=== PATIENT | female | born 1960 | race Caucasian/White ===

== ENCOUNTER 2017-03-28 13:04 | Emergency (ER) | payer MEDICARE, MEDICAID ==
[~2017-03-28] VITALS: Ht 172.7 cm; Wt 120.5 kg
[~2017-03-28 13:04] MED LIST: ATEN25TA PO; CITA20TA9 PO; METH10TA76 PO; OXYC5CAP12 PO
[2017-03-28 13:05] VITALS: Ht 172.7 cm; Wt 120.5 kg
--- OUTSIDE RECORDS SUMMARY | 2017-03-28 13:08 | XMS REPORT | Summary of Care ---
Author Author Alban Basurto M.D. Unknown Address Unknown Phone Unavailable Care Team Providers Care Paint Laboratory Technician Name Role Phone Felisha Basurto M.D. Unavailable Unavailable Cheyenne Singleton Unavailable Unavailable Unavailable Unavailable Functional Status Name Dates Details Functional status health issues are not documented Status: Name Dates Details Cognitive status health issues are not documented Status: Problems Name Dates Details Pre-op exam (V72.84, Z01.818) Status: Active Intractable abdominal pain (789.00, R10.9) Status: Active Chronic pancreatitis (577.1, K86.1) Status: Active Morbid obesity (278.01, E66.01) Status: Active Medications Name Dates Details Methadone HCl TABS Active OxyCODONE HCl TABS * Refills: 0 Active Allergies and Adverse Reactions Name Dates Details No Known Allergies (Allergy) Status: Active Past Medical History Name Dates Details History of abdominal pain (V13.89, Z87.898) Status: Resolved History of Broken bones (829.0, T14.8) Status: Resolved History of Chronic back pain (724.5, M54.9) Status: Resolved History of Decreased vision (369.9, H54.7) Status: Resolved History of depression (V11.8, Z86.59) Status: Resolved History of hearing loss (V12.49, Z86.69) Status: Resolved History of hypertension (V12.59, Z86.79) Status: Resolved History of insomnia (V13.89, Z87.898) Status: Resolved History of malignant neoplasm (V10.90, Z85.9) Status: Resolved History of Weight gain (783.1, R63.5) Status: Resolved Procedures Procedure Dates Details History of Breast Surgery Lumpectomy History of Section Procedures not documented Immunization Name Dates Details Immunizations not documented Family History Name Dates Details Family history of hypertension (V17.49, Z82.49) Comments: Family History Status: Active Family history of malignant neoplasm (V16.9, Z80.9) Comments: Family History Status: Active Family history of osteoporosis (V17.81, Z82.62) Comments: Family History Status: Active Family history of Back pain (724.5, M54.9) Comments: Family History Status: Active Family history of alcoholism (V17.0, Z81.1) Comments: Family History Status: Active Family history of Bleeding disorder (287.9, D68.9) Comments: Family History Status: Active Social History Name Dates Details - Status: Name Dates Details Former smoker Vital Signs Date Test Result Details No Known Vitals to report Results Date Description Value Details Results not documented Plan of Care Name Dates Details Planned Observations Planned Goals not documented Instructions Name Dates Details Instructions not documented Encounters Appointment; Alban Basurto M.D. Encounter Diagnosis: Problem not documented On 19-Oct-2016 11:45 Appointment; Alban Basurto M.D. Encounter Diagnosis: Problem not documented On 30-Sep-2016 08:30
--- OUTSIDE RECORDS SUMMARY | 2017-03-28 13:08 | XMS REPORT | Summary of Care ---
Author Author Alban Basurto M.D. Organization Unknown Address Unknown Phone Unavailable Care Team Providers Care Field Agronomist Name Role Phone Felisha Basurto M.D. Unavailable Unavailable Cheyenne Singleton Unavailable Unavailable Unavailable Unavailable Functional Status Name Dates Details Functional status health issues are not documented Status: Name Dates Details Cognitive status health issues are not documented Status: Problems Name Dates Details Pre-op exam (V72.84, Z01.818) Status: Active Intractable abdominal pain (789.00, R10.9) Status: Active Medications Name Dates Details Medication not documented Allergies and Adverse Reactions Name Dates Details Allergy history not documented Status: Past Medical History Name Dates Details History of abdominal pain (V13.89, Z87.898) Status: Resolved History of Chronic back pain (724.5, M54.9) Status: Resolved History of Decreased vision (369.9, H54.7) Status: Resolved History of depression (V11.8, Z86.59) Status: Resolved History of hearing loss (V12.49, Z86.69) Status: Resolved History of insomnia (V13.89, Z87.898) Status: Resolved History of Weight gain (783.1, R63.5) Status: Resolved Procedures Procedure Dates Details Procedures not documented Immunization Name Dates Details Immunizations not documented Social History Name Dates Details Unknown if ever smoked Vital Signs Date Test Result Details No Known Vitals to report Results Date Description Value Details 30-Sep-2016 11:11 PROTIME PANEL 7000 PROTIME 14.4 secs Range: 12.0-14.9 INR 1.13 Plan of Care Name Dates Details Planned Observations Planned Goals not documented Planned Encounters Appointment; Provider: Alban Basurto M.D. On 05-Oct-2016 12:00 Interventions Provided Labs/Procedures/Imaging* PROTIME PANEL 7000; Done: Sep 30 2016 9:24AM Instructions Name Dates Details Instructions not documented Encounters Appointment; Alban Basurto M.D. Encounter Diagnosis: Problem not documented On 30-Sep-2016 08:30
--- OUTSIDE RECORDS SUMMARY | 2017-03-28 13:08 | XMS REPORT | Referral Summary ---
Author Author [facility] Organization [facility] Address Unknown Phone Unavailable Care Team Providers Care Book Binder Name Role Phone Susan Singleton Primary Care Physician [phone] Encounter Date(s): 09/28/16 - 09/28/16 [facility] [place] [id number] Discharge Diagnosis: Chronic back pain Discharge Diagnosis: Alcoholism Discharge Diagnosis: Abnormal blood sugar Discharge Diagnosis: Acute pancreatitis Discharge Diagnosis: Cellulitis Discharge Diagnosis: Noncompliance Discharge Diagnosis: Morbid obesity Discharge Diagnosis: Benign essential hypertension Discharge Diagnosis: Breast cancer Discharge Disposition: 01-Home or Self Care Attending Physician: Gilson Singleton MD Admitting Physician: Gilson Singleton MD Vital Signs Most recent to 1 oldest [Reference Range]: Blood Pressure 130/90 mmHg [90-140/60-90 mmHg] (09/28/16 4:25 PM) Problem List Condition Effective Dates Status Health Status Informant Alcoholism(Confirmed Active ) Benign essential Active hypertension(Confirm ed) Abnormal blood Active sugar(Confirmed) Chronic back Active pain(Confirmed) Chronic pain Active disorder(Confirmed) Noncompliance(Confir Active med) Abdominal Active hernia(Confirmed) Left hip Active pain(Confirmed) History of bilateral Active breast implants(Confirmed) H/O bilateral Active mastectomy(Confirmed ) Chronic knee Active pain(Confirmed) Breast Active cancer(Confirmed) Menometrorrhagia(Con Active firmed) Morbid Active patient obesity(Confirmed) Tobacco Active patient user(Confirmed) Allergies, Adverse Reactions, Alerts No Known Allergies Medications amitriptyline 75 mg oral tablet 75 mg 1 tabs, Oral, Bedtime (once a day), # 30 tabs, 0 Refill(s), Pharmacy: [facility] [id number], 1 tabs Oral Bedtime (once a day) Start Date: 09/21/16 Status: Ordered atenolol 25 mg oral tablet See Instructions, TAKE 1 TABLET BY MOUTH DAILY, # 30 tabs, eRx: [facility] [id number], TAKE 1 TABLET BY MOUTH DAILY Start Date: 09/07/16 Status: Ordered citalopram 20 mg oral tablet See Instructions, TAKE 1 TABLET BY MOUTH DAILY, # 30 tabs, eRx: [facility] [id number], TAKE 1 TABLET BY MOUTH DAILY Start Date: 09/07/16 Status: Ordered cloNIDine 0.1 mg oral tablet mg tabs, Oral, TID, 0 Refill(s) Start Date: 09/21/16 Status: Ordered fentaNYL Topical, 0 Refill(s) Start Date: 09/21/16 Status: Ordered Keflex 250 mg oral capsule 250 mg 1 caps, Oral, QID, X 10 days, # 40 caps, 0 Refill(s), Pharmacy: [facility] [id number], 1 caps Oral QID,x10 days Start Date: 09/21/16 Stop Date: 10/01/16 Status: Ordered Lasix 20 mg oral tablet 20 mg 1 tabs, Oral, Daily, # 14 tabs, 0 Refill(s), Pharmacy: [id number], 1 tabs Oral Daily Start Date: 09/21/16 Status: Ordered methadone 10 mg oral tablet See Instructions, 2 tabs with bkfst, 2 tabs with lunch, and 3 tabs with supper. Must last 7 days, # 49 tabs, 0 Refill(s) Start Date: 09/21/16 Status: Ordered Norvasc 5 mg oral tablet 5 mg 1 tabs, Oral, BID, # 60 tabs, 0 Refill(s), Pharmacy: [facility], 1 tabs Oral BID Start Date: 06/14/15 Status: Ordered oxyCODONE 5 mg oral tablet 1-2 tabs, Oral, q6hr, as needed for pain, Fifteen tabs must last 7 days., # 15 tabs, 0 Refill(s) Start Date: 09/28/16 Status: Ordered Results No data available for this section Immunizations No data available for this section Procedures No data available for this section Social History Social History Type Response Smoking Status Current every day smoker; Tobacco use per day: Less than 1/4 pack1 1Pt. states she smokes 3 cigarettes a day and is trying to quit. Assessment and Plan Extracted from: Title: Ambulatory Patient Education Author: Gilson Singleton MD Date: Musculoskeletal Back Pain, Adult Back pain is very common in adults.The cause of back pain is rarely dangerous and the pain often gets better over time.The cause of your back pain may not be known. Some common causes of back pain include: Strain of the muscles or ligaments supporting the spine. Wear and tear (degeneration) of the spinal disks. Arthritis. Direct injury to the back. For many people, back pain may return. Since back pain is rarely dangerous, most people can learn to manage this condition on their own. HOME CARE INSTRUCTIONS Watch your back pain for any changes. The following actions may help to lessen any discomfort you are feeling: Remain active. It is stressful on your back to sit or geographic information systems engineer one place for long periods of time. Do not sit, drive, or geographic information systems engineer one place for more than 30 minutes at a time. Take short walks on even surfaces as soon as you are able.Try to increase the length of time you walk each day. Exercise regularly as directed by your health care provider. Exercise helps your back heal faster. It also helps avoid future injury by keeping your muscles strong and flexible. Do not stay in bed.Resting more than 12 days can delay your recovery. Pay attention to your body when you bend and lift. The most comfortable positions are those that put less stress on your recovering back. Always use proper lifting techniques, including: Bending your knees. Keeping the load close to your body. Avoiding twisting. Find a comfortable position to sleep. Use a firm mattress and lie on your side with your knees slightly bent. If you lie on your back, put a pillow under your knees. Avoid feeling anxious or stressed.Stress increases muscle tension and can worsen back pain.It is important to recognize when you are anxious or stressed and learn ways to manage it, such as with exercise. Take medicines only as directed by your health care provider. Over-the- counter medicines to reduce pain and inflammation are often the most helpful. Your health care provider may prescribe muscle relaxant drugs.These medicines help dull your pain so you can more quickly return to your normal activities and healthy exercise. Apply ice to the injured area: Put ice in a plastic bag. Place a towel between your skin and the bag. Leave the ice on for 20 minutes, 23 times a day for the first 23 days. After that, ice and heat may be alternated to reduce pain and spasms. Maintain a healthy weight. Excess weight puts extra stress on your back and makes it difficult to maintain good posture. SEEK MEDICAL CARE IF: You have pain that is not relieved with rest or medicine. You have increasing pain going down into the legs or buttocks. You have pain that does not improve in one week. You have night pain. You lose weight. You have a fever or chills. SEEK IMMEDIATE MEDICAL CARE IF: You develop new bowel or bladder control problems. You have unusual weakness or numbness in your arms or legs. You develop nausea or vomiting. You develop abdominal pain. You feel faint. This information is not intended to replace advice given to you by your health care provider. Make sure you discuss any questions you have with your health care provider. Document Released: 10/18/2006 Document Revised: 11/08/2015 Document Reviewed: [employer] Patient Education 2016 [employer] Preventive Medicine Back Exercises Back exercises help treat and prevent back injuries. The goal of back exercises is to increase the strength of your abdominal and back muscles and the flexibility of your back. These exercises should be started when you no longer have back pain. Back exercises include: Pelvic Tilt. Lie on your back with your knees bent. Tilt your pelvis until the lower part of your back is against the floor. Hold this position 5 to 10 sec and repeat 5 to 10 times. Knee to Chest. Pull first 1 knee up against your chest and hold for 20 to 30 seconds, repeat this with the other knee, and then both knees. This may be done with the other leg straight or bent, whichever feels better. Sit-Ups or Curl-Ups. Bend your knees 90 degrees. Start with tilting your pelvis, and do a partial, slow sit-up, lifting your trunk only 30 to 45 degrees off the floor. Take at least 2 to 3 seconds for each sit-up. Do not do sit-ups with your knees out straight. If partial sit-ups are difficult, simply do the above but with only tightening your abdominal muscles and holding it as directed. Hip-Lift. Lie on your back with your knees flexed 90 degrees. Push down with your feet and shoulders as you raise your hips a couple inches off the floor; hold for 10 seconds, repeat 5 to 10 times. Back arches. Lie on your stomach, propping yourself up on bent elbows. Slowly press on your hands, causing an arch in your low back. Repeat 3 to 5 times. Any initial stiffness and discomfort should lessen with repetition over time. Shoulder-Lifts. Lie face down with arms beside your body. Keep hips and torso pressed to floor as you slowly lift your head and shoulders off the floor. Do not overdo your exercises, especially in the beginning. Exercises may cause you some mild back discomfort which lasts for a few minutes; however, if the pain is more severe, or lasts for more than 15 minutes, do not continue exercises until you see your caregiver. Improvement with exercise therapy for back problems is slow. See your caregivers for assistance with developing a proper back exercise program. This information is not intended to replace advice given to you by your health care provider. Make sure you discuss any questions you have with your health care provider. Document Released: 11/25/2005 Document Revised: 01/09/2013 Document Reviewed: [employer] Interactive Patient Education 2016 [employer] No follow up information was provided. Extracted from: Title: Office Visit Note Author: Gilson Singleton MD Date: 09/28/16 Assessment/Plan Abnormal blood sugar This issue was reviewed, appears stable, and current therapy continued except as mentioned. Appropriate lab was reviewed from the most recent appropriate entry and lab was ordered if needed in the cpoe/nursing orders, and follow up recommended generally in 90 days and no later then six months. NO victoza at this time due to pancreatitis. Was from alcohol but would not restart meds at this time. Acute pancreatitis The patient's issue is nearly or completely resolved. There is no further issues or testing desired by them at this time. See above. Alcoholic pancreatitis Still having some pain from this. Advised NOT to drink ETOH. Continue with bland diet for now. Ordered: Office Visit Level 5 Est 05255 [1] Alcoholism The patient's issue is nearly or completely resolved. There is no further issues or testing desired by them at this time. She reports that was a brief binge and is not and will not repeat her drinking. UDS may be required in the future fora condition of her pain medication. The patient has family members present who are agreeable with today's plan and have no additional concerns or requests. Daughter here. Benign essential hypertension This issue was reviewed, appears stable, and current therapy continued except as mentioned. Appropriate lab was reviewed from the most recent appropriate entry and lab was ordered if needed in the cpoe /nursing orders, and follow up recommended generally in 90 days and no later then six months. The patient had an elevated blood pressure reading and is to monitor their bp and call with a report if consistently > 140/90. [facility]. Breast cancer The patient's issue is nearly or completely resolved. There is no further issues or testing desired by them at this time. Chronic back pain This issue was reviewed, appears stable, and current therapy continued except as mentioned. Appropriate lab was reviewed from the most recent appropriate entry and lab was ordered if needed in the cpoe/nursing orders, and follow up recommended generally in 90 days and no later then six months. After much discussion she wants to continue pain management here. From now on she will only get one week of methadone and oxycodone at a time. Drug screeningmay be required at any time for continuation. Patient is agreeable. [facility] report reviewed. Fentanyl is stopped and methadone was given by Tiffany from 09/14 for 20 days. Chronic back pain I had d/w Dr. Singleton about refilling the pt's meds today. He agreed to fill only for 1 week, then had to have appt with him. I went ahead andprinted off the scripts for methadone and oxycodone and handed to pt in clinic. Unfortunately, we received a call from the pharmacist shortly after she left, and was told that she had just filled methadone #60 on 09/14. D/w pharmacist NOT to fill methadone or oxycodone. Pt is scheduled to RTC on 09/[address] Singleton. Ordered: methadone, See Instructions, 2 tabs with bkfst, 2 tabs with lunch, and 3 tabs with supper. Must last 7 days, # 49 tabs, 0 Refill(s) oxyCODONE, 1-2 tabs, Oral, q6hr, as needed for pain, # 10 tabs, 0 Refill(s), # 30 MUST LAST 15 DAYS Office Visit Level 5 Est [id number] [2] Ordered: oxyCODONE, 1-2 tabs, Oral, q6hr, as needed for pain, Fifteen tabs must last 7 days., # 15 tabs, 0 Refill(s) Morbid obesity Diet and exercise as tolerated and feasible. Consider medication when interested. Noncompliance See above.
--- OUTSIDE RECORDS SUMMARY | 2017-03-28 13:09 | XMS REPORT | Referral Summary ---
Author Author [facility], [facility] Medicine Organization [facility] Address Unknown Phone Unavailable Care Team Providers Care Cooker Helper Name Role Phone Susan Singleton Primary Care Physician [phone] Encounter VC Date(s): 04/06/16 - 04/06/16 [facility] [place] [id number] Discharge Disposition: 01-Home or Self Care Attending Physician: Gilson Singleton MD Admitting Physician: Gilson Singleton MD Vital Signs Most recent to 1 oldest [Reference Range]: Blood Pressure 160/90 mmHg [90-140/60-90 mmHg] *HI* (04/06/16 4:06 PM) Problem List Condition Effective Dates Status Health Status Informant Benign essential Active hypertension(Confirm ed) Abnormal blood Active sugar(Confirmed) Chronic back Active pain(Confirmed) Chronic pain Active disorder(Confirmed) Abdominal Active hernia(Confirmed) Left hip Active pain(Confirmed) History of bilateral Active breast implants(Confirmed) H/O bilateral Active mastectomy(Confirmed ) Chronic knee Active pain(Confirmed) Breast Active cancer(Confirmed) Menometrorrhagia(Con Active firmed) Morbid Active patient obesity(Confirmed) Tobacco Active patient user(Confirmed) Allergies, Adverse Reactions, Alerts No Known Allergies Medications amitriptyline 75 mg oral tablet 75 mg 1 tabs, Oral, Bedtime (once a day), # 30 tabs, 0 Refill(s) Start Date: 04/12/15 Status: Ordered atenolol 25 mg oral tablet 25 mg 1 tabs, Oral, Daily, # 30 tabs, 0 Refill(s), Pharmacy: [facility] [id number], 1 tabs Oral Daily Start Date: 11/20/15 Status: Ordered CeleXA 20 mg oral tablet 20 mg 1 tabs, Oral, Daily, # 30 tabs, 0 Refill(s), Pharmacy: [facility] [id number], 1 tabs Oral Daily Start Date: 01/02/16 Status: Ordered methadone 10 mg oral tablet See Instructions, 2 tabs with bkfst, 2 tabs with lunch, and 3 tabs with supper. Must last 14 Days Fill 04/06/16., # 98 tabs, 0 Refill(s) Start Date: 04/06/16 Status: Ordered Norvasc 5 mg oral tablet 5 mg 1 tabs, Oral, BID, # 60 tabs, 0 Refill(s), Pharmacy: [facility], 1 tabs Oral BID Start Date: 06/14/15 Status: Ordered oxyCODONE 5 mg oral tablet 1-2 tabs, Oral, q6hr, as needed for pain, May fill q 14 days. Fill today ., # 30 tabs, 0 Refill(s), #30 MUST LAST 15 DAYS Start Date: 04/06/16 Status: Ordered Victoza 18 mg/3 mL subcutaneous solution 0.6 mg, SubCutaneous, Daily, # 3 mL, 0 Refill(s), Pharmacy: [facility] [id number], 0.6 mg SubCutaneous Daily,x30 days Start Date: 04/06/16 Stop Date: 05/06/16 Status: Ordered Results Hematology Most recent to 1 oldest [Reference Range]: WBC [4.8-10.8 10.2 10*3/uL 10*3/uL] (04/06/16 4:45 PM) RBC [4.00-5.20] 4.42 (04/06/16 4:45 PM) Hgb [12.0-16.0 14.2 gm/dL gm/dL] (04/06/16 4:45 PM) Hct [37.0-47.0 %] 41.0 % (04/06/16 4:45 PM) MCV [82.0-99.0 fL] 92.8 fL (04/06/16 4:45 PM) MCH [27.0-32.0 pg] 32.1 pg *HI* (04/06/16 4:45 PM) MCHC [32.0-36.0 34.6 gm/dL gm/dL] (04/06/16 4:45 PM) RDW [11.5-14.5 %] 13.4 % (04/06/16 4:45 PM) Platelet [150-400 228 10*3/uL 10*3/uL] (04/06/16 4:45 PM) MPV [8.8-14.8 fL] 11.3 fL (04/06/16 4:45 PM) Immature 0.3 % Granulocytes (04/06/16 4:45 PM) [0.0-1.0 %] Neutrophils [51-75 67 % %] (04/06/16 4:45 PM) Lymphocytes [20-46 23 % %] (04/06/16 4:45 PM) Monocytes [4-11 %] 8 % (04/06/16 4:45 PM) Eosinophils [0-4 %] 2 % (04/06/16 4:45 PM) Basophils [0-2 %] 1 % (04/06/16 4:45 PM) Neutro Absolute 6.85 10*3 [1.90-7.00 10*3] (04/06/16 4:45 PM) Lymph Absolute 2.29 10*3 [0.80-3.30 10*3] (04/06/16 4:45 PM) [place] Absolute 0.80 10*3 [0.30-1.00 10*3] (04/06/16 4:45 PM) Eos Absolute 0.16 10*3 [0.00-0.50 10*3] (04/06/16 4:45 PM) Baso Absolute 0.05 10*3 [0.00-0.20 10*3] (04/06/16 4:45 PM) Chemistry Most recent to 1 oldest [Reference Range]: Sodium Lvl [135-144 140 mEq/L mEq/L] (04/06/16 4:45 PM) Potassium Lvl 3.9 mEq/L [3.5-5.2 mEq/L] (04/06/16 4:45 PM) Chloride [99-111 109 mEq/L mEq/L] (04/06/16 4:45 PM) CO2 [22-31 mEq/L] 23 mEq/L (04/06/16 4:45 PM) AGAP [3-20] 8 (04/06/16 4:45 PM) BUN [10-20 mg/dL] 11 mg/dL (04/06/16 4:45 PM) Glucose Lvl [70-99 91 mg/dL mg/dL] (04/06/16 4:45 PM) Creatinine Lvl 1.08 mg/dL [0.57-1.11 mg/dL] (04/06/16 4:45 PM) eGFR [>60 mL/min] 53 mL/min 1 *ABN* (04/06/16 4:45 PM) Calcium Lvl 9.4 mg/dL [8.9-10.5 mg/dL] (04/06/16 4:45 PM) Albumin Lvl [3.5-5.0 3.9 gm/dL gm/dL] (04/06/16 4:45 PM) Total Protein 7.0 gm/dL [6.4-8.3 gm/dL] (04/06/16 4:45 PM) Globulin [1.8-4.0 3.1 gm/dL gm/dL] (04/06/16 4:45 PM) ALT [0-55 U/L] 89 U/L *HI* (04/06/16 4:45 PM) AST [5-34 U/L] 105 U/L *HI* (04/06/16 4:45 PM) Alk Phos [40-150 98 U/L U/L] (04/06/16 4:45 PM) Bili Total [0.2-1.2 0.4 mg/dL mg/dL] (04/06/16 4:45 PM) TSH with Reflex Free 1.01 T4 [0.35-4.94] (04/06/16 4:45 PM) Hgb A1c [4.1-5.6 %] 5.7 % *HI* (04/06/16 4:45 PM) eAvg Glucose 116.9 mg/dL (04/06/16 4:45 PM) 1Result Comment: Multiply eGFR results by 1.21 for race. Immunizations No data available for this section Procedures No data available for this section Social History Social History Type Response Smoking Status Current every day smoker Assessment and Plan Extracted from: Title: Ambulatory Patient Education Author: Gilson Singleton MD Date: 04/06/16 Family Medicine Back Exercises Back exercises help treat [...] Released: 11/25/2005 Document Revised: 01/09/2013 Document Reviewed: [employer] Patient Information 2015 [employer] No follow up information was provided. Extracted from: Title: Office Visit Note Author: Gilson Singleton MD Date: 04/06/16 Assessment/Plan Abnormal blood sugar This issue was reviewed, appears stable, and current therapy continued except as mentioned. Appropriate lab was reviewed from the most recent appropriate entry and lab was ordered if needed in the cpoe/nursing orders, and follow up recommended generally in 90 days and no later then six months. Lab pending. Benign essential hypertension This issue was reviewed, appears stable, and current therapy continued except as mentioned. Appropriate lab was reviewed from the most recent appropriate entry and lab was ordered if needed in the cpoe /nursing orders, and follow up recommended generally in 90 days and no later then six months. The patient reports their blood pressure has been stable at home and is not having any significant or related problems. There has been no chest pain, chest pressure, soa/casanova. The patient had an elevated blood pressure reading and is to monitor their bp and call with a report if consistently > 140/90. The patient has family members present who are agreeable with today's plan and have no additional concerns or requests. Son here. Breast cancer The patient's issue is nearly [...] days and no later then six months. Methadone to 10mg 2 am, 2 noon, 3 pm, 98 every 14 days. Percocet refilled. Menometrorrhagia Seeing Dr. Vick. Morbid obesity Diet and exercise as tolerated and feasible. Consider medication when interested. See above. Resume victoza. RTC in 30 days. Tobacco user Smoking Cessation was discussed. The patient is welcome to f/u for therapy or medication for smoking cessation at any time that they are willing to quit. Orders: methadone, See Instructions, 2 tabs with bkfst, 2 tabs with lunch, and 3 tabs with supper. Must last 14 Days Fill 04/06/16., # 98 tabs, 0 Refill(s) oxyCODONE, 1-2 tabs, Oral, q6hr, as needed for pain, May fill q 14 days. Fill today 04/06/16., # 30 tabs, 0 Refill(s), #30 MUST LAST 15 DAYS
--- OUTSIDE RECORDS SUMMARY | 2017-03-28 13:09 | XMS REPORT ---
Author Author GENERATED, SYSTEM Organization Unknown Address Unknown Phone Unavailable Care Team Providers [facility] Name Role Phone UNASSIGNED DOCTOR MD OSVALDO DOCTOR PP [phone] Reason For Visit Reason for Visit from 09/07/2016 2:00 AM:* Pt Stated Reason for Adm : Abdominal pain Chief Complaint ACUTE PANCREATITIS Social History Social History from 09/14/2016 1:36 PM:* Tobacco Use? : Light Tobacco Smoker Social History from 09/07/2016 2:00 AM:* Tobacco Use? : Light Tobacco Smoker Functional Status Functional Status from 09/14/2016 8:45 AM:* LOC : Alert * Oriented To : Person,Place,Time * Weight Bearing Status : Full * Assist Level : Partial * # Assists : 1 Functional Status from 09/13/2016 7:25 PM:* LOC : Alert * Oriented To : Person,Place,Time,Event * Weight Bearing Status : Full * Assist Level : Independent * # Assists : 1 Functional Status from 09/13/2016 8:00 AM:* LOC : Alert * Oriented To : Person,Place,Time * Weight Bearing Status : Full * Assist Level : Partial * # Assists : 1 Functional Status from 09/12/2016 9:10 PM:* LOC : Alert * Oriented To : Person,Place,Time,Event * Weight Bearing Status : Full * Assist Level : Partial * # Assists : 1 Functional Status from 09/12/2016 7:55 AM:* LOC : Alert * Oriented To : Person,Place,Time,Event * Weight Bearing Status : Full * Assist Level : Partial * # Assists : 1 Functional Status from 09/11/2016 9:00 PM:* LOC : Alert * Oriented To : Person,Place,Time,Event * Weight Bearing Status : Full * Assist Level : Independent * # Assists : 1 Functional Status from 09/11/2016 10:47 AM:* LOC : Alert * Oriented To : Person,Place,Time,Event * Weight Bearing Status : Full * Assist Level : Partial * # Assists : 1 Functional Status from 09/10/2016 8:40 PM:* LOC : Alert * Oriented To : Person,Place,Time,Event * Weight Bearing Status : Full * Assist Level : Partial * # Assists : 1 Functional Status from 09/10/2016 10:45 AM:* LOC : Alert * Oriented To : Person,Place,Time,Event * Weight Bearing Status : Full * Assist Level : Independent * # Assists : Independent Functional Status from 09/09/2016 8:03 PM:* LOC : Alert * Oriented To : Person,Place,Time,Event * Weight Bearing Status : Full * Assist Level : Partial * # Assists : 1 Functional Status from 09/09/2016 8:00 AM:* Weight Bearing Status : Full * Assist Level : Partial * # Assists : 1 Functional Status from 09/08/2016 10:45 PM:* LOC : Alert * Oriented To : Person,Place,Event * Weight Bearing Status : Full * Assist Level : Partial * # Assists : 1 Functional Status from 09/08/2016 8:41 AM:* LOC : Alert * Oriented To : Person,Place,Time,Event * Weight Bearing Status : Full * Assist Level : Partial * # Assists : 1 Functional Status from 09/07/2016 8:10 PM:* LOC : Alert * Oriented To : Person,Place,Time * Weight Bearing Status : Full * Assist Level : Partial * # Assists : 1 Functional Status from 09/07/2016 9:39 AM:* LOC : Alert * Oriented To : Person,Place,Time,Event * Weight Bearing Status : Full * Assist Level : Partial * # Assists : 1 Functional Status from 09/07/2016 2:00 AM:* LOC : Alert * Oriented To : Person,Place,Time,Event * Weight Bearing Status : Full * Assist Level : Partial * # Assists : 1 Vital Signs Hospital Vital Signs from 09/14/2016 2:49 PM:* Height : 6/1 ft,in * Temperature : 99.1 F * Pulse : 86 * Respirations : 18 * BP : 171/77 Hospital Vital Signs from 09/14/2016 10:30 AM:* Height : 6/1 ft,in * Temperature : 97.6 F * Pulse : 82 * Respirations : 18 * BP : 138/70 Hospital Vital Signs from 09/14/2016 7:38 AM:* Height : 6/1 ft,in * Temperature : 98.1 F * Pulse : 84 * Respirations : 19 * BP : 176/79 Hospital Vital Signs from 09/14/2016 5:29 AM:* Weight : 146.4/ kg * Height : 6/1 ft,in Hospital Vital Signs from 09/13/2016 10:23 PM:* Height : 6/1 ft,in * Temperature : 97.2 F * Pulse : 83 * Respirations : 16 * BP : 145/67 Hospital Vital Signs from 09/13/2016 7:24 PM:* Height : 6/1 ft,in * Temperature : 98.2 F * Pulse : 83 * Respirations : 18 * BP : 137/63 Hospital Vital Signs from 09/13/2016 2:11 PM:* Height : 6/1 ft,in * Temperature : 98.3 F * Pulse : 83 * Respirations : 20 * BP : 145/69 Hospital Vital Signs from 09/13/2016 10:21 AM:* Height : 6/1 ft,in * Temperature : 95.7 F * Pulse : 86 * Respirations : 20 * BP : 133/65 Hospital Vital Signs from 09/13/2016 7:26 AM:* Height : 6/1 ft,in * Temperature : 96.4 F * Pulse : 77 * Respirations : 19 * BP : 142/66 Hospital Vital Signs from 09/12/2016 10:22 PM:* Height : 6/1 ft,in * Temperature : 96.8 F * Pulse : 77 * Respirations : 20 * BP : 126/60 Hospital Vital Signs from 09/12/2016 6:40 PM:* Height : 6/1 ft,in * Temperature : 97.2 F * Pulse : 85 * Respirations : 19 * BP : 144/79 Hospital Vital Signs from 09/12/2016 2:25 PM:* Height : 6/1 ft,in * Temperature : 97.3 F * Pulse : 84 * Respirations : 20 * BP : 171/77 [facility] Vital Signs from 09/12/2016 11:05 AM:* Height : 6/1 ft,in * Temperature : 97.47 F * Pulse : 83 * Respirations : 19 * BP : 169/81 [facility] Vital Signs from 09/12/2016 6:30 AM:* Height : 6/1 ft,in * Temperature : 96.1 F * Pulse : 88 * Respirations : 18 * BP : 132/67 [facility] Vital Signs from 09/12/2016 2:58 AM:* Height : 6/1 ft,in * Temperature : 95.3 F * Pulse : 85 * Respirations : 18 * BP : 151/69 [facility] Vital Signs from 09/11/2016 10:46 PM:* Height : 6/1 ft,in * Temperature : 97.0 F * Pulse : 75 * Respirations : 18 * BP : 130/61 [facility] Vital Signs from 09/11/2016 7:47 PM:* Height : 6/1 ft,in * Temperature : 97.4 F * Pulse : 79 * Respirations : 18 * BP : 121/58 [facility] Vital Signs from 09/11/2016 2:21 PM:* Height : 6/1 ft,in * Temperature : 98.7 F * Pulse : 80 * Respirations : 19 * BP : 153/78 [facility] Vital Signs from 09/11/2016 10:47 AM:* Heart Rate : 80 Hospital Vital Signs from 09/11/2016 9:57 AM:* Height : 6/1 ft,in * Temperature : 98.4 F * Pulse : 83 * Respirations : 20 * BP : 123/64 [facility] Vital Signs from 09/11/2016 9:52 AM:* Weight : 144.0/ kg * Height : 6/1 ft,in Hospital Vital Signs from 09/11/2016 7:00 AM:* Weight : 144.0/ kg * Height : 6/1 ft,in Hospital Vital Signs from 09/11/2016 5:10 AM:* Height : 6/1 ft,in * Temperature : 97.2 F * Pulse : 87 * Respirations : 20 * BP : 161/72 [facility] Vital Signs from 09/10/2016 10:35 PM:* Height : 6/1 ft,in * Temperature : 97.0 F * Pulse : 80 * Respirations : 16 * BP : 143/64 [facility] Vital Signs from 09/10/2016 7:15 PM:* Height : 6/1 ft,in * Temperature : 96.4 F * Pulse : 82 * Respirations : 22 * BP : 133/68 [facility] Vital Signs from 09/10/2016 3:50 PM:* Height : 6/1 ft,in * Temperature : 97.7 F * Pulse : 92 * Respirations : 22 * BP : 184/72 [facility] Vital Signs from 09/10/2016 11:54 AM:* Height : 6/1 ft,in * Temperature : 96.9 F * Pulse : 85 * Respirations : 20 * BP : 134/91 [facility] Vital Signs from 09/10/2016 6:59 AM:* Height : 6/1 ft,in * Temperature : 96.6 F * Pulse : 87 * Respirations : 20 * BP : 144/79 Hospital Vital Signs from 09/10/2016 6:34 AM:* Weight : 141.7/ kg * Height : 6/1 ft,in Hospital Vital Signs from 09/09/2016 11:00 PM:* Height : 6/1 ft,in * Temperature : 96.5 F * Pulse : 78 * Respirations : 20 * BP : 166/97 [facility] Vital Signs from 09/09/2016 7:00 PM:* Height : 6/1 ft,in * Temperature : 98.4 F * Pulse : 82 * Respirations : 20 * BP : 155/75 Hospital Vital Signs from 09/09/2016 3:04 PM:* Weight : 140.2/ kg * Height : 6/1 ft,in Hospital Vital Signs from 09/09/2016 2:19 PM:* Height : 6/1 ft,in * Temperature : 98.8 F * Pulse : 84 * Respirations : 19 * BP : 142/89 [facility] Vital Signs from 09/09/2016 1:38 PM:* Height : 6/1 ft,in * Temperature : 98.9 F * Pulse : 85 * Respirations : 20 * BP : 140/64 [facility] Vital Signs from 09/09/2016 10:44 AM:* Height : 6/1 ft,in * Temperature : 98.2 F * Pulse : 98 * Respirations : 19 * BP : 182/84 [facility] Vital Signs from 09/09/2016 9:17 AM:* Height : 6/1 ft,in * BP : 198/88 [facility] Vital Signs from 09/09/2016 7:37 AM:* Height : 6/1 ft,in * Temperature : 97.1 F * Pulse : 98 * Respirations : 18 * BP : 216/96 [facility] Vital Signs from 09/09/2016 6:15 AM:* Weight : 140.2/ kg * Height : 6/1 ft,in Hospital Vital Signs from 09/09/2016 3:55 AM:* Height : 6/1 ft,in * Pulse : 90 * Respirations : 22 * BP : 226/105 [facility] Vital Signs from 09/09/2016 2:49 AM:* Height : 6/1 ft,in * Temperature : 97.0 F * Pulse : 91 * Respirations : 24 * BP : 225/111 [facility] Vital Signs from 09/08/2016 10:17 PM:* Height : 6/1 ft,in * Temperature : 95.4 F * Pulse : 90 * Respirations : 24 * BP : 218/110 [facility] Vital Signs from 09/08/2016 6:24 PM:* Height : 6/1 ft,in * Temperature : 98.8 F * Pulse : 95 * Respirations : 19 * BP : 202/95 [facility] Vital Signs from 09/08/2016 4:22 PM:* Height : 6/1 ft,in * BP : 197/91 Hospital Vital Signs from 09/08/2016 2:34 PM:* Height : 6/1 ft,in * Temperature : 97.7 F * Pulse : 94 * Respirations : 18 * BP : 208/99 Hospital Vital Signs from 09/08/2016 11:19 AM:* Height : 6/1 ft,in * Temperature : 97.8 F * Pulse : 90 * Respirations : 20 * BP : 188/86 [facility] Vital Signs from 09/08/2016 7:32 AM:* Height : 6/1 ft,in * Temperature : 96.3 F * Pulse : 91 * Respirations : 22 * BP : 142/79 [facility] Vital Signs from 09/08/2016 3:50 AM:* Height : 6/1 ft,in * Temperature : 96.2 F * Pulse : 90 * Respirations : 22 * BP : 208/102 [facility] Vital Signs from 09/07/2016 10:51 PM:* Height : 6/1 ft,in * Temperature : 98.0 F * Pulse : 90 * Respirations : 20 * BP : 198/85 Hospital Vital Signs from 09/07/2016 7:10 PM:* Height : 6/1 ft,in * Temperature : 96.8 F * Pulse : 88 * Respirations : 20 * BP : 193/67 [facility] Vital Signs from 09/07/2016 2:51 PM:* Height : 6/1 ft,in * Temperature : 97.5 F * Pulse : 94 * Respirations : 20 * BP : 197/93 [facility] Vital Signs from 09/07/2016 9:59 AM:* Height : 6/1 ft,in * Temperature : 98.7 F * Pulse : 92 * Respirations : 20 * BP : 197/86 [facility] Vital Signs from 09/07/2016 9:39 AM:* Heart Rate : 68 Hospital Vital Signs from 09/07/2016 7:10 AM:* Height : 6/1 ft,in * Temperature : 97.7 F * Pulse : 88 * Respirations : 20 * BP : 190/86 [facility] Vital Signs from 09/07/2016 3:34 AM:* Height : 6/1 ft,in * Pulse : 87 * BP : 190/85 Hospital Vital Signs from 09/07/2016 2:00 AM:* Weight : 136.5/ kg * Height : 6/1 ft,in Hospital Vital Signs from 09/07/2016 1:50 AM:* Height : 6/1 ft,in * Temperature : 97.2 F * Pulse : 87 * Respirations : 22 * BP : 233/102 Results Blood Gas from 09/09/2016 9:55 AM*ARTERIAL PH 7.452 H (7.350-7.450 ) *ARTERIAL PC02 28.3 MM HG L (35.0-45.0 MM HG) *ART. PO2 77 MM HG L (80-95 MM HG) *ART. TOTAL CO2 17.0 mmol/L L (20.0-30.0 mmol/L) *ART. BICARBONATE 19.5 MEQ/L (19.0-29.0 MEQ/L) *ART. BASE EXCESS -2.8 L (-2.5-2.5 ) ART. O2 SATURATION 96.2 % (91.0-97.0 %) *PATIENT ATMOSPHERE ROOM AIR *SPECIMEN SITE ARTERIAL Chemistry from 09/13/2016 5:47 AMSODIUM 136 MMOL/L (136-145 MMOL/L) POTASSIUM 3.4 MMOL/L L (3.5-5.1 MMOL/L) CHLORIDE 102 MMOL/L (98-107 MMOL/L) TCO2 23.4 MMOL/L (21.0-32.0 MMOL/L) *ANION GAP 10.6 MMOL/L (8.0-16.0 MMOL/L) BUN 10 MG/DL (7-18 MG/DL) CREATININE 1.06 MG/DL H (0.55-1.02 MG/DL) *BUN/CREATININE RATIO 9.4 (9.1-17.0 ) GLUCOSE 96 MG/DL (65-99 MG/DL) *GFR EST NON AFR BRITISH 59 ML/MIN *GFR EST AFR AMER 69 ML/MIN CALCIUM 8.6 MG/DL (8.5-10.1 MG/DL) ALBUMIN 1.7 GM/DL L (3.4-5.0 GM/DL) PHOSPHORUS 3.3 MG/DL (2.6-4.7 MG/DL) LIPASE 110 U/L (73-393 U/L) Chemistry from 09/12/2016 5:53 AMSODIUM 133 MMOL/L L (136-145 MMOL/L) POTASSIUM 3.1 MMOL/L L (3.5-5.1 MMOL/L) CHLORIDE 101 MMOL/L (98-107 MMOL/L) TCO2 24.8 MMOL/L (21.0-32.0 MMOL/L) *ANION GAP 7.2 MMOL/L L (8.0-16.0 MMOL/L) BUN 10 MG/DL (7-18 MG/DL) CREATININE 1.12 MG/DL H (0.55-1.02 MG/DL) *BUN/CREATININE RATIO 8.9 L (9.1-17.0 ) GLUCOSE 82 MG/DL (65-99 MG/DL) *GFR EST NON AFR BRITISH 55 ML/MIN *GFR EST AFR AMER 64 ML/MIN CALCIUM 8.5 MG/DL (8.5-10.1 MG/DL) BILIRUBIN TOTAL 0.80 MG/DL (0.20-1.00 MG/DL) TOTAL PROTEIN 6.2 GM/DL L (6.4-8.2 GM/DL) ALBUMIN 1.7 GM/DL L (3.4-5.0 GM/DL) *GLOBULIN 4.5 GM/DL H (2.3-3.5 GM/DL) *A/G RATIO 0.4 MG/DL L (1.5-2.2 MG/DL) ALK PHOS 106 U/L (46-116 U/L) ALT (SGPT) 18 U/L (16-63 U/L) AST (SGOT) 28 U/L (15-37 U/L) Chemistry from 09/11/2016 5:40 AMSODIUM 134 MMOL/L L (136-145 MMOL/L) POTASSIUM 3.4 MMOL/L L (3.5-5.1 MMOL/L) CHLORIDE 101 MMOL/L (98-107 MMOL/L) TCO2 25.5 MMOL/L (21.0-32.0 MMOL/L) *ANION GAP 7.5 MMOL/L L (8.0-16.0 MMOL/L) BUN 11 MG/DL (7-18 MG/DL) CREATININE 1.20 MG/DL H (0.55-1.02 MG/DL) *BUN/CREATININE RATIO 9.2 (9.1-17.0 ) GLUCOSE 83 MG/DL (65-99 MG/DL) *GFR EST NON AFR BRITISH 51 ML/MIN *GFR EST AFR AMER 59 ML/MIN CALCIUM 8.2 MG/DL L (8.5-10.1 MG/DL) BILIRUBIN TOTAL 0.80 MG/DL (0.20-1.00 MG/DL) TOTAL PROTEIN 6.2 GM/DL L (6.4-8.2 GM/DL) ALBUMIN 1.8 GM/DL L (3.4-5.0 GM/DL) *GLOBULIN 4.4 GM/DL H (2.3-3.5 GM/DL) *A/G RATIO 0.4 MG/DL L (1.5-2.2 MG/DL) ALK PHOS 93 U/L (46-116 U/L) ALT (SGPT) 19 U/L (16-63 U/L) AST (SGOT) 25 U/L (15-37 U/L) LIPASE 129 U/L (73-393 U/L) Chemistry from 09/10/2016 6:45 AMSODIUM 134 MMOL/L L (136-145 MMOL/L) POTASSIUM 3.9 MMOL/L (3.5-5.1 MMOL/L) CHLORIDE 101 MMOL/L (98-107 MMOL/L) TCO2 25.1 MMOL/L (21.0-32.0 MMOL/L) *ANION GAP 7.9 MMOL/L L (8.0-16.0 MMOL/L) BUN 9 MG/DL (7-18 MG/DL) CREATININE 1.06 MG/DL H (0.55-1.02 MG/DL) *BUN/CREATININE RATIO 8.5 L (9.1-17.0 ) GLUCOSE 83 MG/DL (65-99 MG/DL) *GFR EST NON AFR BRITISH 59 ML/MIN *GFR EST AFR AMER 69 ML/MIN CALCIUM 8.2 MG/DL L (8.5-10.1 MG/DL) BILIRUBIN TOTAL 0.90 MG/DL (0.20-1.00 MG/DL) TOTAL PROTEIN 6.4 GM/DL (6.4-8.2 GM/DL) ALBUMIN 2.0 GM/DL L (3.4-5.0 GM/DL) *GLOBULIN 4.4 GM/DL H (2.3-3.5 GM/DL) *A/G RATIO 0.5 MG/DL L (1.5-2.2 MG/DL) ALK PHOS 89 U/L (46-116 U/L) ALT (SGPT) 19 U/L (16-63 U/L) AST (SGOT) 23 U/L (15-37 U/L) Chemistry from 09/09/2016 6:24 AMSODIUM 135 MMOL/L L (136-145 MMOL/L) POTASSIUM 3.7 MMOL/L (3.5-5.1 MMOL/L) CHLORIDE 102 MMOL/L (98-107 MMOL/L) TCO2 24.5 MMOL/L (21.0-32.0 MMOL/L) *ANION GAP 8.5 MMOL/L (8.0-16.0 MMOL/L) BUN 7 MG/DL (7-18 MG/DL) CREATININE 1.11 MG/DL H (0.55-1.02 MG/DL) *BUN/CREATININE RATIO 6.3 L (9.1-17.0 ) GLUCOSE 95 MG/DL (65-99 MG/DL) *GFR EST NON AFR BRITISH 56 ML/MIN *GFR EST AFR AMER 65 ML/MIN CALCIUM 8.6 MG/DL (8.5-10.1 MG/DL) BILIRUBIN TOTAL 1.20 MG/DL H (0.20-1.00 MG/DL) TOTAL PROTEIN 7.0 GM/DL (6.4-8.2 GM/DL) ALBUMIN 2.5 GM/DL L (3.4-5.0 GM/DL) *GLOBULIN 4.5 GM/DL H (2.3-3.5 GM/DL) *A/G RATIO 0.6 MG/DL L (1.5-2.2 MG/DL) ALK PHOS 91 U/L (46-116 U/L) ALT (SGPT) 25 U/L (16-63 U/L) AST (SGOT) 28 U/L (15-37 U/L) LIPASE 1708 U/L H (73-393 U/L) LDH 316 U/L H (81-234 U/L) Chemistry from 09/08/2016 7:36 AMSODIUM 137 MMOL/L (136-145 MMOL/L) POTASSIUM 4.2 MMOL/L (3.5-5.1 MMOL/L) CHLORIDE 103 MMOL/L (98-107 MMOL/L) TCO2 24.0 MMOL/L (21.0-32.0 MMOL/L) *ANION GAP 10.0 MMOL/L (8.0-16.0 MMOL/L) BUN 8 MG/DL (7-18 MG/DL) CREATININE 1.03 MG/DL H (0.55-1.02 MG/DL) *BUN/CREATININE RATIO 7.8 L (9.1-17.0 ) GLUCOSE 82 MG/DL (65-99 MG/DL) *GFR EST NON AFR BRITISH 61 ML/MIN *GFR EST AFR AMER 71 ML/MIN CALCIUM 8.7 MG/DL (8.5-10.1 MG/DL) BILIRUBIN TOTAL 1.00 MG/DL (0.20-1.00 MG/DL) TOTAL PROTEIN 7.2 GM/DL (6.4-8.2 GM/DL) ALBUMIN 2.7 GM/DL L (3.4-5.0 GM/DL) *GLOBULIN 4.5 GM/DL H (2.3-3.5 GM/DL) *A/G RATIO 0.6 MG/DL L (1.5-2.2 MG/DL) ALK PHOS 96 U/L (46-116 U/L) ALT (SGPT) 32 U/L (16-63 U/L) AST (SGOT) 37 U/L (15-37 U/L) Chemistry from 09/07/2016 9:36 AMALCOHOL <0.003 GM/DL Chemistry from 09/07/2016 5:32 AMSODIUM 140 MMOL/L (136-145 MMOL/L) POTASSIUM 4.0 MMOL/L (3.5-5.1 MMOL/L) CHLORIDE 104 MMOL/L (98-107 MMOL/L) TCO2 28.6 MMOL/L (21.0-32.0 MMOL/L) *ANION GAP 7.4 MMOL/L L (8.0-16.0 MMOL/L) BUN 9 MG/DL (7-18 MG/DL) CREATININE 1.23 MG/DL H (0.55-1.02 MG/DL) *BUN/CREATININE RATIO 7.3 L (9.1-17.0 ) GLUCOSE 129 MG/DL H (65-99 MG/DL) CALCIUM 8.8 MG/DL (8.5-10.1 MG/DL) BILIRUBIN TOTAL 0.60 MG/DL (0.20-1.00 MG/DL) TOTAL PROTEIN 7.1 GM/DL (6.4-8.2 GM/DL) ALBUMIN 2.9 GM/DL L (3.4-5.0 GM/DL) *GLOBULIN 4.2 GM/DL H (2.3-3.5 GM/DL) *A/G RATIO 0.7 MG/DL L (1.5-2.2 MG/DL) ALK PHOS 104 U/L (46-116 U/L) ALT (SGPT) 46 U/L (16-63 U/L) AST (SGOT) 68 U/L H (15-37 U/L) LIPASE 1614 U/L H (73-393 U/L) CHOLESTEROL 199 MG/DL (50-199 MG/DL) TRIGLYCERIDES 52 MG/DL (0-149 MG/DL) HDL CHOLESTEROL 84 MG/DL H (40-60 MG/DL) LDL (CALCULATED CHOL 105 MG/DL H (0-99 MG/DL) Hematology from 09/12/2016 5:53 AMWBC 14.1 X10e3/UL H (3.6-11.2 X10e3/UL) RBC 3.60 X10e6/UL L (3.63-4.92 X10e6/UL) HEMOGLOBIN 11.7 G/DL (11.0-14.3 G/DL) HEMATOCRIT 35.1 % (31.2-41.9 %) *MCV 97.5 FL (79.0-98.0 FL) *MCH 32.4 PG (27.0-33.0 PG) *MCHC 33.3 G/DL (32.0-36.0 G/DL) *RDW 14.4 % (12.3-17.0 %) *RDWSD 49.4 H (37.1-47.8 ) PLATELET 158 X10e3/UL L (159-386 X10e3/UL) *MPV 9.7 FL (7.4-10.4 FL) *MANUAL DIFF PERFORMED SEGS 71.0 % *BANDS 15.0 % *LYMPHOCYTES 4.0 % *MONOCYTES 6.0 % *EOSINOPHILS 2.0 % *BASOPHILS 0.0 % METAMYELOCYTES 2.0 % *ABSOLUTE NEUTROPHILS 12.41 X10e3/UL H (1.80-7.80 X10e3/UL) *ABSOLUTE LYMPHOCYTES 0.56 X10e3/UL L (1.00-3.00 X10e3/UL) *ABSOLUTE MONOCYTES 0.85 X10e3/UL (0.30-1.00 X10e3/UL) *ABSOLUTE EOSINOPHILS 0.28 X10e3/UL (0.00-0.50 X10e3/UL) *ABSOLUTE BASOPHILS 0.00 X10e3/UL (0.00-0.20 X10e3/UL) *TOXIC GRANULATION 1+ WBC VACUOLES 2+ Hematology from 09/11/2016 5:40 AMWBC 17.0 X10e3/UL H (3.6-11.2 X10e3/UL) RBC 3.85 X10e6/UL (3.63-4.92 X10e6/UL) HEMOGLOBIN 12.1 G/DL (11.0-14.3 G/DL) HEMATOCRIT 37.9 % (31.2-41.9 %) *MCV 98.5 FL H (79.0-98.0 FL) *MCH 31.4 PG (27.0-33.0 PG) *MCHC 31.9 G/DL L (32.0-36.0 G/DL) *RDW 14.1 % (12.3-17.0 %) *RDWSD 48.6 H (37.1-47.8 ) PLATELET 134 X10e3/UL L (159-386 X10e3/UL) *MPV 9.9 FL (7.4-10.4 FL) *MANUAL DIFF PERFORMED SEGS 79.0 % *BANDS 12.0 % *LYMPHOCYTES 6.0 % *MONOCYTES 2.0 % *EOSINOPHILS 1.0 % *BASOPHILS 0.0 % *ABSOLUTE NEUTROPHILS 15.47 X10e3/UL H (1.80-7.80 X10e3/UL) *ABSOLUTE LYMPHOCYTES 1.02 X10e3/UL (1.00-3.00 X10e3/UL) *ABSOLUTE MONOCYTES 0.34 X10e3/UL (0.30-1.00 X10e3/UL) *ABSOLUTE EOSINOPHILS 0.17 X10e3/UL (0.00-0.50 X10e3/UL) *ABSOLUTE BASOPHILS 0.00 X10e3/UL (0.00-0.20 X10e3/UL) Hematology from 09/10/2016 6:45 AMWBC 20.9 X10e3/UL H (3.6-11.2 X10e3/UL) RBC 4.00 X10e6/UL (3.63-4.92 X10e6/UL) HEMOGLOBIN 13.0 G/DL (11.0-14.3 G/DL) HEMATOCRIT 39.6 % (31.2-41.9 %) *MCV 99.0 FL H (79.0-98.0 FL) *MCH 32.4 PG (27.0-33.0 PG) *MCHC 32.7 G/DL (32.0-36.0 G/DL) *RDW 14.7 % (12.3-17.0 %) *RDWSD 51.2 H (37.1-47.8 ) PLATELET 141 X10e3/UL L (159-386 X10e3/UL) *MPV 10.3 FL (7.4-10.4 FL) *MANUAL DIFF PERFORMED SEGS 92.0 % *BANDS 4.0 % *LYMPHOCYTES 1.0 % *MONOCYTES 1.0 % *EOSINOPHILS 0.0 % *BASOPHILS 0.0 % *REACTIVE LYMPHOCYTES 2.0 % *ABSOLUTE NEUTROPHILS 20.06 X10e3/UL H (1.80-7.80 X10e3/UL) *ABSOLUTE LYMPHOCYTES 0.63 X10e3/UL L (1.00-3.00 X10e3/UL) *ABSOLUTE MONOCYTES 0.21 X10e3/UL L (0.30-1.00 X10e3/UL) *ABSOLUTE EOSINOPHILS 0.00 X10e3/UL (0.00-0.50 X10e3/UL) *ABSOLUTE BASOPHILS 0.00 X10e3/UL (0.00-0.20 X10e3/UL) *POLYCHROMASIA 1+ ANISOCYTOSIS 3+ WBC VACUOLES 1+ Hematology from 09/09/2016 6:24 AMWBC 23.0 X10e3/UL H (3.6-11.2 X10e3/UL) RBC 4.34 X10e6/UL (3.63-4.92 X10e6/UL) HEMOGLOBIN 14.0 G/DL (11.0-14.3 G/DL) HEMATOCRIT 42.7 % H (31.2-41.9 %) *MCV 98.5 FL H (79.0-98.0 FL) *MCH 32.3 PG (27.0-33.0 PG) *MCHC 32.8 G/DL (32.0-36.0 G/DL) *RDW 14.7 % (12.3-17.0 %) *RDWSD 50.8 H (37.1-47.8 ) PLATELET 144 X10e3/UL L (159-386 X10e3/UL) *MPV 10.0 FL (7.4-10.4 FL) *MANUAL DIFF PERFORMED SEGS 82.0 % *BANDS 8.0 % *LYMPHOCYTES 7.0 % *MONOCYTES 2.0 % *EOSINOPHILS 0.0 % *BASOPHILS 0.0 % *REACTIVE LYMPHOCYTES 1.0 % *ABSOLUTE NEUTROPHILS 20.70 X10e3/UL H (1.80-7.80 X10e3/UL) *ABSOLUTE LYMPHOCYTES 1.84 X10e3/UL (1.00-3.00 X10e3/UL) *ABSOLUTE MONOCYTES 0.46 X10e3/UL (0.30-1.00 X10e3/UL) *ABSOLUTE EOSINOPHILS 0.00 X10e3/UL (0.00-0.50 X10e3/UL) *ABSOLUTE BASOPHILS 0.00 X10e3/UL (0.00-0.20 X10e3/UL) *POLYCHROMASIA 1+ *TOXIC GRANULATION 1+ Hematology from 09/08/2016 7:36 AMWBC 20.8 X10e3/UL H (3.6-11.2 X10e3/UL) RBC 4.74 X10e6/UL (3.63-4.92 X10e6/UL) HEMOGLOBIN 14.9 G/DL H (11.0-14.3 G/DL) HEMATOCRIT 45.5 % H (31.2-41.9 %) *MCV 95.9 FL (79.0-98.0 FL) *MCH 31.5 PG (27.0-33.0 PG) *MCHC 32.8 G/DL (32.0-36.0 G/DL) *RDW 13.8 % (12.3-17.0 %) PLATELET 148 X10e3/UL L (159-386 X10e3/UL) *MPV 9.8 FL (7.4-10.4 FL) *MANUAL DIFF PERFORMED SEGS 92.0 % *BANDS 5.0 % *LYMPHOCYTES 2.0 % *MONOCYTES 1.0 % *EOSINOPHILS 0.0 % *BASOPHILS 0.0 % *ABSOLUTE NEUTROPHILS 20.18 X10e3/UL H (1.80-7.80 X10e3/UL) *ABSOLUTE LYMPHOCYTES 0.42 X10e3/UL L (1.00-3.00 X10e3/UL) *ABSOLUTE MONOCYTES 0.21 X10e3/UL L (0.30-1.00 X10e3/UL) *ABSOLUTE EOSINOPHILS 0.00 X10e3/UL (0.00-0.50 X10e3/UL) *ABSOLUTE BASOPHILS 0.00 X10e3/UL (0.00-0.20 X10e3/UL) *PLATELET SLIDE REVIEW DECREASED A (ADEQUATE ) Hematology from 09/07/2016 5:32 AMWBC 10.2 X10e3/UL (3.6-11.2 X10e3/UL) RBC 4.25 X10e6/UL (3.63-4.92 X10e6/UL) HEMOGLOBIN 13.8 G/DL (11.0-14.3 G/DL) HEMATOCRIT 41.1 % (31.2-41.9 %) *MCV 96.6 FL (79.0-98.0 FL) *MCH 32.5 PG (27.0-33.0 PG) *MCHC 33.6 G/DL (32.0-36.0 G/DL) *RDW 14.0 % (12.3-17.0 %) *RDWSD 47.7 (37.1-47.8 ) PLATELET 177 X10e3/UL (159-386 X10e3/UL) *MPV 9.2 FL (7.4-10.4 FL) AUTOMATED DIFF PERFORMED SEGS 87.1 % *LYMPHOCYTES 7.8 % *MONOCYTES 4.1 % *EOSINOPHILS 0.0 % *BASOPHILS 1.0 % *ABSOLUTE NEUTROPHILS 8.90 X10e3/UL H (1.80-7.80 X10e3/UL) *ABSOLUTE LYMPHOCYTES 0.80 X10e3/UL L (1.00-3.00 X10e3/UL) *ABSOLUTE MONOCYTES 0.40 X10e3/UL (0.30-1.00 X10e3/UL) *ABSOLUTE EOSINOPHILS 0.00 X10e3/UL (0.00-0.50 X10e3/UL) *ABSOLUTE BASOPHILS 0.10 X10e3/UL (0.00-0.20 X10e3/UL) Urinalysis from 09/08/2016 8:50 AM* Status: Final Result URINALYSIS Specimen Number: [id number] Sample Collection Date/Time: 09/08/2016 8:50 AM Specimen Source: *URINE COLOR DK YELLOW (STRAW/YELL/DK YELL ) *URINE APPEARANCE SL CLOUDY A (CLEAR ) URINE PH 7.0 (5.0-8.0 ) URINE SPECIFIC GRAVITY 1.015 (<=1.005->=1.030 ) *URINE GLUCOSE NEGATIVE MG/DL (NEGATIVE MG/DL) *URINE BILIRUBIN NEGATIVE (NEGATIVE ) *URINE KETONES TRACE MG/DL A (NEGATIVE MG/DL) *URINE BLOOD TRACE-INTACT A (NEGATIVE ) *URINE PROTEIN NEGATIVE MG/DL (NEGATIVE MG/DL) *URINE UROBILINOGEN 1.0 EU/DL (0.2-1.0 EU/DL) *URINE NITRITES NEGATIVE (NEGATIVE ) *URINE LEUKOCYTES NEGATIVE (NEGATIVE ) *MICROSCOPIC EXAM PERFORMED PERFORMED *WBC URINE 1-5 /HPF (0-5 /HPF) *RBC URINE 1-5 /HPF A (0-1 /HPF) *SQUAMOUS EP. CELLS FEW /LPF (NEG-FEW /LPF) *MUCOUS THREADS FEW /LPF A (NEGATIVE /LPF) Coagulation from 09/14/2016 5:59 AM*PROTHROMBIN TIME 12.0 SECONDS H (9.4-11.5 SECONDS) *INR 1.2 H (0.9-1.1 ) Coagulation from 09/13/2016 5:47 AM*PROTHROMBIN TIME 12.4 SECONDS H (9.4-11.5 SECONDS) *INR 1.2 H (0.9-1.1 ) Coagulation from 09/12/2016 5:53 AM*PROTHROMBIN TIME 12.0 SECONDS H (9.4-11.5 SECONDS) *INR 1.2 H (0.9-1.1 ) Coagulation from 09/11/2016 5:40 AM*PROTHROMBIN TIME 12.0 SECONDS H (9.4-11.5 SECONDS) *INR 1.2 H (0.9-1.1 ) Coagulation from 09/10/2016 6:45 AM*PROTHROMBIN TIME 12.0 SECONDS H (9.4-11.5 SECONDS) *INR 1.2 H (0.9-1.1 ) Coagulation from 09/09/2016 6:24 AM*PROTHROMBIN TIME 12.4 SECONDS H (9.4-11.5 SECONDS) *INR 1.2 H (0.9-1.1 ) Coagulation from 09/08/2016 7:36 AM*PROTHROMBIN TIME 11.5 SECONDS (9.4-11.5 SECONDS) *INR 1.1 (0.9-1.1 ) Microbiology from 09/08/2016 10:56 AM* CULTURE URINE Specimen Number: [id number] Sample Collection Date/Time: 09/08/2016 10:56 AM Specimen Source: Urine Clean Catch CULTURE URINE: 10,000 cfu/ml - 50,000 cfu/ml 3 or more gram positive colony types Suggestive of colonization or contamination DX Radiology from 09/12/2016 5:02 AMCHEST 1 VIEW History: SOA Priors: 09/11/16 Findings: The cardiac silhouette is mildly enlarged. The pulmonary vasculature is borderline prominent. There no focal areas consolidation or pleural effusion. Impression: Mild cardiomegaly and borderline pulmonary venous congestion. Electronically signed by: Ananda Ibarra MD Dictated: 09/12/2016 08:21 DX Radiology from 09/11/2016 4:43 AMCHEST 1 VIEW History: Shortness of breath Priors: 09/10/2016 Findings: Heart size is the upper limits normal. No acute infiltrate, pneumothorax or pleural effusions identified. Impression: No evidence of acute cardiopulmonary process. Electronically signed by: Bryan Szymanski MD Dictated: 09/11/2016 08:01 DX Radiology from 09/10/2016 4:51 AMCHEST 1 VIEW History: Shortness of breath Priors: 09/09/2016 Findings: No acute infiltrate, pneumothorax or pleural effusions are identified. The heart size is normal. Impression: No evidence of acute cardiopulmonary process. Electronically signed by: Bryan Szymanski MD Dictated: 09/10/2016 08:46 DX Radiology from 09/09/2016 5:32 AMCHEST 1 VIEW History: SOA Priors: 09/08/16 Findings: The cardiac silhouette is mildly enlarged. The pulmonary vasculature is within normal limits. There are no acute infiltrates or effusions. Impression: Mild cardiomegaly without acute findings. Electronically signed by: Ananda Ibarra MD Dictated: 09/09/2016 08:29 DX Radiology from 09/08/2016 5:13 AMCHEST 1 VIEW History: Shortness of breath Priors: None Findings: No acute infiltrate, pneumothorax or pleural effusions are identified. The heart size is normal. Impression: No evidence acute cardiopulmonary process. Electronically signed by: Bryan Szymanski MD Dictated: 09/08/2016 08:29 DX Radiology from 09/07/2016 3:08 PMABDOMEN (KUB) 1 VIEW History: Abdominal Pain diffuse . Priors: none Findings: The upper abdomen is not included on the film. No dilated loops of bowel are demonstrated. High attenuation material is noted in the urinary bladder, most consistent with excreted contrast material. There are no suspicious calcifications for Impression: Unremarkable bowel gas pattern. Electronically signed by: Ananda Ibarra MD Dictated: 09/07/2016 15:34 CT Scan from 09/09/2016 10:50 AMCT ABD/PELVIS W/CONTRAST History: acute pancreatitis with abd distention . Technique: Post contrast images were performed after the administration of 95 milliliters of Isovue intravenous contrast. Arterial phase images were obtained through the pancreas with portal venous phase through the abdomen pelvis. Priors: 09/07/2016 Findings: Abdomen Lung bases: Clear Liver: There is marked fatty infiltration of the liver No definable mass. Spleen: Normal. Pancreas: Since prior study is been slight interval worsening of peripancreatic inflammatory change with enlargement and edema pancreatic head consistent acute pancreatitis. No discrete masses or fluid collections are identified. Gallbladder and biliary tract: No radiodense calculus or dilation. Adrenal glands: Normal. Kidneys: Normal enhancement. No masses. No radiodense stones or hydronephrosis. Urinary Bladder: Normal. Aorta: Normal in caliber. No periaortic lymphadenopathy. Bowel and Mesentery: Grossly normal. No findings of appendicitis. Ascites: There has been slight increase in mild reactive ascites. Pelvis Lymphadenopathy: None. Reproductive: Unremarkable. Osseous Structures: No suspicious findings. Impression: Worsening moderate pancreatitis without evidence of discrete mass or fluid collection. Unchanged severe fatty infiltration of the liver. Electronically signed by: Bryan Szymanski MD Dictated: 09/09/2016 12:39 Problems Encounter Diagnosis * Acute Pain Status:Active. * Acute Pancreatitis Status:Active. * Chronic Pain Status:Active. * Disturbance in Sleep Behavior Status:Active. * Fall Risk Status:Active. * Hypertensive Disorder Status:Active. * Mobility Impairment Status:Active. * Morbid Obesity Status:Active. * Nutritional Deficiency Status:Active. Encounters Encounter Diagnosis * Acute Pain Status:Active. * Acute Pancreatitis Status:Active. * Chronic Pain Status:Active. * Disturbance in Sleep Behavior Status:Active. * Fall Risk Status:Active. * Hypertensive Disorder Status:Active. * Mobility Impairment Status:Active. * Morbid Obesity Status:Active. * Nutritional Deficiency Status:Active. Plan of Care Follow-up Appointments from 09/14/2016 1:36 PM:* #1 Office appointment: : Dr Basurto * #1 Date/Time : 09/30/2016 8:30 AM * #2 Office appointment: : Ora Burger APRN * #2 Date/Time : 09/15/2016 10:45 AM Treatment Plan from 09/11/2016 10:40 AM:* Care Management Note : Air Pollution Control Engineer reviewed POC w/ Grace Guzman SW et interdisciplinary team during care rounds. Dr. Basurto was consulted for pain management. His consult stated that he would dc Fentanyl Patch, Dilaudid IV et Morphine IV et transition patient to Demerol/Phenergan IM q 6 hrs et change to Brutrans patch. Pharmacy does not carry Brutrans patch. They contacted Dr. Basurto et received order to cont Fentanyl patch. Air Pollution Control Engineer noted that patient cont to receive Dilaudid et Morphine IV overnight. Air Pollution Control Engineer spoke w/ FELIPE Colón et updated on Dr. Basurto's consult. Will need to clarify pain medication orders. Dr. Sands will dc. Treatment Plan from 09/09/2016 11:00 AM:* Care Management Note : Air Pollution Control Engineer reviewed POC w/ Dr. Sands, JOB Edwards et interdisciplinary team during care rounds. voiced concern over patient's clinical condition. WBC et Lipase cont to rise. Patient w/ increasingly symptomatic. Dr. Sands to contact GI re: concerns. May require transfer to ICU vs transfer [facility] for GI specialist. Treatment Plan from 09/08/2016 12:10 PM:* Care Management Note : SW'er met with patient to discuss discharge planning. Patient lives at home alone in [place]. She denies the need for any services at discharge and states her only concern is that she has an appointment tomorrow with the doctor who prescribes her methadone and if she misses it she will not be able to get it. 'er recommended that she contact the doctor's office and explain her situation. SW' er offered to be available if needed to confirm she was in the hospital. Patient voiced understanding and stated she would contact them. She voiced no additional questions or concerns and stated that she should be able to return home without any new services or DME. 'er informed patient that if she ever needed services, she might be able to get in home care with her Medicaid. Patient voiced understanding. 'er provided contact information and will be available if needs arise. Treatment Plan from 09/07/2016 9:23 AM:* Care Management Note : Patient is inpatient being treated for acute pancreatitis with severe epigastric pain, lipase 1614, CT showing pancreatic inflammation. She is NPO, receiving IVF at 150 hr, pain control with Dilaudid, nausea control with Kytril, IV Hydralazine prn with BP 233/102. Meets medical necessity for inpatient. Procedures No relevant procedures performed. Immunizations * INFLUEN VACC 2016-17(GLAXO) (FLUARIX 2016-17 (GLAXO)); Not Administered 09/14 3:23 PM; Patient decision Hospital Course Hospital Discharge Instructions How to care for yourself at home from 09/14/2016 1:36 PM:* Discharge Activity : Activity as tolerated * Discharge Diet : As before hospitalization * Discharge Diet: : Regular * Call your doctor if: : Fever over 101 F or severe chills,Chest pain or other unexplained symptoms,Tingling or numbness develops,A sudden increase or decrease in weight,You have persistent or worsening symptoms,If you have Heart Failure and you gain 3 pounds within 1 week or your symptoms worsen. (Weigh at home tomorrow morning) * Specific Discharge Teaching Instructions provided: : No * Discharge on Warfarin : No Allergies, Adverse Reactions, Alerts * No Latex Allergy. * No IV Contrast Allergy. * No Known Drug Allergies. * No Known Food Allergies. * No Known Allergies. Medication It is the responsibility of the patient or patient customer service representative teacher to confirm the list of medications with either the patient's personal care provider or the patient's follow-up care provider to ensure the patient has an appropriate list of medications to take at home. Discharge medications New medications* methaDONE 10 mg Tablet, Ordered By: RONDA ANDERSON MD Directions: 1 tablet oral every eight hours for PAIN * amLODIPine 5 mg Tablet, Ordered By: RONDA ANDERSON MD Directions: 1 tablet oral daily for HTN * fentaNYL 25 mcg/hour patch 72 hour, Ordered By: RONDA ANDERSON MD Directions: 1 each transdermal every seventy two hours Additional Instructions: REMOVE OLD PATCH BEFORE APPLYING NEW ONE * cloNIDine HCl 0.1 mg Tablet, Ordered By: RONDA ANDERSON MD Directions: 1 tablet oral three times a day Continued medications* citalopram 20 mg Tablet, Ordered By: RONDA ANDERSON MD Directions: 1 tablet oral daily Additional Instructions: TK 1 T PO D * oxyCODONE 5 mg Tablet, Ordered By: LATOYA NUNES RN Directions: 1 tablet oral every six hours PRN pain * atenolol 25 mg Tablet, Ordered By: LATOYA NUNES RN Directions: 1 tablet oral daily Stopped medications* None
--- OUTSIDE RECORDS SUMMARY | 2017-03-28 13:09 | XMS REPORT | Summary of Care ---
Author Author Alban Basurto M.D. Organization Unknown Address Unknown Phone Unavailable Care Team Providers Care Dairy Manufacturing Technologist Name Role Phone Felisha Basurto M.D. Unavailable Unavailable No Assigned PCP-Pt Confirmed Unavailable Unavailable Unavailable Unavailable Functional Status Name Dates Details Functional status health issues are not documented Status: Name Dates Details Cognitive status health issues are not documented Status: Problems Name Dates Details Pre-op exam (V72.84, Z01.818) Status: Active Medications Name Dates Details Medication [...] R63.5) Status: Resolved Procedures Procedure Dates Details PROTIME PANEL 7000 Ordered: 30-Sep-2016 Immunization Name Dates Details Immunizations not documented Social History Name Dates Details Unknown if ever smoked Vital Signs Date Test Result Details No Known Vitals to report Results Date Description Value Details Results not documented Plan of Care Name Dates Details Planned Observations Planned Goals not documented Planned Encounters Appointment; Provider: Alban Basurto M.D. On 05-Oct-2016 12:00 Interventions Provided Labs/Procedures/Imaging* PROTIME PANEL 7000; To be Done: 30 Sep 2016 Instructions Name Dates Details Instructions not documented Encounters Appointment; Alban Basurto M.D. Encounter Diagnosis: Problem not documented On 30-Sep-2016 08:30
--- OUTSIDE RECORDS SUMMARY | 2017-03-28 13:10 | XMS REPORT | Referral Summary ---
Author Author [facility] Organization [facility] Address Unknown Phone Unavailable Care Team Providers Care Associate Professor Of Library Science Name Role Phone Susan Singleton Primary Care Physician [phone] Encounter VC Date(s): 04/12/15 - 04/12/15 [facility], [address] [place] [address]- Discharge Disposition: 01-Home or Self Care Attending Physician: Gilson Singleton MD Admitting Physician: Gilson Singleton MD Vital Signs Most recent to 1 oldest [Reference Range]: Blood Pressure 220/100 mmHg [90-140/60-90 mmHg] *HI* (04/12/15 1:41 PM) Problem List Condition Effective Dates Status Health Status Informant Benign essential Active hypertension(Confirm ed) Chronic back Active pain(Confirmed) Chronic pain Active disorder(Confirmed) Abdominal Active hernia(Confirmed) Left hip Active pain(Confirmed) History of bilateral Active breast implants(Confirmed) H/O bilateral Active mastectomy(Confirmed ) Chronic knee Active pain(Confirmed) Breast Active cancer(Confirmed) Morbid Active patient obesity(Confirmed) Tobacco Active patient user(Confirmed) Allergies, Adverse Reactions, Alerts No Known Allergies Medications amitriptyline 75 mg oral tablet 75 mg 1 tabs, Oral, Bedtime (once a day), # 30 tabs, 0 Refill(s) Start Date: 04/12/15 Status: Ordered atenolol 25 mg oral tablet 25 mg 1 tabs, Oral, Daily, # 30 tabs, 0 Refill(s), Pharmacy: [facility] [id number], 1 tabs Oral Daily Start Date: 10/22/15 Status: Ordered CeleXA 20 mg oral tablet 20 mg 1 tabs, Oral, Daily, # 30 tabs, 0 Refill(s), Pharmacy: [facility] [id number], 1 tabs Oral Daily Start Date: 10/22/15 Status: Ordered methadone 10 mg oral tablet See Instructions, 3 tabs with bkfst, 2 tabs at noon, 3 tabs at hs Must last 14 Days Fill 10/24/15, # 120 tabs, 0 Refill(s) Start Date: 10/22/15 Status: Ordered Norvasc 5 mg oral tablet 5 mg 1 tabs, Oral, BID, # 60 tabs, 0 Refill(s), Pharmacy: [facility], 1 tabs Oral BID Start Date: 06/14/15 Status: Ordered oxyCODONE 5 mg oral tablet 1-2 tabs, Oral, q6hr, as needed for pain, FILL EVERY OTHER WEDNESDAY Fill 10/24/15 , # 30 tabs, 0 Refill(s), #30 MUST LAST 15 DAYS Start Date: 10/22/15 Status: Ordered Victoza 18 mg/3 mL subcutaneous solution 0.6 mg, SubCutaneous, Daily, # 3 mL, 0 Refill(s), samples given to patient (Rx) Start Date: 06/14/15 Stop Date: 07/14/15 Status: Ordered Results No data available for this section Immunizations No data available for this section Procedures No data available for this section Social History Social History Type Response Smoking Status Current every day smoker Assessment and Plan Extracted from: Title: Ambulatory Patient Education Author: Gilson Singleton MD Date: 10/15 Family Medicine Arterial Hypertension Arterial hypertension (high blood pressure ) is a condition of elevated pressure in your blood vessels. Hypertension over a long period of time is a risk factor for strokes, heart attacks, and heart failure. It is also the leading cause of kidney (renal ) failure. CAUSES In Adults -- Over 90% of all hypertension has no known cause. This is called essential or primary hypertension. In the other 10% of people with hypertension, the increase in blood pressure is caused by another disorder. This is called secondary hypertension . Important causes of secondary hypertension are: Heavy alcohol use. Obstructive sleep apnea. Hyperaldosterosim (Conn's syndrome). Steroid use. Chronic kidney failure. Hyperparathyroidism. Medications. Renal artery stenosis. Pheochromocytoma. Doreen's disease. Coarctation of the aorta. Scleroderma renal crisis. Licorice (in excessive amounts). Drugs (cocaine, methamphetamine). Your caregiver can explain any items above that apply to you. In Children -- Secondary hypertension is more common and should always be considered. -- Few women of childbearing age have high blood pressure. However, up to 10% of them develop hypertension of . Generally, this will not harm the woman. It may be a sign of 3 complications of : preeclampsia, HELLP syndrome, and eclampsia. Follow up and control with medication is necessary. SYMPTOMS This condition normally does not produce any noticeable symptoms. It is usually found during a routine exam. Malignant hypertension is a late problem of high blood pressure. It may have the following symptoms: Headaches. Blurred vision. End-organ damage (this means your kidneys, heart, lungs, and other organs are being damaged). Stressful situations can increase the blood pressure. If a person with normal blood pressure has their blood pressure go up while being seen by their caregiver, this is often termed "white coat hypertension." Its importance is not known. It may be related with eventually developing hypertension or complications of hypertension. Hypertension is often confused with mental tension, stress, and anxiety. DIAGNOSIS The diagnosis is made by 3 separate blood pressure measurements. They are taken at least 1 week apart from each other. If there is organ damage from hypertension, the diagnosis may be made without repeat measurements. Hypertension is usually identified by having blood pressure readings: Above 140/90 mmHg measured in both arms, at 3 separate times, over a couple weeks. Over 130/80 mmHg should be considered a risk factor and may require treatment in patients with diabetes. Blood pressure readings over 120/80 mmHg are called "pre-hypertension" even in non-diabetic patients. To get a true blood pressure measurement, use the following guidelines. Be aware of the factors that can alter blood pressure readings. Take measurements at least 1 hour after caffeine. Take measurements 30 minutes after smoking and without any stress. This is another reason to quit smoking it raises your blood pressure. Use a proper cuff size. Ask your caregiver if you are not sure about your cuff size. Most home blood pressure cuffs are automatic. They will measure systolic and diastolic pressures. The systolic pressure is the pressure reading at the start of sounds. Diastolic pressure is the pressure at which the sounds disappear. If you are elderly, measure pressures in multiple postures. Try sitting, lying or standing. Sit at rest for a minimum of 5 minutes before taking measurements. You should not be on any medications like decongestants. These are found in many cold medications. Record your blood pressure readings and review them with your caregiver. If you have hypertension: Your caregiver may do tests to be sure you do not have secondary hypertension (see "causes" above). Your caregiver may also look for signs of metabolic syndrome. This is also called Syndrome X or Insulin Resistance Syndrome. You may have this syndrome if you have type 2 diabetes, abdominal obesity, and abnormal blood lipids in addition to hypertension. Your caregiver will take your medical and family history and perform a physical exam. Diagnostic tests may include blood tests (for glucose, cholesterol, potassium, and kidney function), a urinalysis, or an EKG. Other tests may also be necessary depending on your condition. PREVENTION There are important lifestyle issues that you can adopt to reduce your chance of developing hypertension: Maintain a normal weight. Limit the amount of salt (sodium ) in your diet. Exercise often. Limit alcohol intake. Get enough potassium in your diet. Discuss specific advice with your caregiver. Follow a DASH diet (dietary approaches to stop hypertension). This diet is rich in fruits, vegetables, and low-fat dairy products, and avoids certain fats. PROGNOSIS Essential hypertension cannot be cured. Lifestyle changes and medical treatment can lower blood pressure and reduce complications. The prognosis of secondary hypertension depends on the underlying cause. Many people whose hypertension is controlled with medicine or lifestyle changes can live a normal, healthy life. RISKS AND COMPLICATIONS While high blood pressure alone is not an illness, it often requires treatment due to its short- and long-term effects on many organs. Hypertension increases your risk for: CVAs or strokes (cerebrovascular accident ). Heart failure due to chronically high blood pressure (hypertensive cardiomyopathy ). Heart attack (myocardial infarction ). Damage to the retina (hypertensive retinopathy ). Kidney failure (hypertensive nephropathy ). Your caregiver can explain list items above that apply to you. Treatment of hypertension can significantly reduce the risk of complications. TREATMENT For overweight patients, weight loss and regular exercise are recommended. Physical fitness lowers blood pressure. Mild hypertension is usually treated with diet and exercise. A diet rich in fruits and vegetables, fat-free dairy products, and foods low in fat and salt (sodium ) can help lower blood pressure. Decreasing salt intake decreases blood pressure in a 1/3 of people. Stop smoking if you are a smoker. The steps above are highly effective in reducing blood pressure. While these actions are easy to suggest, they are difficult to achieve. Most patients with moderate or severe hypertension end up requiring medications to bring their blood pressure down to a normal level. There are several classes of medications for treatment. Blood pressure pills (antihypertensives ) will lower blood pressure by their different actions. Lowering the blood pressure by 10 mmHg may decrease the risk of complications by as much as 25%. The goal of treatment is effective blood pressure control. This will reduce your risk for complications. Your caregiver will help you determine the best treatment for you according to your lifestyle. What is excellent treatment for one person, may not be for you. HOME CARE INSTRUCTIONS Do not smoke. Follow the lifestyle changes outlined in the "Prevention" section. If you are on medications, follow the directions carefully. Blood pressure medications must be taken as prescribed. Skipping doses reduces their benefit. It also puts you at risk for problems. Follow up with your caregiver, as directed. If you are asked to monitor your blood pressure at home, follow the guidelines in the "Diagnosis" section above. SEEK MEDICAL CARE IF: You think you are having medication side effects. You have recurrent headaches or lightheadedness. You have swelling in your ankles. You have trouble with your vision. SEEK IMMEDIATE MEDICAL CARE IF: You have sudden onset of chest pain or pressure, difficulty breathing, or other symptoms of a heart attack. You have a severe headache. You have symptoms of a stroke (such as sudden weakness, difficulty speaking , difficulty walking). MAKE SURE YOU: Understand these instructions. Will watch your condition. Will get help right away if you are not doing well or get worse. Document Released: 10/18/2006 Document Revised: 01/09/2013 Document Reviewed: [facility] Patient Information 2014 [id number] [facility]. No follow up information was provided. Extracted from: Title: Office Visit Note Author: Gilson Singleton MD Date: 04/12/15 Assessment/Plan Abdominal hernia This issue is stable and appropriate refills, lab, and f/u have been discussed. To [facility] Surgery at some point if she remains here. Benign essential hypertension Trial of norvasc 5mg podaily. Call report in 30 days or sooner prn. Breast cancer The patient's issue is nearly or completely resolved. There is no further issues or testing desired by them at this time. Reports this was 20 years ago and it was some type of atypia. Chronic back pain This issue is stable and appropriate refills, lab, and f/u have been discussed. No recent MRI. Contract to honor the narcotic contract. Trial of oxycontin 5mg q6 prn number 30 and mustlast 15 days. Trial of methadone 10mg3 am, 2 noon, 3 pm, 120must last 15 days. Recheck with nurse in 15 days. If no drama for 30 days I will accept her as a patient. Otherwise toER and new PCP for any problems. The patient has family members present who are agreeable with today's plan and have no additional concerns or requests. Son here and agreeable. Chronic pain disorder See above. Edentulous This issue is stable and appropriate refills, lab, and f/u have been discussed. Morbid obesity Diet and exercise when feasible. Tobacco user Smoking Cessatin was discussed. The patient is welcome to f/u for therapy or medication for smoking cessation at any time that they are willing to quit. Orders: amLODIPine, 5 mg 1 tabs, Oral, Daily, # 30 tabs, 0 Refill(s), Pharmacy : [facility], 1 tabs Oral Daily methadone, See Instructions, 3 tabs with bkfst, 2 tabs at noon, 3 tabs at hs 120 tabs must last fourteen days, # 120 tabs, 0 Refill(s) methadone, See Instructions, 3 tabs with bkfst, 2 tabs at noon, 3 tabs at hs 120 tabs must last fifteen days, # 120 tabs, 0 Refill(s) oxyCODONE, 1-2 tabs, Oral, q6hr, as needed for pain, Thirty tabs must last fifteen days., # 30 tabs, 0 Refill(s)
--- OUTSIDE RECORDS SUMMARY | 2017-03-28 13:10 | XMS REPORT | Summary of Care ---
Author Author Alban Basurto M.D. Organization Unknown Address Unknown Phone Unavailable Care Team Providers Care Director Of Promotions Name Role Phone Felisha Basurto M.D. Unavailable Unavailable Cheyenne Singleton Unavailable Unavailable Unavailable Unavailable Functional Status Name Dates Details Functional status health issues are not documented Status: Name Dates Details Cognitive status health issues are not documented Status: Problems Name Dates Details Pre-op exam (V72.84, Z01.818) Status: Active Chronic pancreatitis (577.1, K86.1) Status: Active Intractable abdominal pain (789.00, R10.9) Status: Active Morbid obesity (278.01, E66.01) Status: Active Medications Name Dates Details Medication [...]
--- OUTSIDE RECORDS SUMMARY | 2017-03-28 13:10 | XMS REPORT | Referral Summary ---
Author Author [facility] Organization [facility] Address Unknown Phone Unavailable Care Team Providers Care Psychological Operations Name Role Phone Susan Singleton Primary Care Physician [phone] Encounter VC Date(s): 10/15/15 - 10/15/15 [facility] [address] [place], [place] [address] Discharge Diagnosis: Abdominal mass Discharge Disposition: 01-Home or Self Care Attending Physician: Fish Herrera MD Admitting Physician: Fish Herrera MD Referring Physician: Gilson Singleton MD Vital Signs Most recent to 1 oldest [Reference Range]: Blood Pressure 130/94 mmHg [90-140/60-90 mmHg] (10/15/15 3:30 PM) Problem List Condition Effective Dates Status [...] Daily, # 30 tabs, 0 Refill(s), Pharmacy: [id number], 1 tabs Oral Daily Start Date: 09/23/15 Status: Ordered CeleXA 20 mg oral tablet 20 mg 1 tabs, Oral, Daily, # 30 tabs, 0 Refill(s), Pharmacy: [id number], 1 tabs Oral Daily Start Date: 09/23/15 Status: Ordered methadone 10 mg oral tablet See Instructions, 3 tabs with bkfst, 2 tabs at noon, 3 tabs at hs Must last 14 Days Fill 10/11/15, # 120 tabs, 0 Refill(s) Start Date: 10/09/15 Status: Ordered Norvasc 5 mg oral tablet 5 mg 1 tabs, Oral, BID, # 60 tabs, 0 Refill(s), Pharmacy: [facility], 1 tabs Oral BID Start Date: 06/14/15 Status: Ordered oxyCODONE 5 mg oral tablet 1-2 tabs, Oral, q6hr, as needed for pain, FILL EVERY OTHER WEDNESDAY Fill 10/11/15 , # 30 tabs, 0 Refill(s), #30 MUST LAST 15 DAYS Start Date: 10/09/15 Status: Ordered Victoza 18 mg/3 mL subcutaneous [...] smoker Assessment and Plan Extracted from: Title: Office Visit Note Author: Fish Herrera MD Date: 10/15/15 Assessment/Plan Abdominal mass I do not think she has an abdominal wall hernia. To f urther assess what is going on, I have advised a CT scan of the abdomen and pelvis. She does desire to proceed. We'll go ahead and get this set up and further recommendations will follow. Ordered: Office Visit Level 3 New [id number] Orders: CT Abdomen Pelvis w/ Contrast
--- OUTSIDE RECORDS SUMMARY | 2017-03-28 13:10 | XMS REPORT | Referral Summary ---
Author Author [facility] Organization [facility] Address Unknown Phone Unavailable Care Team Providers Care Electrocardiograph Repairer Name Role Phone Susan Singleton Primary Care Physician [phone] Encounter VC Date(s): 09/23/15 - 09/23/15 [facility], [address] [place] [address]- Discharge Disposition: 01-Home or Self Care Attending Physician: Gilson Singleton MD Admitting Physician: Gilson Singleton MD Vital Signs Most recent to 1 oldest [Reference Range]: Blood Pressure 190/100 mmHg [90-140/60-90 mmHg] *HI* (09/23/15 1:26 PM) Problem List Condition Effective Dates Status [...] Daily, # 30 tabs, 0 Refill(s), Pharmacy: [facility] [id number], 1 tabs Oral Daily Start Date: 09/23/15 Status: Ordered CeleXA 20 mg oral tablet 20 mg 1 tabs, Oral, Daily, # 30 tabs, 0 Refill(s), Pharmacy: [facility] [id number], 1 tabs Oral Daily Start Date: 09/23/15 Status: Ordered methadone 10 mg oral tablet See Instructions, 3 tabs with bkfst, 2 tabs at noon, 3 tabs at hs Must last 15 days, may fill 09/27/15, # 120 tabs, 0 Refill(s) Start Date: 09/23/15 Status: Ordered Norvasc 5 mg oral tablet 5 mg 1 tabs, Oral, BID, # 60 tabs, 0 Refill(s), Pharmacy: [facility], 1 tabs Oral BID Start Date: 06/14/15 Status: Ordered oxyCODONE 5 mg oral tablet 1-2 tabs, Oral, q6hr, as needed for pain, FILL EVERY OTHER WEDNESDAY Fill 09-27-15 , # 30 tabs, 0 Refill(s), #30 MUST LAST 15 DAYS Start Date: 09/23/15 Status: Ordered predniSONE 20 mg oral tablet 20 mg 1 tabs, Oral, Daily, X 5 days, # 5 tabs, 0 Refill(s), Pharmacy: [id number], 1 tabs Oral Daily,x5 days Start Date: 09/23/15 Stop Date: 09/28/15 Status: Ordered Victoza 18 mg/3 mL subcutaneous solution 0.6 mg, SubCutaneous, Daily, # 3 mL, 0 Refill(s), samples given to patient (Rx) Start Date: 06/14/15 Stop Date: 07/14/15 Status: Ordered Results Hematology Most recent to 1 oldest [Reference Range]: WBC [4.8-10.8 11.1 10*3/uL 10*3/uL] *HI* (09/23/15 1:55 PM) RBC [4.00-5.20] 5.18 (09/23/15 1:55 PM) Hgb [12.0-16.0 14.7 gm/dL gm/dL] (09/23/15 1:55 PM) Hct [37.0-47.0 %] 45.5 % (09/23/15 1:55 PM) MCV [82.0-99.0 fL] 87.8 fL (09/23/15 1:55 PM) MCH [27.0-32.0 pg] 28.4 pg (09/23/15 1:55 PM) MCHC [32.0-36.0 32.3 gm/dL gm/dL] (09/23/15 1:55 PM) RDW [11.5-14.5 %] 14.0 % (09/23/15 1:55 PM) Platelet [150-400 282 10*3/uL 10*3/uL] (09/23/15 1:55 PM) MPV [8.8-14.8 fL] 11.3 fL (09/23/15 1:55 PM) Immature 0.2 % Granulocytes (09/23/15 1:55 PM) [0.0-1.0 %] Neutrophils [51-75 77 % %] *HI* (09/23/15 1:55 PM) Lymphocytes [20-46 17 % %] *LOW* (09/23/15 1:55 PM) Monocytes [4-11 %] 5 % (09/23/15 1:55 PM) Eosinophils [0-4 %] 1 % (09/23/15 1:55 PM) Basophils [0-2 %] 0 % (09/23/15 1:55 PM) Neutro Absolute 8.58 10*3 [1.90-7.00 10*3] *HI* (09/23/15 1:55 PM) Lymph Absolute 1.85 10*3 [0.80-3.30 10*3] (09/23/15 1:55 PM) [place] Absolute 0.54 10*3 [0.30-1.00 10*3] (09/23/15 1:55 PM) Eos Absolute 0.07 10*3 [0.00-0.50 10*3] (09/23/15 1:55 PM) Baso Absolute 0.03 10*3 [0.00-0.20 10*3] (09/23/15 1:55 PM) Chemistry Most recent to 1 oldest [Reference Range]: Sodium Lvl [135-144 137 mEq/L mEq/L] (09/23/15 1:55 PM) Potassium Lvl 3.9 mEq/L [3.5-5.2 mEq/L] (09/23/15 1:55 PM) Chloride [99-111 102 mEq/L mEq/L] (09/23/15 1:55 PM) CO2 [22-31 mEq/L] 24 mEq/L (09/23/15 1:55 PM) AGAP [3-20] 11 (09/23/15 1:55 PM) BUN [10-20 mg/dL] 7 mg/dL *LOW* (09/23/15 1:55 PM) Glucose Lvl [70-99 130 mg/dL mg/dL] *HI* (09/23/15 1:55 PM) Creatinine Lvl 1.05 mg/dL [0.57-1.11 mg/dL] (09/23/15 1:55 PM) eGFR [>60 mL/min] 55 mL/min 1 *ABN* (09/23/15 1:55 PM) Calcium Lvl 10.0 mg/dL [8.9-10.5 mg/dL] (09/23/15 1:55 PM) Albumin Lvl [3.5-5.0 4.1 gm/dL gm/dL] (09/23/15 1:55 PM) Total Protein 7.9 gm/dL [6.4-8.3 gm/dL] (09/23/15 1:55 PM) Globulin [1.8-4.0 3.8 gm/dL gm/dL] (09/23/15 1:55 PM) ALT [0-55 U/L] 17 U/L (09/23/15 1:55 PM) AST [5-34 U/L] 18 U/L (09/23/15 1:55 PM) Alk Phos [40-150 98 U/L U/L] (09/23/15 1:55 PM) Bili Total [0.2-1.2 0.5 mg/dL mg/dL] (09/23/15 1:55 PM) Chol [0-199 mg/dL] 195 mg/dL (09/23/15 1:55 PM) Trig [0-149 mg/dL] 129 mg/dL (09/23/15 1:55 PM) HDL [40-84 mg/dL] 55 mg/dL (09/23/15 1:55 PM) LDL [0-130 mg/dL] 114 mg/dL (09/23/15 1:55 PM) VLDL Cholesterol 26 mg/dL [0-28 mg/dL] (09/23/15 1:55 PM) Cardiac Risk 3.5 [0.0-5.0] (09/23/15 1:55 PM) TSH with Reflex Free 0.71 T4 [0.35-4.94] (09/23/15 1:55 PM) Hgb A1c [4.1-5.6 %] 5.6 % (09/23/15 1:55 PM) eAvg Glucose 114.0 mg/dL (09/23/15 1:55 PM) 1Result Comment: Multiply eGFR results by 1.21 for race. Immunizations No data available for this section Procedures No data available for this section Social History Social History Type Response Smoking Status Current every day smoker Assessment and Plan Extracted from: Title: Ambulatory Patient Education Author: Gilson Singleton MD Date: Family Medicine Arthralgia Your caregiver has diagnosed you as suffering from an arthralgia. Arthralgia means there is pain in a joint. This can come from many reasons including: Bruising the joint which causes soreness (inflammation) in the joint. Wear and tear on the joints which occur as we grow older (osteoarthritis). Overusing the joint. Various forms of arthritis. Infections of the joint. Regardless of the cause of pain in your joint, most of these different pains respond to anti-inflammatory drugs and rest. The exception to this is when a joint is infected, and these cases are treated with antibiotics, if it is a bacterial infection. HOME CARE INSTRUCTIONS Rest the injured area for as long as directed by your caregiver. Then slowly start using the joint as directed by your caregiver and as the pain allows. Crutches as directed may be useful if the ankles, knees or hips are involved. If the knee was splinted or casted, continue use and care as directed. If an stretchy or elastic wrapping bandage has been applied today, it should be removed and re-applied every 3 to 4 hours. It should not be applied tightly, but firmly enough to keep swelling down. Watch toes and feet for swelling, bluish discoloration, coldness, numbness or excessive pain. If any of these problems (symptoms) occur, remove the gerald bandage and re-apply more loosely. If these symptoms persist, contact your caregiver or return to this location. For the first 24 hours, keep the injured extremity elevated on pillows while lying down. Apply ice for 15-20 minutes to the sore joint every couple hours while awake for the first half day. Then 03-04 times per day for the first 48 hours. Put the ice in a plastic bag and place a towel between the bag of ice and your skin. Wear any splinting, casting, elastic bandage applications, or slings as instructed. Only take [id number]-[id number] or prescription medicines for pain, discomfort, or fever as directed by your caregiver. Do not use aspirin immediately after the injury unless instructed by your physician. Aspirin can cause increased bleeding and bruising of the tissues. If you were given crutches, continue to use them as instructed and do not resume weight bearing on the sore joint until instructed. Persistent pain and inability to use the sore joint as directed for more than 2 to 3 days are warning signs indicating that you should see a caregiver for a follow-up visit as soon as possible. Initially, a hairline fracture (break in bone) may not be evident on X-rays. Persistent pain and swelling indicate that further evaluation, non-weight bearing or use of the joint (use of crutches or slings as instructed), or further X-rays are indicated. X-rays may sometimes not show a small fracture until a week or 10 days later. Make a follow-up appointment with your own caregiver or one to whom we have referred you. A radiologist (specialist in reading X-rays) may read your X-rays. Make sure you know how you are to obtain your X-ray results. Do not assume everything is normal if you do not hear from us. SEEK MEDICAL CARE IF: Bruising, swelling, or pain increases. SEEK IMMEDIATE MEDICAL CARE IF: Your fingers or toes are numb or blue. The pain is not responding to medications and continues to stay the same or get worse. The pain in your joint becomes severe. You develop a fever over 102 F (38.9 C). It becomes impossible to move or use the joint. MAKE SURE YOU: Understand these instructions. Will watch your condition. Will get help right away if you are not doing well or get worse. Document Released: 10/18/2006 Document Revised: 01/09/2013 Document Reviewed: [facility] Patient Information 2015 [employer] [facility]. This information is not intended to replace advice given to you by your health care provider. Make sure you discuss any questions you have with your health care provider. No follow up information was provided. Extracted from: Title: Office Visit Note Author: Gilson Singleton MD Date: 09/23/15 Assessment/Plan Abdominal hernia To Dr. Kimani Herrera for evaluation. Large knot/hernia/lipoma on right mid abdomen. Acute URI Zpack and prednisone 20mg po daily for five days was given. Benign essential hypertension Please make the medication adjustments we discussed. Please notify the office for any difficulties or concerns. Add atenolol 25mg po daily. Monitor bp closely. Lab pending. Ordered: CBC w/ Differential Comprehensive Metabolic Panel Lipid Panel Urinalysis with Culture if Indicated Chronic back pain This issue was reviewed, appears stable, and current therapy continued except as mentioned. Appropriate lab was reviewed from the most recent appropriate entry and lab was ordered if needed in the cpoe/nursing orders, and follow up recommended generally in 90 days and no later then six months. Narcotics refilled. Needs an appt in November 2015 to refill and likely cut down. Chronic knee pain This issue was reviewed, appears stable, and current therapy continued except as mentioned. Appropriate lab was reviewed from the most recent appropriate entry and lab was ordered if needed in the cpoe/nursing orders, and follow up recommended generally in 90 days and no later then six months. Consult when willing. No tramadol due tohigh dose narcotics already. JEANNIE (generalized anxiety disorder) Trial of celexa 20mg po daily.ToPsych/ PV/therapy if needed. Monitor closely. Lab pending. Morbid obesity Diet and exercise as tolerated and feasible. Consider medication when interested. Consider restarting victoza when affordable. 45 minutes were utilized in care and coordination for this patient. Greater then 50% of the time was used for counseling and/or coordination of the patients care. Total timespent in all these issues was 45minutes of individual review andcoordination. Tobacco user Smoking Cessation was discussed. The patient is welcome to f/u for therapy or medication for smoking cessation at any time that they are willing to quit. Orders: methadone, See Instructions, 3 tabs with bkfst, 2 tabs at noon, 3 tabs at hs Must last 15 days, may fill 09/27/15, # 120 tabs, 0 Refill(s) oxyCODONE, 1-2 tabs, Oral, q6hr, as needed for pain, FILL EVERY OTHER WEDNESDAY Fill 09-27-15, # 30 tabs, 0 Refill(s), #30 MUST LAST 15 DAYS Hemoglobin A1c TSH with Reflex Free T4
--- OUTSIDE RECORDS SUMMARY | 2017-03-28 13:10 | XMS REPORT | Continuity of Care Document ---
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, NEC 09/21/2016 SUSAN ORDOÑEZ F1010 Alcohol abuse, uncomplicated 09/21/2016 SUSAN ORDOÑEZ F1120 Opioid dependence, uncomplicated 09/21/2016 SUSAN ORDOÑEZ G894 Chronic pain syndrome 09/21/2016 SUSAN ORDOÑEZ K8520 Alcohol induced acute pancreatitis without necrosis or infct 09/21/2016 SUSAN ORDOÑEZ Z6841 Body mass index (BMI) 40.0-44.9, adult 09/22/2016 SUSAN ORDOÑEZ E6601 Morbid (severe) obesity due to excess calories 09/22/2016 SUSAN ORDOÑEZ E876 Hypokalemia 09/22/2016 SUSAN ORDOÑEZ E8809 [facility] disorders of plasma-protein metabolism, NEC 09/22/2016 SUSAN ORDOÑEZ F1010 Alcohol abuse, uncomplicated 09/22/2016 SUSAN ORDOÑEZ F1120 Opioid dependence, uncomplicated 09/22/2016 SUSAN ORDOÑEZ G894 Chronic pain syndrome 09/22/2016 SUSAN ORDOÑEZ I10 Essential (primary) hypertension 09/22/2016 SUSAN ORDOÑEZ K769 Liver disease, unspecified 09/22/2016 SUSAN ORDOÑEZ K8520 Alcohol induced acute pancreatitis without necrosis or infct 09/22/2016 SUSAN ORDOÑEZ M5416 Radiculopathy, lumbar region 09/22/2016 SUSAN ORDOÑEZ Z23 Encounter for immunization 09/22/2016 SUSAN ORDOÑEZ Z6841 Body mass index (BMI) 40.0-44.9, adult 09/22/2016 SUSAN ORDOÑEZ Z853 Personal history of malignant neoplasm of breast 09/22/2016 SUSAN ORDOÑEZ Z8542 Personal history of malignant neoplasm of oth prt uterus 09/22/2016 SUSAN ORDOÑEZ [id number] Personal history of nicotine dependence Procedures Code Description Performed By Performed On [id number] 09/07/2016 Results Test Result Range COMPREHENSIVE METABOLIC PANEL - 09/07/16 00:05 TCO2 27.0 mmol/L 21.0-32.0 *ANION GAP 10.0 mmol/L 8.0-16.0 CALCIUM 9.1 8.5-10.1 ALBUMIN 3.1 3.4-5.0 *GLOBULIN 4.6 2.3-3.5 *A/G RATIO 0.7 1.5-2.2 LIPASE - 09/07/16 00:05 LIPASE 1233 U/L 73-393 GFR ESTIMATION - 09/07/16 00:05 *GFR EST NON AFR ICELANDIC 53 mL/min NRG *GRFA EST AFR AMER 61 mL/min NRG CBC WITH PLATELET AND DIFFERENTIAL - 09/07/16 00:05 SEGS 77.7 % NRG *BASOPHILS 0.9 % NRG *EOSINOPHILS 0.6 % NRG AUTOMATED DIFF PERFORMED NRG *LYMPHOCYTES 17.0 % NRG *MONOCYTES 3.8 % NRG *ABSOLUTE BASOPHILS 0.10 10*3/uL 0.00- 0.20 *ABSOLUTE EOSINOPHILS 0.00 10*3/uL 0.00- 0.50 *ABSOLUTE LYMPHOCYTES 1.40 10*3/uL 1.00- 3.00 *ABSOLUTE MONOCYTES 0.30 10*3/uL 0.30- 1.00 *ABSOLUTE NEUTROPHILS 6.40 10*3/uL 1.80- 7.80 MPV 9.3 fL 7.4-10.4 PLATELETS 184 10*3/uL 159-386 WBC 8.3 10*3/uL 3.6-11.2 RBC 4.44 3.63-4.92 HEMOGLOBIN 14.7 11.0-14.3 HEMATOCRIT 43.0 % 31.2-41.9 MCV 96.7 fL 79.0-98.0 MCH 33.0 pg 27.0-33.0 MCHC 34.1 32.0-36.0 RDW 14.0 % 12.3-17.0 RDWSD 47.3 37.1-47.8 CBC WITH PLATELET AND DIFFERENTIAL - 09/07/16 05:32 SEGS 87.1 % NRG *BASOPHILS 1.0 % NRG *EOSINOPHILS 0.0 % NRG AUTOMATED DIFF PERFORMED NRG *LYMPHOCYTES 7.8 % NRG *MONOCYTES 4.1 % NRG *ABSOLUTE BASOPHILS 0.10 10*3/uL 0.00- 0.20 *ABSOLUTE EOSINOPHILS 0.00 10*3/uL 0.00- 0.50 *ABSOLUTE LYMPHOCYTES 0.80 10*3/uL 1.00- 3.00 *ABSOLUTE MONOCYTES 0.40 10*3/uL 0.30- 1.00 *ABSOLUTE NEUTROPHILS 8.90 10*3/uL 1.80- 7.80 MPV 9.2 fL 7.4-10.4 PLATELETS 177 10*3/uL 159-386 WBC 10.2 10*3/uL 3.6-11.2 RBC 4.25 3.63-4.92 HEMOGLOBIN 13.8 11.0-14.3 HEMATOCRIT 41.1 % 31.2-41.9 MCV 96.6 fL 79.0-98.0 MCH 32.5 pg 27.0-33.0 MCHC 33.6 32.0-36.0 RDW 14.0 % 12.3-17.0 RDWSD 47.7 37.1-47.8 LIPASE - 09/07/16 05:32 LIPASE 1614 U/L 73-393 COMPREHENSIVE METABOLIC PANEL - 09/07/16 05:32 SODIUM 140 mmol/L 136-145 POTASSIUM 4.0 mmol/L 3.5-5.1 CHLORIDE 104 mmol/L 98-107 TCO2 28.6 mmol/L 21.0-32.0 *ANION GAP 7.4 mmol/L 8.0-16.0 BUN 9 7-18 CREATININE 1.23 0.55-1.02 *BUN/CREATININE RATIO 7.3 9.1-17.0 GLUCOSE 129 65-99 CALCIUM 8.8 8.5-10.1 BILIFUBIN TOTAL 0.60 0.20-1.00 TOTAL PROTEIN 7.1 6.4-8.2 ALBUMIN 2.9 3.4-5.0 *GLOBULIN 4.2 2.3-3.5 *A/G RATIO 0.7 1.5-2.2 ALK PHOS 104 U/L 46-116 ALT (SGPT) 46 U/L 16-63 AST (SGOT) 68 U/L 15-37 LIPID PANEL W/O REFLEX - 09/07/16 05:32 TRIGLYCERIDES 52 0-149 CHOLESTEROL 199 50-199 HDL CHOLESTEROL 84 40-60 LDL (CALCULATED CHOL 105 0-99 ALCOHOL - 09/07/16 09:36 ALCOHOL <0.003 NRG PROTHROMBIN TIME - 09/08/16 07:36 *INR 1.1 0.9-1.1 *PROTHROMBIN TIME 11.5 s 9.4-11.5 COMPREHENSIVE METABOLIC PANEL - 09/08/16 07:36 SODIUM 137 mmol/L 136-145 POTASSIUM 4.2 mmol/L 3.5-5.1 CHLORIDE 103 mmol/L 98-107 TCO2 24.0 mmol/L 21.0-32.0 *ANION GAP 10.0 mmol/L 8.0-16.0 BUN 8 7-18 CREATININE 1.03 0.55-1.02 *BUN/CREATININE RATIO 7.8 9.1-17.0 GLUCOSE 82 65-99 CALCIUM 8.7 8.5-10.1 BILIFUBIN TOTAL 1.00 0.20-1.00 TOTAL PROTEIN 7.2 6.4-8.2 ALBUMIN 2.7 3.4-5.0 *GLOBULIN 4.5 2.3-3.5 *A/G RATIO 0.6 1.5-2.2 ALK PHOS 96 U/L 46-116 ALT (SGPT) 32 U/L 16-63 AST (SGOT) 37 U/L 15-37 GFR ESTIMATION - 09/08/16 07:36 *GFR EST NON AFR ICELANDIC 61 mL/min NRG *GRFA EST AFR AMER 71 mL/min NRG CBC WITH PLATELET AND DIFFERENTIAL - 09/08/16 07:36 SEGS 92.0 % NRG *BASOPHILS 0.0 % NRG *EOSINOPHILS 0.0 % NRG *LYMPHOCYTES 2.0 % NRG *MONOCYTES 1.0 % NRG *ABSOLUTE BASOPHILS 0.00 10*3/uL 0.00- 0.20 *ABSOLUTE EOSINOPHILS 0.00 10*3/uL 0.00- 0.50 *ABSOLUTE LYMPHOCYTES 0.42 10*3/uL 1.00- 3.00 *ABSOLUTE MONOCYTES 0.21 10*3/uL 0.30- 1.00 *ABSOLUTE NEUTROPHILS 20.18 10*3/uL 1.80- 7.80 MPV 9.8 fL 7.4-10.4 PLATELETS 148 10*3/uL 159-386 WBC 20.8 10*3/uL 3.6-11.2 RBC 4.74 3.63-4.92 HEMOGLOBIN 14.9 11.0-14.3 HEMATOCRIT 45.5 % 31.2-41.9 MCV 95.9 fL 79.0-98.0 MCH 31.5 pg 27.0-33.0 MCHC 32.8 32.0-36.0 RDW 13.8 % 12.3-17.0 MANUAL DIFFERENTIAL - 09/08/16 07:36 *BANDS 5.0 % NRG *MANUAL DIFF PERFORMED NRG PLATELET SLIDE REVIEW - 09/08/16 07:36 *PLATELET SLIDE REVIEW DECREASED ADEQUATE URINALYSIS, AUTOMATED WITH MICROSCOPY - 09/08/16 08:50 *URINE APPEARANCE SL CLOUDY CLEAR *URINE BILIRUBIN NEGATIVE NEGATIVE *URINE BLOOD TRACE-INTACT NEGATIVE *URINE GLUCOSE NEGATIVE NEGATIVE *URINE KETONES TRACE NEGATIVE *URINE LEUKOCYTES NEGATIVE NEGATIVE *URINE NITRITES NEGATIVE NEGATIVE URINE PH 7.0 5.0-8.0 *URINE PROTEIN NEGATIVE NEGATIVE URINE SPECIFIC GRAVITY 1.015 <=1.005->= 1.030 *URINE UROBILINOGEN 1.0 0.2-1.0 *URINE COLOR DK YELLOW STRAW/YELL/DK YELL URINE MICROSCOPIC - 09/08/16 08:50 WBC 1-5 /[HPF] 0-5 RBC 1-5 /[HPF] 0-1 MUCOUS THREADS FEW /[LPF] NEGATIVE MICROSCOPIC EXAM PERFORMED PERFORMED NRG SQUAMOUS EP. CELLS FEW /[LPF] NEG-FEW CULTURE URINE - 09/08/16 10:56 CULTURE URINE 10,000 cfu/ml - 50,000 cfu/ml~3 or more gram positive colony types~Suggestive of colonization or contamination NRG LIPASE - 09/09/16 06:24 LIPASE 1708 U/L 73-393 LDH - 09/09/16 06:24 LDH 316 U/L 81-234 ARTERIAL BLOOD GAS - 09/09/16 09:55 *PATIENT ATMOSPHERE ROOM AIR NRG *SPECIMEN SITE ARTERIAL NRG PROTHROMBIN TIME - 09/10/16 06:45 *INR 1.2 0.9-1.1 *PROTHROMBIN TIME 12.0 s 9.4-11.5 CBC WITH PLATELET AND DIFFERENTIAL - 09/10/16 06:45 SEGS 92.0 % NRG *BASOPHILS 0.0 % NRG *EOSINOPHILS 0.0 % NRG *LYMPHOCYTES 1.0 % NRG *MONOCYTES 1.0 % NRG *ABSOLUTE BASOPHILS 0.00 10*3/uL 0.00- 0.20 *ABSOLUTE EOSINOPHILS 0.00 10*3/uL 0.00- 0.50 *ABSOLUTE LYMPHOCYTES 0.63 10*3/uL 1.00- 3.00 *ABSOLUTE MONOCYTES 0.21 10*3/uL 0.30- 1.00 *ABSOLUTE NEUTROPHILS 20.06 10*3/uL 1.80- 7.80 COMPREHENSIVE METABOLIC PANEL - 09/10/16 06:45 SODIUM 134 mmol/L 136-145 POTASSIUM 3.9 mmol/L 3.5-5.1 CHLORIDE 101 mmol/L 98-107 TCO2 25.1 mmol/L 21.0-32.0 *ANION GAP 7.9 mmol/L 8.0-16.0 BUN 9 7-18 CREATININE 1.06 0.55-1.02 *BUN/CREATININE RATIO 8.5 9.1-17.0 GLUCOSE 83 65-99 CALCIUM 8.2 8.5-10.1 BILIFUBIN TOTAL 0.90 0.20-1.00 TOTAL PROTEIN 6.4 6.4-8.2 ALBUMIN 2.0 3.4-5.0 *GLOBULIN 4.4 2.3-3.5 *A/G RATIO 0.5 1.5-2.2 ALK PHOS 89 U/L 46-116 ALT (SGPT) 19 U/L 16-63 AST (SGOT) 23 U/L 15-37 GFR ESTIMATION - 09/10/16 06:45 *GFR EST NON AFR ICELANDIC 59 mL/min NRG *GRFA EST AFR AMER 69 mL/min NRG MANUAL DIFFERENTIAL - 09/10/16 06:45 WBC VACUOLES 1+ NRG *POLYCHROMASIA 1+ NRG ANISOCYTOSIS 3+ NRG *REACTIVE LYMPHOCYTES 2.0 % NRG *BANDS 4.0 % NRG *MANUAL DIFF PERFORMED NRG CBC WITH PLATELET AND DIFFERENTIAL - 09/11/16 05:40 SEGS 79.0 % NRG *BASOPHILS 0.0 % NRG *EOSINOPHILS 1.0 % NRG *LYMPHOCYTES 6.0 % NRG *MONOCYTES 2.0 % NRG *ABSOLUTE BASOPHILS 0.00 10*3/uL 0.00- 0.20 *ABSOLUTE EOSINOPHILS 0.17 10*3/uL 0.00- 0.50 *ABSOLUTE LYMPHOCYTES 1.02 10*3/uL 1.00- 3.00 *ABSOLUTE MONOCYTES 0.34 10*3/uL 0.30- 1.00 *ABSOLUTE NEUTROPHILS 15.47 10*3/uL 1.80- 7.80 PROTHROMBIN TIME - 09/11/16 05:40 *INR 1.2 0.9-1.1 *PROTHROMBIN TIME 12.0 s 9.4-11.5 MANUAL DIFFERENTIAL - 09/11/16 05:40 *BANDS 12.0 % NRG *MANUAL DIFF PERFORMED NRG COMPREHENSIVE METABOLIC PANEL - 09/11/16 05:40 SODIUM 134 mmol/L 136-145 POTASSIUM 3.4 mmol/L 3.5-5.1 CHLORIDE 101 mmol/L 98-107 TCO2 25.5 mmol/L 21.0-32.0 *ANION GAP 7.5 mmol/L 8.0-16.0 BUN 11 7-18 CREATININE 1.20 0.55-1.02 *BUN/CREATININE RATIO 9.2 9.1-17.0 GLUCOSE 83 65-99 CALCIUM 8.2 8.5-10.1 BILIFUBIN TOTAL 0.80 0.20-1.00 TOTAL PROTEIN 6.2 6.4-8.2 ALBUMIN 1.8 3.4-5.0 *GLOBULIN 4.4 2.3-3.5 *A/G RATIO 0.4 1.5-2.2 ALK PHOS 93 U/L 46-116 ALT (SGPT) 19 U/L 16-63 AST (SGOT) 25 U/L 15-37 LIPASE - 09/11/16 05:40 LIPASE 129 U/L 73-393 GFR ESTIMATION - 09/11/16 05:40 *GFR EST NON AFR ICELANDIC 51 mL/min NRG *GRFA EST AFR AMER 59 mL/min NRG CBC WITH PLATELET AND DIFFERENTIAL - 09/12/16 05:53 SEGS 71.0 % NRG *BASOPHILS 0.0 % NRG *EOSINOPHILS 2.0 % NRG *LYMPHOCYTES 4.0 % NRG *MONOCYTES 6.0 % NRG *ABSOLUTE BASOPHILS 0.00 10*3/uL 0.00- 0.20 *ABSOLUTE EOSINOPHILS 0.28 10*3/uL 0.00- 0.50 *ABSOLUTE LYMPHOCYTES 0.56 10*3/uL 1.00- 3.00 *ABSOLUTE MONOCYTES 0.85 10*3/uL 0.30- 1.00 *ABSOLUTE NEUTROPHILS 12.41 10*3/uL 1.80- 7.80 PROTHROMBIN TIME - 09/12/16 05:53 *INR 1.2 0.9-1.1 *PROTHROMBIN TIME 12.0 s 9.4-11.5 COMPREHENSIVE METABOLIC PANEL - 09/12/16 05:53 SODIUM 133 mmol/L 136-145 POTASSIUM 3.1 mmol/L 3.5-5.1 CHLORIDE 101 mmol/L 98-107 TCO2 24.8 mmol/L 21.0-32.0 *ANION GAP 7.2 mmol/L 8.0-16.0 BUN 10 7-18 CREATININE 1.12 0.55-1.02 *BUN/CREATININE RATIO 8.9 9.1-17.0 GLUCOSE 82 65-99 CALCIUM 8.5 8.5-10.1 BILIFUBIN TOTAL 0.80 0.20-1.00 TOTAL PROTEIN 6.2 6.4-8.2 ALBUMIN 1.7 3.4-5.0 *GLOBULIN 4.5 2.3-3.5 *A/G RATIO 0.4 1.5-2.2 ALK PHOS 106 U/L 46-116 ALT (SGPT) 18 U/L 16-63 AST (SGOT) 28 U/L 15-37 GFR ESTIMATION - 09/12/16 05:53 *GFR EST NON AFR ICELANDIC 55 mL/min NRG *GRFA EST AFR AMER 64 mL/min NRG MANUAL DIFFERENTIAL - 09/12/16 05:53 WBC VACUOLES 2+ NRG *TOXIC GRANULATION 1+ NRG *BANDS 15.0 % NRG *MANUAL DIFF PERFORMED NRG METAMYELOCYTES 2.0 % NRG PROTHROMBIN TIME - 09/13/16 05:47 *INR 1.2 0.9-1.1 *PROTHROMBIN TIME 12.4 s 9.4-11.5 RENAL FUNCTION PANEL - 09/13/16 05:47 ALBUMIN 1.7 3.4-5.0 PHOSPHORUS 3.3 2.6-4.7 GFR ESTIMATION - 09/13/16 05:47 *GFR EST NON AFR ICELANDIC 59 mL/min NRG *GRFA EST AFR AMER 69 mL/min NRG LIPASE - 09/13/16 05:47 LIPASE 110 U/L 73-393 PROTHROMBIN TIME - 11/14/16 05:59 *INR 1.2 0.9-1.1 *PROTHROMBIN TIME 12.0 s 9.4-11.5 Encounters ACCT No. Visit Date/Time Discharge Status Pt. Type Provider Facility Loc./Unit Complaint [id number] 09/06/2016 23:19:00 2015 14:39:42 DIS Outpatient UNASSIGNED DOCTOR, DOCTOR ABDOMINAL PAIN [id number] 09/07/2016 01:43:00 2015 18:06:12 DIS Inpatient SUSAN ORDOÑEZ <PV2.3.2>Alcohol induced acute pancreatitis without necrosis or infct</PV2.3.2 ><PV2.3.2>ACUTE PANCREATITIS</PV2.3.2><PV2.3.2>Alcohol induced acute pancreatitis without necrosis or infct</PV2.3.2><PV2.3.2>Opioid dependence, uncomplicated</PV2.3.2><PV2.3.2>Body mass index (BMI) 40.0-44.9, adult</PV2.3.2> <PV2.3.2>Chronic pain syndrome</PV2.3.2><PV2.3.2>Alcohol abuse, uncomplicated</ PV2.3.2><PV2.3.2>Oth disorders of plasma-protein metabolism, NEC</PV2.3.2>< PV2.3.2>Liver disease, unspecified</PV2.3.2><PV2.3.2>Radiculopathy, lumbar region</PV2.3.2><PV2.3.2>Morbid (severe) obesity due to excess calories</PV2.3.2 ><PV2.3.2>Personal history of malignant neoplasm of breast</PV2.3.2><PV2.3.2> Personal history of malignant neoplasm of oth prt uterus</PV2.3.2><PV2.3.2> Personal history of nicotine dependence</PV2.3.2><PV2.3.2>Essential (primary) hypertension</PV2.3.2><PV2.3.2>Encounter for immunization</PV2.3.2><PV2.3.2> Hypokalemia</PV2.3.2>
--- OUTSIDE RECORDS SUMMARY | 2017-03-28 13:10 | XMS REPORT ---
Author Author [facility] Organization Unknown Address Unknown Phone Unavailable Care Team Providers Care [place]er Floor Name Role Phone UNASSIGNED DOCTOR , DOCTOR PP [phone] Reason For Visit Chief Complaint ABDOMINAL PAIN Social History Functional Status Vital Signs Results Problems Encounter Diagnosis No relevant problems exist. Additional Problems * Acute Pain Comment:Problem resolved by [facility] upon Discharge, Status :Resolved. * Acute Pancreatitis Comment:Problem resolved by [facility] upon Discharge , Status:Resolved. * Chronic Pain Comment:Problem resolved by [facility] upon Discharge, Status:Resolved. * Disturbance in Sleep Behavior Comment:Problem resolved by [facility] upon Discharge, Status:Resolved. * Fall Risk Comment:Problem resolved by [facility] upon Discharge, Status: Resolved. * Hypertensive Disorder Comment:Problem resolved by [facility] upon Discharge, Status:Resolved. * Mobility Impairment Comment:Problem resolved by [facility] upon Discharge, Status:Resolved. * Morbid Obesity Comment:Problem resolved by [facility] upon Discharge, Status:Resolved. * Nutritional Deficiency Comment:Problem resolved by [facility] upon Discharge, Status:Resolved. Encounters Encounter Diagnosis No relevant problems exist. Plan of Care Procedures * Completed Procedure Code: [id number] Procedure Name: not valued, on 09/07/2016 12 :00 AM Immunizations * Influenza, seasonal, injectable Not Administered 09/14/2016 3:23 PM; Patient decision Hospital Course Hospital Discharge Instructions Allergies, Adverse Reactions, Alerts * Latex Allergy has not been assessed. * IV Contrast Allergy has not been assessed. * No Known Drug Allergies. * No Known Food Allergies. * No Known Allergies. Medication Medication reconciliation has not been performed.
--- OUTSIDE RECORDS SUMMARY | 2017-03-28 13:10 | XMS REPORT | Referral Summary ---
Author Author [facility] Organization [facility] Address Unknown Phone Unavailable Care Team Providers Care Health Information Tech Name Role Phone Susan Singleton Primary Care Physician [phone] Encounter VC Date(s): 06/14/15 - 06/14/15 [facility], [address] [place] [address]- Discharge Disposition: 01-Home or Self Care Attending Physician: Gilson Singleton MD Admitting Physician: Gilson Singleton MD Vital Signs Most recent to 1 oldest [Reference Range]: Blood Pressure 160/82 mmHg [90-140/60-90 mmHg] *HI* (06/14/15 2:35 PM) Problem List Condition Effective Dates Status [...] Daily, # 30 tabs, 0 Refill(s), Pharmacy: [id number], 1 tabs Oral Daily Start Date: 11/20/15 Status: Ordered CeleXA 20 mg oral tablet 20 mg 1 tabs, Oral, Daily, # 30 tabs, 0 Refill(s), Pharmacy: [facility] [id number], 1 tabs Oral Daily Start Date: 12/04/15 Status: Ordered methadone 10 mg oral tablet See Instructions, 3 tabs with bkfst, 2 tabs at noon, 3 tabs at hs Must last 14 Days Fill 12/18/15, # 120 tabs, 0 Refill(s) Start Date: 12/18/15 Status: Ordered Norvasc 5 mg oral tablet 5 mg 1 tabs, Oral, BID, # 60 tabs, 0 Refill(s), Pharmacy: [facility], 1 tabs Oral BID Start Date: 06/14/15 Status: Ordered oxyCODONE 5 mg oral tablet 1-2 tabs, Oral, q6hr, as needed for pain, FILL EVERY OTHER WEDNESDAY Fill 12/20/15 , # 30 tabs, 0 Refill(s), #30 MUST LAST 15 DAYS Start Date: 12/18/15 Status: Ordered Victoza 18 mg/3 mL subcutaneous [...] applications, or slings as instructed. Only take [id number] or prescription medicines for pain, discomfort, or [...] Released: 10/18/2006 Document Revised: 01/09/2013 Document Reviewed: [employer] Patient Information 2015 [employer]. This information is not intended to replace advice given to you by your health care provider. Make sure you discuss any questions you have with your health care provider. No follow up information was provided. Extracted from: Title: Office Visit Note Author: Gilson Singleton MD Date: 06/14/15 Assessment/Plan Benign essential hypertension Please make the medication adjustments we discussed. Please notify the office for any difficulties or concerns. Norvasc to 5mg po bid. Monitor and recheck in 60 days or sooner prn. Breast cancer This issue is stable and appropriate refills, lab, and f/u have been discussed. Chronic back pain This issue is stable and appropriate refills, lab, and f/u have been discussed. Methadone to 2, 2 ,3 tablets in the future. Chronic pain disorder See above. Left hip pain Xray pending. To [facility] Rheumatology for injection when available and willing. Morbid obesity Trial ofvictoza .6ug sq daily. Side effectsdiscussed. Samples and nursing directions given as a demo and courtesy.
--- OUTSIDE RECORDS SUMMARY | 2017-03-28 13:10 | XMS REPORT | Continuity of Care Document ---
Author Author [facility] Organization [facility] Address Unknown Phone Unavailable Support Name Relationship Address Phone MARIA ESTHER GARCIA DO Caregiver [facility] [address] [place], [place] [id number] CRISTA ASTORGA MD Caregiver [address] [place] [address] [address] CARTY [place], [place] [phone] MOLLY LONG Next Of Kin [address] [place], [place] [id number] Insurance Providers Payer Name Policy Number Subscriber Name Relationship Medicare [id number] Becki Long 20 Self Medicaid [id number] Becki Long 20 Self Advance Directives Directive Response Recorded Date/Time Advanced Directives Type None 01/18/15 7:30am Problems Medical Problems Problem Onset Date Status Influenza Unknown Active Vaginal bleeding Unknown Active Medications Medication Dose Route Sig Days/Qty Instructions Order Date Discontinued Date Status Amitriptyline Hcl 225 Mg PO BEDTIME 09/29/09 Active Methadone Hcl 20 Mg PO EVERY 4-6 HOURS 09/29/09 Active Oxycodone Hcl 10 Mg PO EVERY 4-6 HOURS 09/29/09 Active Tramadol HCl 50 Mg PO Every 6 Hours PRN PRN ORDERS 01/18/15 Active Social History Social History Problem Response Recorded Date/Time Hx Alcohol Use No 01/18/2015 7:34am Query Response Start Date Stop Date Smoking Status Current every day smoker Hospital Discharge Instructions No hospital discharge instructions. Plan of Care No plan of care. Functional Status Query Response Date Recorded Physical Hygiene Self January 18, 2015 7:34am Disabilities None January 18, 2015 7:34am Devices Used None January 18, 2015 7:34am Dressing Self January 18, 2015 7:34am Ambulation Self January 18, 2015 7:34am Diet Self January 18, 2015 7:34am Mental Status Alert Oriented January 18, 2015 7:34am Disabilities None January 18, 2015 7:34am Devices Used None January 18, 2015 7:34am Physical Hygiene Self January 18, 2015 7:34am Dressing Self January 18, 2015 7:34am Ambulation Self January 18, 2015 7:34am Diet Self January 18, 2015 7:34am Allergies, Adverse Reactions, Alerts Allergen Type Severity Reaction Status Last Updated Iodine Allergy Unknown Active 01/18/15 Clarithromycin Allergy Unknown Active 01/18/15 Levofloxacin Allergy Unknown Active 01/18/15 Immunizations Name Given Type Hx Influenza Vaccination No Historical Hx Influenza Vaccination No Historical Hx Tetanus Diptheria Yes Historical Vital Signs Acute Vital Signs Vital Response Date/Time Temperature (Fahrenheit) 99.3 deg F (96.8 - 99.1) Temperature (Calculated Celsius) 37.67696 degrees C (36.0 - 37.3) Pulse Rate (adult) 70 bpm (60 - 100) Respiratory Rate 20 breaths/min (10 - 20) O2 Sat by Pulse Oximetry 96 % (90 - 100) Blood Pressure 146/66 mm Hg Height 5 ft 9 in Weight 290 lb Body Mass Index 42.0 kg/m^2 Results Test Source Date Result Interp. Ref. Range Comments Lipase January 18, 2015 8:40am 29 U/L N 23-300 Amylase Level January 18, 2015 8:40am < 30 U/L L 30-110 Alanine Aminotransferase (ALT/SGPT) January 18, 2015 8:40am 32 U/L N 9-52 Albumin January 18, 2015 8:40am 3.6 G/DL N 3.5-5.0 Albumin/Globulin Ratio January 18, 2015 8:40am 1.1 RATIO N 1.1-2.2 Alkaline Phosphatase January 18, 2015 8:40am 92 U/L N 38-126 Anion Gap January 18, 2015 8:40am 10 MEQ/L N 5-15 Aspartate Amino Transf (AST/SGOT) January 18, 2015 8:40am 21 U/L N 14-36 BUN/Creatinine Ratio January 18, 2015 8:40am 8 RATIO N 6-26 Band Neutrophils # October 26, 2013 10:20pm 0.4 T/MM3 - Band Neutrophils % October 26, 2013 10:20pm 4.0 % N 0-6 Basophils # (Auto) January 18, 2015 8:05am 0.0 T/MM3 N 0-0.2 Basophils (%) (Auto) January 18, 2015 8:05am 0.3 % N 0-2 Blood Urea Nitrogen January 18, 2015 8:40am 8.0 MG/DL N 7-17 Body Fluid Color November 08, 2009 4:40pm Red - Has specimen been collected/obtained? YSpecimen Description: KNEE Body Fluid Crystals November 08, 2009 4:40pm Neg - Has specimen been collected/obtained? Y Body Fluid Lymphocytes November 08, 2009 4:40pm 84 % - Has specimen been collected/obtained? YSpecimen Description: KNEE Body Fluid Monocytes November 08, 2009 4:40pm 14 % - Has specimen been collected/obtained? YSpecimen Description: KNEE Body Fluid Neutrophils November 08, 2009 4:40pm 2 % - Has specimen been collected/obtained? YSpecimen Description: KNEE Body Fluid Turbidity November 08, 2009 4:40pm Cloudy - Has specimen been collected/obtained? YSpecimen Description: KNEE Body Fluid Type November 08, 2009 4:40pm Aspirate - Has specimen been collected/obtained? YSpecimen Description: KNEE Calcium Level January 18, 2015 8:40am 8.8 MG/DL N 8.4-10.2 Calculated Osmolality January 18, 2015 8:40am 267 MOSM/KG N 261-280 Carbon Dioxide Level January 18, 2015 8:40am 28 MEQ/L N 22-30 Chemistry Specimen Hemolysis January 18, 2015 8:40am < 15 0-25 0-25: No Hemolysis.26-70: Slight Hemolysis - can falsely elevate K and Urine Protein. 71-285: Moderate Hemolysis - can falsely elevate K, Troponin I, CA 19-9, PTH, CSF GLucose, and Urine Protein, and can falsely decrease Phenytoin. 286-999: Gross Hemolysis - can falsely elevate K, Troponin I, CA 19-9, PTH, CSF Glucose, and Urine Protine, and can falsely decrease Phenytoin. Recommend specimen recollection. Chloride Level January 18, 2015 8:40am 102 MEQ/L N 98-107 Creatinine January 18, 2015 8:40am 1.0 MG/DL N 0.7-1.2 D-Dimer October 26, 2013 10:20pm < 150 NG/ML 0-230 <224 NG/ML= PRESUMPTIVE NEGATIVE FOR PE OR DVT>224 NG/ML=ADDITIONAL EVALUATION FOR PE OR DVT RECOMMENDED Eosinophils # (Auto) January 18, 2015 8:05am 0.2 T/MM3 N 0-0.5 Eosinophils (%) (Auto) January 18, 2015 8:05am 2.7 % N 0-4 Globulin January 18, 2015 8:40am 3.4 G/DL N 2.4-3.6 Glomerular Filtration Rate Calc January 18, 2015 8:40am 58 - Glucose Level January 18, 2015 8:40am 107 MG/DL N 65-110 Group A Streptococcus Screen February 18, 2013 8:00pm Negative - Strep culture confirmation to follow Hematocrit January 18, 2015 8:05am 36.0 % N 36-46 Hemoglobin January 18, 2015 8:05am 11.6 GM/DL L 12-16 Icterus Index January 18, 2015 8:40am < 2 0-7 Immature Granulocyte # (Auto) January 18, 2015 8:05am 0.02 T/MM3 N 0.00- 0.03 Immature Granulocyte % (Auto) January 18, 2015 8:05am 0.3 % N 0.0-0.5 Influenza Type A Antigen October 26, 2013 9:50pm Positive - This test can not distinguish influenza A virus subtypes,e.g., seasonal influenza A and novel influenza A (H1N1). Influenza Type B Antigen October 26, 2013 9:50pm Negative - Negative for Flu B protein antigen. Assay sensitivity isbetween 65-83%. A negative result does not exclude influenza virus infection. "Influenza FA" may be ordered if clinical presentation warrants confirmatory testing. Lymphocytes # (Auto) January 18, 2015 8:05am 1.9 T/MM3 N 1-4.8 Lymphocytes # (Manual) October 26, 2013 10:20pm 1.1 T/MM3 N 1-4.8 Lymphocytes % (Manual) October 26, 2013 10:20pm 11.0 % L 23-45 Lymphocytes (%) (Auto) January 18, 2015 8:05am 28.2 % N 23-45 Mean Corpuscular Hemoglobin January 18, 2015 8:05am 27.7 UUG N 26-34 Mean Corpuscular Hemoglobin Concent January 18, 2015 8:05am 32.2 GM/DL N 31-37 Mean Corpuscular Volume January 18, 2015 8:05am 85.9 UM3 N 80-100 Mean Platelet Volume January 18, 2015 8:05am 10.9 UM3 N 9.4-12.4 Monocytes # (Auto) January 18, 2015 8:05am 0.5 T/MM3 N 0-0.8 Monocytes # (Manual) October 26, 2013 10:20pm 0.4 T/MM3 N 0-0.8 Monocytes % (Manual) October 26, 2013 10:20pm 4.0 % N 0-9.0 Monocytes (%) (Auto) January 18, 2015 8:05am 8.1 % N 0-9.0 Neutrophils # (Auto) January 18, 2015 8:05am 4.0 T/MM3 N 1.8-7.7 Neutrophils # (Manual) October 26, 2013 10:20pm 8.3 T/MM3 H 1.8-7.7 Neutrophils % (Manual) October 26, 2013 10:20pm 81.0 % H 33-66 Neutrophils (%) (Auto) January 18, 2015 8:05am 60.4 % N 33-66 Nucleated Red Blood Cells October 26, 2013 10:20pm 1 - Platelet Count January 18, 2015 8:05am 236 T/MM3 N 130-400 Potassium Level January 18, 2015 8:40am 3.6 MEQ/L N 3.6-5 Procalcitonin October 26, 2013 10:20pm < 0.05 NG/ML - PCT </=0.5 ng/ mL - sepsis not likely;PCT >0.5 and </=2 ng/mL - sepsis possible; PCT >2 ng/mL - sepsis likely; PCT >/=10 ng/mL - systemic inflammatory response - sepsis or septic shock highly indicated. RDW Standard Deviation January 18, 2015 8:05am 43.6 FL N 36.9-50.2 Red Blood Count January 18, 2015 8:05am 4.19 M/MM3 N 4.00-5.20 Sodium Level January 18, 2015 8:40am 140 MEQ/L N 134-144 Total Bilirubin January 18, 2015 8:40am 0.10 MG/DL L 0.20-1.30 Total Protein January 18, 2015 8:40am 7.0 G/DL N 6.3-8.2 Troponin I October 26, 2013 10:20pm < 0.012 ng/ml 0-0.12 Turbidity January 18, 2015 8:40am < 20 0-20 Uric Acid November 08, 2009 6:00pm 4.9 MG/DL N 2.5-7.5 Urine Bacteria January 18, 2015 7:30am None seen - Has specimen been collected/obtained? Y Urine Bilirubin January 18, 2015 7:30am Negative - Has specimen been collected/obtained? Y Urine Blood January 18, 2015 7:30am 3+ H - Has specimen been collected/ obtained? Y Urine Collection Type January 18, 2015 7:30am Cleancatch-midstream - Has specimen been collected/obtained? Y Urine Color January 18, 2015 7:30am Yellow - Has specimen been collected/obtained? Y Urine Glucose (UA) January 18, 2015 7:30am Negative - Has specimen been collected/obtained? Y Urine Ketones January 18, 2015 7:30am Negative - Has specimen been collected/obtained? Y Urine Leukocyte Esterase January 18, 2015 7:30am Negative - Has specimen been collected/obtained? Y Urine Nitrite January 18, 2015 7:30am Negative - Has specimen been collected/obtained? Y Urine Protein January 18, 2015 7:30am Negative - Has specimen been collected/obtained? Y Urine RBC January 18, 2015 7:30am 20-30 /HPF H - Has specimen been collected/obtained? Y Urine Specific [place] January 18, 2015 7:30am 1.010 L - Has specimen been collected/obtained? Y Urine Turbidity January 18, 2015 7:30am Clear - Has specimen been collected/obtained? Y Urine Urobilinogen January 18, 2015 7:30am 0.2 EU/DL - Has specimen been collected/obtained? Y Urine WBC January 18, 2015 7:30am 0-1 /HPF - Has specimen been collected/obtained? Y Urine pH January 18, 2015 7:30am 6.0 - Has specimen been collected/ obtained? Y Venous Blood Lactate October 26, 2013 10:20pm 1.2 MMOL/L N 0.6-2.2 White Blood Count January 18, 2015 8:05am 6.6 T/MM3 N 4.5-11.0 Blood Culture Blood October 26, 2013 10:27pm NO GROWTH AFTER 5 DAYS Group A Streptococcus Culture Throat February 18, 2013 8:21pm Gram Stain Knee, Non-Surgical Site-Left November 08, 2009 4:34pm Procedures No known history of procedures. Encounters Encounter Location Date/Time Registered Emergency Room [facility] 01/18/15 6:24am Recent Diagnosis
--- OUTSIDE RECORDS SUMMARY | 2017-03-28 13:10 | XMS REPORT | Continuity of Care Document ---
Author Author [facility] Organization [facility] Address Unknown Phone Unavailable Support Name Relationship Address Phone SCOTT SANCHEZ MD Caregiver [address] [place] [address] CRISTA ASTORGA MD Caregiver [address] [place] [phone] MOLLY GILBERT Next Of Kin [address] [place], [place] [id number] Insurance Providers Payer Name Policy Number Subscriber Name Relationship Medicare [id number] Becki Gilbert 20 Self Medicaid [id number] Becki Gilbert 20 Self Problems Medical Problems Problem Onset Date Status Influenza Unknown Active Vaginal bleeding Unknown Active Vaginal bleeding Unknown Active COPD (chronic obstructive pulmonary disease) with acute bronchitis Unknown Active Medications Medication Dose Route Sig Days/Qty Instructions Order Date Discontinued Date Status Amitriptyline Hcl 225 Mg PO BEDTIME 09/29/09 Active Methadone Hcl 20 Mg PO EVERY 4-6 HOURS 09/29/09 Active Oxycodone Hcl 10 Mg PO EVERY 4-6 HOURS 09/29/09 Active Tramadol HCl 50 Mg PO Every 6 Hours PRN PRN ORDERS 01/18/15 Active Cefdinir 300 Mg PO TWICE A DAY 10 Days 01/23/15 Active Prednisone 10 Mg PO GIVE WITH BREAKFAST 30 Qty Take 5 tabs po daily with food x 2 days, then 4 tabs daily 01/23/15 Active Ipratropium/Albuterol Sulfate 2 Puff PO FOUR TIMES DAILY 1 Qty Active Social History Social History Problem Response Recorded Date/Time Hx Alcohol Use No 01/23/2015 2:45pm Tobacco Usage none 01/19/2015 7:37pm Query Response Start Date Stop Date Smoking Status Current every day smoker Hospital Discharge Instructions No hospital discharge instructions. Plan of Care No plan of care. Functional Status Query Response Date Recorded Physical Hygiene Self January 23, 2015 2:45pm Disabilities None January 23, 2015 2:45pm Devices Used None January 23, 2015 2:45pm Dressing Self January 23, 2015 2:45pm Ambulation Self January 23, 2015 2:45pm Diet Self January 23, 2015 2:45pm Mental Status Alert Oriented January 23, 2015 5:13pm Disabilities None January 23, 2015 2:45pm Devices Used None January 23, 2015 2:45pm Physical Hygiene Self January 23, 2015 2:45pm Dressing Self January 23, 2015 2:45pm Ambulation Self January 23, 2015 2:45pm Diet Self January 23, 2015 2:45pm Allergies, Adverse Reactions, Alerts Allergen Type Severity Reaction Status Last Updated Iodine Allergy Unknown Active 01/23/15 Clarithromycin Allergy Unknown Active 01/23/15 Levofloxacin Allergy Unknown Active 01/23/15 Immunizations Name Given Type Hx Influenza Vaccination No Historical Hx Influenza Vaccination No Historical Hx Tetanus Diptheria Yes Historical Vital Signs Acute Vital Signs Vital Response Date/Time Temperature (Fahrenheit) 98.4 deg F (96.8 - 99.1) Temperature (Calculated Celsius) 36.06370 degrees C (36.0 - 37.3) Pulse Rate (adult) 106 bpm (60 - 100) Respiratory Rate 22 breaths/min (10 - 20) O2 Sat by Pulse Oximetry 95 % (90 - 100) Oxygen Flow Rate 2 L/min Blood Pressure 162/77 mm Hg Height 5 ft 9 in Weight 306 lb Body Mass Index 45.0 kg/m^2 Results Test Source Date Result Interp. Ref. Range Comments Mycoplasma pneumoniae (PCR) January 23, 2015 3:45pm Not detected - Has specimen been collected/obtained? Y Chlamydia pneumoniae DNA (PCR) January 23, 2015 3:45pm Not detected - Has specimen been collected/obtained? Y Bordetella parapertussis DNA (PCR) January 23, 2015 3:45pm Not detected - Has specimen been collected/obtained? Y Respiratory Syncytial Virus (PCR) January 23, 2015 3:45pm Not detected - Has specimen been collected/obtained? Y Parainfluenza Type 4 (PCR) January 23, 2015 3:45pm Not detected - Has specimen been collected/obtained? Y Parainfluenza Type 3 (PCR) January 23, 2015 3:45pm Not detected - Has specimen been collected/obtained? Y Parainfluenza Type 2 (PCR) January 23, 2015 3:45pm Not detected - Has specimen been collected/obtained? Y Parainfluenza Type 1 (PCR) January 23, 2015 3:45pm Not detected - Has specimen been collected/obtained? Y Influenza Virus Type B (PCR) January 23, 2015 3:45pm Detected H - Has specimen been collected/obtained? Y Influenza Virus Type A (PCR) January 23, 2015 3:45pm Not detected - Has specimen been collected/obtained? Y Enterovirus/Rhinovirus (PCR) January 23, 2015 3:45pm Not detected - Has specimen been collected/obtained? Y Human Metapneumovirus (PCR) January 23, 2015 3:45pm Not detected - Has specimen been collected/obtained? Y Coronavirus Type OC43 (PCR) January 23, 2015 3:45pm Not detected - Has specimen been collected/obtained? Y Coronavirus Type NL63 (PCR) January 23, 2015 3:45pm Not detected - Has specimen been collected/obtained? Y Coronavirus Type HKU1 (PCR) January 23, 2015 3:45pm Not detected - Has specimen been collected/obtained? Y Coronavirus Type 229E (PCR) January 23, 2015 3:45pm Not detected - Has specimen been collected/obtained? Y Adenovirus (PCR) January 23, 2015 3:45pm Not detected - Has specimen been collected/obtained? Y Alanine Aminotransferase (ALT/SGPT) January 23, 2015 3:18pm 32 U/L N 9-52 Albumin January 23, 2015 3:18pm 3.8 G/DL N 3.5-5.0 Albumin/Globulin Ratio January 23, 2015 3:18pm 1.0 RATIO L 1.1-2.2 Alkaline Phosphatase January 23, 2015 3:18pm 79 U/L N 38-126 Amylase Level January 18, 2015 8:40am < 30 U/L L 30-110 Anion Gap January 23, 2015 3:18pm 12 MEQ/L N 5-15 Aspartate Amino Transf (AST/SGOT) January 23, 2015 3:18pm 25 U/L N 14-36 BUN/Creatinine Ratio January 23, 2015 3:18pm 7 RATIO N 6-26 Band Neutrophils # October 26, 2013 10:20pm 0.4 T/MM3 - Band Neutrophils % October 26, 2013 10:20pm 4.0 % N 0-6 Basophils # (Auto) January 23, 2015 3:18pm 0.0 T/MM3 N 0-0.2 Basophils (%) (Auto) January 23, 2015 3:18pm 0.2 % N 0-2 Blood Urea Nitrogen January 23, 2015 3:18pm 6.0 MG/DL L 7-17 Body Fluid Color November 08, 2009 [...] collected/obtained? YSpecimen Description: KNEE Calcium Level January 23, 2015 3:18pm 9.4 MG/DL N 8.4-10.2 Calculated Osmolality January 23, 2015 3:18pm 266 MOSM/KG N 261-280 Carbon Dioxide Level January 23, 2015 3:18pm 25 MEQ/L N 22-30 Chemistry Specimen Hemolysis January 23, 2015 3:18pm < 15 0-25 0-25: No Hemolysis.26-70: Slight [...] Phenytoin. Recommend specimen recollection. Chloride Level January 23, 2015 3:18pm 103 MEQ/L N 98-107 Creatinine January 23, 2015 3:18pm 0.9 MG/DL N 0.7-1.2 D-Dimer October 26, 2013 10:20pm < 150 NG/ML 0-230 <224 NG/ML= PRESUMPTIVE NEGATIVE FOR PE OR DVT>224 NG/ML=ADDITIONAL EVALUATION FOR PE OR DVT RECOMMENDED Eosinophils # (Auto) January 23, 2015 3:18pm 0.0 T/MM3 N 0-0.5 Eosinophils (%) (Auto) January 23, 2015 3:18pm 0.3 % N 0-4 Globulin January 23, 2015 3:18pm 3.7 G/DL H 2.4-3.6 Glomerular Filtration Rate Calc January 23, 2015 3:18pm 66 - Glucose Level January 23, 2015 3:18pm 86 MG/DL N 65-110 Group A Streptococcus Screen February 18, 2013 8:00pm Negative - Strep culture confirmation to follow Hematocrit January 23, 2015 3:18pm 34.8 % L 36-46 Hemoglobin January 23, 2015 3:18pm 11.6 GM/DL L 12-16 Icterus Index January 23, 2015 3:18pm < 2 0-7 Immature Granulocyte # (Auto) January 23, 2015 3:18pm 0.02 T/MM3 N 0.00- 0.03 Immature Granulocyte % (Auto) January 23, 2015 3:18pm 0.3 % N 0.0-0.5 Influenza Type A [...] ordered if clinical presentation warrants confirmatory testing. Lipase January 18, 2015 8:40am 29 U/L N 23-300 Lymphocytes # (Auto) January 23, 2015 3:18pm 0.5 T/MM3 L 1-4.8 Lymphocytes # (Manual) October 26, 2013 10:20pm 1.1 T/MM3 N 1-4.8 Lymphocytes % (Manual) October 26, 2013 10:20pm 11.0 % L 23-45 Lymphocytes (%) (Auto) January 23, 2015 3:18pm 7.9 % L 23-45 Mean Corpuscular Hemoglobin January 23, 2015 3:18pm 28.2 UUG N 26-34 Mean Corpuscular Hemoglobin Concent January 23, 2015 3:18pm 33.3 GM/DL N 31-37 Mean Corpuscular Volume January 23, 2015 3:18pm 84.5 UM3 N 80-100 Mean Platelet Volume January 23, 2015 3:18pm 10.3 UM3 N 9.4-12.4 Monocytes # (Auto) January 23, 2015 3:18pm 0.5 T/MM3 N 0-0.8 Monocytes # (Manual) October 26, 2013 10:20pm 0.4 T/MM3 N 0-0.8 Monocytes % (Manual) October 26, 2013 10:20pm 4.0 % N 0-9.0 Monocytes (%) (Auto) January 23, 2015 3:18pm 9.2 % H 0-9.0 UQ-Brw-D-Type Natriuretic Peptide January 23, 2015 3:18pm 1510 PG/ML H 0- 175 Rule in cut points: <50 years old=450; 50-75 years old=900; >75 years old=1800; When utilizing ProBNP rule-in cut points, adjustment for impaired renal function is typically not required. Neutrophils # (Auto) January 23, 2015 3:18pm 4.8 T/MM3 N 1.8-7.7 Neutrophils # (Manual) October 26, 2013 10:20pm 8.3 T/MM3 H 1.8-7.7 Neutrophils % (Manual) October 26, 2013 10:20pm 81.0 % H 33-66 Neutrophils (%) (Auto) January 23, 2015 3:18pm 82.1 % H 33-66 Nucleated Red Blood Cells October 26, 2013 10:20pm 1 - Platelet Count January 23, 2015 3:18pm 197 T/MM3 N 130-400 Potassium Level January 23, 2015 3:18pm 4.1 MEQ/L N 3.6-5 Procalcitonin October 26, 2013 10:20pm < 0.05 NG/ML - PCT </=0.5 ng/ mL - sepsis not likely;PCT >0.5 and </=2 ng/mL - sepsis possible; PCT >2 ng/mL - sepsis likely; PCT >/=10 ng/mL - systemic inflammatory response - sepsis or septic shock highly indicated. RDW Standard Deviation January 23, 2015 3:18pm 42.9 FL N 36.9-50.2 Red Blood Count January 23, 2015 3:18pm 4.12 M/MM3 N 4.00-5.20 Sodium Level January 23, 2015 3:18pm 140 MEQ/L N 134-144 Total Bilirubin January 23, 2015 3:18pm 0.50 MG/DL N 0.20-1.30 Total Protein January 23, 2015 3:18pm 7.5 G/DL N 6.3-8.2 Troponin I January 23, 2015 3:18pm < 0.012 ng/ml 0-0.12 Turbidity January 23, 2015 3:18pm < 20 0-20 Uric Acid November 08, 2009 6:00pm 4.9 MG/DL N 2.5-7.5 Urine Bacteria January 23, 2015 4:15pm 1+ H - Has specimen been collected /obtained? Y Urine Bilirubin January 23, 2015 4:15pm Negative - Has specimen been collected/obtained? Y Urine Blood January 23, 2015 4:15pm 3+ H - Has specimen been collected/ obtained? Y Urine Collection Type January 23, 2015 4:15pm Voided-not cc-midstr - Has specimen been collected/obtained? Y Urine Color January 23, 2015 4:15pm Yellow - Has specimen been collected/obtained? Y Urine Culture Indicated January 23, 2015 4:15pm Cult not indicated - Has specimen been collected/obtained? Y Urine Glucose (UA) January 23, 2015 4:15pm Negative - Has specimen been collected/obtained? Y Urine Ketones January 23, 2015 4:15pm Negative - Has specimen been collected/obtained? Y Urine Leukocyte Esterase January 23, 2015 4:15pm Negative - Has specimen been collected/obtained? Y Urine Nitrite January 23, 2015 4:15pm Negative - Has specimen been collected/obtained? Y Urine Protein January 23, 2015 4:15pm Negative - Has specimen been collected/obtained? Y Urine RBC January 23, 2015 4:15pm 20-30 /HPF H - Has specimen been collected/obtained? Y Urine Specific [place] January 23, 2015 4:15pm 1.015 - Has specimen been collected/obtained? Y Urine Squamous Epithelial Cells January 23, 2015 4:15pm None seen - Has specimen been collected/obtained? Y Urine Turbidity January 23, 2015 4:15pm Clear - Has specimen been collected/obtained? Y Urine Urobilinogen January 23, 2015 4:15pm 0.2 EU/DL - Has specimen been collected/obtained? Y Urine WBC January 23, 2015 4:15pm 0-1 /HPF - Has specimen been collected/obtained? Y Urine pH January 23, 2015 4:15pm 8.0 - Has specimen been collected/ obtained? Y Venous Blood Lactate January 23, 2015 3:18pm 1.0 MMOL/L N 0.6-2.2 White Blood Count January 23, 2015 3:18pm 5.8 T/MM3 N 4.5-11.0 Blood Culture Blood October 26, 2013 10:27pm NO GROWTH AFTER 5 DAYS Group A Streptococcus Culture Throat February 18, 2013 8:21pm Gram Stain Knee, Non-Surgical Site-Left November 08, 2009 4:34pm Name: BECKI GILBERT Unit #: [id number] : [id number] Sex: F Loc / Svc: ED DOS: 01/23/15 Signed Report #: [id number] DIAGNOSTIC IMAGING REPORT TYPE OF EXAM: CHEST, PA & LATERAL Dictated By: ESPERANZA JENKINS MD INDICATION: ITS.REASON: cough dyspnea fever CHEST 2-VIEWS UPRIGHT (PA & LAT) COMPARISON: October 26, 2013 FINDINGS: The lungs are clear without evidence of focal abnormal airspace opacity. There is no pleural effusion or pneumothorax. The heart size, mediastinal contours and pulmonary vascularity are within normal limits. There is no significant skeletal abnormality. IMPRESSION: No acute cardiopulmonary disease. . Procedures Procedure Status Date Provider(s) COMPREHEN METABOLIC PANEL completed 01/18/15 URINALYSIS AUTO W/SCOPE completed 01/18/15 URINE TEST completed 01/18/15 ASSAY OF AMYLASE completed 01/18/15 ASSAY OF LIPASE completed 01/18/15 COMPLETE CBC W/AUTO DIFF WBC completed 01/18/15 EMERGENCY DEPT VISIT completed 01/18/15 [id number]"INFUSION, NORMAL SALINE SOLUTION , 1000 CC" completed 01/18/15 Encounters Encounter Location Date/Time Departed Emergency Room [facility] 01/23/15 2:30pm Departed Emergency Room [facility] 01/18/15 6:24am Recent Diagnosis
--- OUTSIDE RECORDS SUMMARY | 2017-03-28 13:10 | XMS REPORT | Referral Summary ---
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 Name Role Phone Mani Susan Primary Care Physician [phone] Encounter Date(s): 09/21/16 - 09/21/16 [facility] [place] [address]- Discharge Diagnosis: Adult-onset obesity Discharge Diagnosis: Alcoholic pancreatitis Discharge Diagnosis: Chronic pain disorder Discharge Diagnosis: Cellulitis of both lower extremities Discharge Diagnosis: Insomnia Discharge Diagnosis: Peripheral edema Discharge Diagnosis: Left carpal tunnel syndrome Discharge Diagnosis: Chronic back pain Discharge Disposition: 01-Home or Self Care Attending Physician: Ora Burger PA-C Admitting Physician: Ora Burger PA-C Vital Signs Most recent to 1 oldest [Reference Range]: Peripheral Pulse 107 bpm Rate [60-100 bpm] *HI* (09/21/16 2:03 PM) Blood Pressure 164/86 mmHg [90-140/60-90 mmHg] *HI* (09/21/16 2:03 PM) SpO2 97 % (09/21/16 2:03 PM) Problem List Condition Effective Dates Status [...] day), # 30 tabs, 0 Refill(s), Pharmacy: [id number], 1 tabs Oral Bedtime (once a day) Start Date: 09/21/16 Status: Ordered atenolol 25 mg oral tablet See Instructions, TAKE 1 TABLET BY MOUTH DAILY, # 30 tabs, [email or web address], TAKE 1 TABLET BY MOUTH DAILY Start Date: 09/07/16 Status: Ordered citalopram 20 mg oral tablet See Instructions, TAKE 1 TABLET BY MOUTH DAILY, # 30 tabs, [email or web address], TAKE 1 TABLET BY MOUTH DAILY Start Date: 09/07/16 Status: Ordered cloNIDine 0.1 mg oral tablet mg tabs, Oral, TID, 0 Refill(s) Start Date: 09/21/16 Status: Ordered fentaNYL Topical, 0 Refill(s) Start Date: 09/21/16 Status: Ordered Keflex 250 mg oral capsule 250 mg 1 caps, Oral, QID, X 10 days, # 40 caps, 0 Refill(s), Pharmacy: [facility] [id number], 1 caps Oral QID,x10 days Start Date: 09/21/16 Stop Date: 10/01/16 Status: Ordered Lasix 20 mg oral tablet 20 mg 1 tabs, Oral, Daily, # 14 tabs, 0 Refill(s), Pharmacy: [facility] [id number], 1 tabs Oral Daily Start Date: 09/21/16 Status: Ordered methadone 10 mg oral tablet See Instructions, 2 tabs with bkfst, 2 tabs with lunch, and 3 tabs with supper. Must last 7 days, # 49 tabs, 0 Refill(s) Start Date: 09/21/16 Status: Ordered Norvasc 5 mg oral tablet 5 mg 1 tabs, Oral, BID, # 60 tabs, 0 Refill(s), Pharmacy: [facility], 1 tabs Oral BID Start Date: 06/14/15 Status: Ordered oxyCODONE 5 mg oral tablet 1-2 tabs, Oral, q6hr, as needed for pain, # 10 tabs, 0 Refill(s), #30 MUST LAST 15 DAYS Start Date: 09/21/16 Status: Ordered Results No data available for this section Immunizations No data available for this section Procedures No data available for this section Social History Social History Type Response Smoking Status Current every day smoker; Tobacco use per day: Less than 1/4 pack1 1Pt. states she smokes 3 cigarettes a day and is trying to quit. Assessment and Plan Extracted from: Title: Office Visit Note- Hospital Author: Ora Burger PA-C Date : 09/21/16 f/u, edema, pain meds, cellultis, etc Assessment/Plan Adult-onset obesity D/w pt that Victoza is not a good option for her at this time d/t her recent h/opancreatitis.Continue to work on diet and exercise at this time. Ordered: Office Visit Level 5 Est 64223 Alcoholic pancreatitis Still having some pain from this. Advised NOT to drink ETOH. Continue with bland diet for now. Ordered: Office Visit Level 5 Est 33344 Cellulitis of both lower extremities She appears to have some cellulitis to her legs. Will tx with Keflex for now. Ordered: cephalexin, 250 mg 1 caps, Oral, QID, X 10 days, # 40 caps, 0 Refill(s), Pharmacy: [facility] [id number], 1 caps Oral QID,x10 days Office Visit Level 5 Est 47520 Chronic back pain I had d/w Dr. [...] 15 DAYS Office Visit Level 5 Est 63308 Chronic pain disorder See above. Ordered: methadone, See Instructions, 2 tabs with bkfst, 2 tabs with lunch, and 3 tabs with supper. Must last 7 days, # 49 tabs, 0 Refill(s) oxyCODONE, 1-2 tabs, Oral, q6hr, as needed for pain, # 10 tabs, 0 Refill(s), # 30 MUST LAST 15 DAYS Office Visit Level [address] Singleton was okay filling the Elavil again at this time. May restart this for sleep. Ordered: amitriptyline, 75 mg 1 tabs, Oral, Bedtime (once a day), # 30 tabs, 0 Refill(s) , Pharmacy: [id number], 1 tabs Oral Bedtime (once a day) Office Visit Level 5 Est 92596 Left carpal tunnel syndrome Recommended that she try a wrist brace to help with the numbness. If not helping, can get NCS. Ordered: Office Visit Level 5 Est 41127 Peripheral edema D/w pt to elevate the legs above the level of heart, and also try compression hose. There is quite a bit of edema today. Will try her on a short course of Lasix, and wouldhave liked to recheckthis in 2 weeks, however, she is coming back in on 09/[address] Singleton and can recheck at that time. Ordered: furosemide, 20 mg 1 tabs, Oral, Daily, # 14 tabs, 0 Refill(s), Pharmacy: [facility] [id number], 1 tabs Oral Daily Office Visit Level 5 Est 65406
[2017-03-28] MEDS ORDERED: NORMAL SALINE 1,000 ML IV ONE (13:14)
[2017-03-28] MEDS ORDERED: ONDANSETRON 4mg/2ml INJECTION IV ONE (13:15)
[2017-03-28] MEDS ORDERED: METOCLOPRAMIDE 10mg/2ml INJECTION IV ONE (13:15)
[2017-03-28] MEDS ORDERED: NO ROUTINE MEDS (13:19)
[2017-03-28 13:31] LABS: BASOPHILS % (AUTO) 0.4 % (0-2); EOSINOPHILS % (AUTO) 0.2 % (0-4); HCT - HEMATOCRIT 44.2 % (36-46); HGB - HEMOGLOBIN 14.8 GM/DL (12-16); IMMATURE GRANULOCYTE # (AUTO) 0.04 T/MM3 (0.00-0.03); IMMATURE GRANULOCYTE % (AUTO) 0.4 % (0.0-0.5); LYMPHOCYTES # (AUTO) 2.3 T/MM3 (1-4.8); LYMPHOCYTES % (AUTO) 23.2 % (23-45); MEAN CORPUSCULAR HGB 32.8 UUG (26-34); MEAN CORPUSCULAR HGB CONC(MCHC 33.5 GM/DL (31-37); MEAN PLATELET VOLUME 11.1 UM3 (9.4-12.4); MONOCYTES # (AUTO) 0.5 T/MM3 (0-0.8); MONOCYTES % (AUTO) 4.6 % (0-9.0); NEUTROPHILS % (AUTO) 71.2 % (33-66); RED BLOOD COUNT 4.51 M/MM3 (4.00-5.20); WBC - WHITE BLOOD COUNT 9.8 T/MM3 (4.5-11.0)
[2017-03-28 13:33] LABS: ALBUMIN 4.8 G/DL (3.5-5.0); ALBUMIN/GLOBULIN RATIO 1.3 RATIO (1.1-2.2); ALKALINE PHOSPHATASE 138 U/L (38-126); ALT (SGPT) 119 U/L (9-52); ANION GAP 18 MEQ/L (5-15); AST (SGOT) 143 U/L (14-36); BUN/CREATININE RATIO 8 RATIO (6-26); CALCIUM 9.9 MG/DL (8.4-10.2); CHLORIDE 105 MEQ/L (98-107); CO2 - CARBON DIOXIDE 23 MEQ/L (22-30); CREATININE 1.1 MG/DL (0.7-1.2); GLOMERULAR FILTRATION RATE 52; GLUCOSE 121 MG/DL (65-110); POTASSIUM 3.1 MEQ/L (3.6-5); SODIUM 146 MEQ/L (134-144); TOTAL PROTEIN 8.5 G/DL (6.3-8.2)
[2017-03-28] MEDS ORDERED: SALINE FLUSH 10ml SYRINGE ONE (13:55)
[2017-03-28] MEDS ORDERED: IOHEXOL 300 MG/ML 100ml INJECTION ONE (13:55)
[2017-03-28] MEDS ORDERED: NORMAL SALINE 100 ML ONE (13:55)
--- NOTE | 2017-03-28 13:56 | NUR ---
TO CT PER CART
[2017-03-28] MEDS ORDERED: HYDROMORPHONE 2mg/ml INJECTION IV ONE (14:00)
[2017-03-28 14:09] LABS: LIPASE 137 U/L (23-300)
[2017-03-28 14:22] LABS: BLOOD, URINE 3+ (NEGATIVE); COLOR,URINE ORANGE (YELLOW); LEUKOCYTE ESTERASE ,URINE TRACE (NEGATIVE); NITRITE,URINE NEGATIVE (NEGATIVE); UROBILINOGEN,URINE 0.2 EU/DL (NORMAL)
[2017-03-28 14:29] LABS: RBC,URINE TNTC /HPF (0-3)
[2017-03-28 14:30] LABS: BACTERIA,URINE TRACE (NEGATIVE)
--- NOTE | 2017-03-28 14:52 | ERPDOC ---
Departure Disposition Decision Date: March 28, 2017 Disposition Decision Time: 14:59 Disposition: 01 DISCHARGED HOME, SELF-CARE Impression Impression Impression: Primary Impression: Alcoholism Additional Impressions: Gastritis History of pancreatitis Severity: Moderate Condition: Stable Seen By: Physician only Referrals: JORGE GASPAR MD (Family) Patient Instructions: Gastritis (ED) Problems/Meds/Labs Reviewed?: Yes Medications reviewed and manag: Yes Additional Instructions: You need to avoid alcohol as it is irritating both her stomach and pancreas. GI cocktail will help acutely with pain. Follow up care ordered?: Yes Mental Status: Alert, Oriented HPI - Abdominal Pain General Chief Complaint: Abdominal Pain Stated Complaint: ABD PAIN Time Seen by Provider: 13:12 HPI - Abdominal Pain Initial Comments 57-year-old female presents with abdominal pain for 1 day. She has a history of pancreatitis, but states she has stopped drinking previously. This last week she had a bad week and began drinking a little bit. Initially she admitted to one fifth of liquor, as we talked she stated she had a low more than that, but would not be specific. Pain started last night kept her up all night. Today became bad enough she called EMS. She has been vomiting. She received 250 g of fentanyl IV on the way over with EMS and her pain went from 10 to a 9. Pain is midepigastric Allergies: Coded Allergies: clarithromycin (Verified Allergy, Unknown, 03/28/17) levofloxacin (Verified Allergy, Unknown, 03/28/17) Past History Past Medical History Metabolic: hypertension GI: other Musculoskeletal: back pain, neck pain Surgical History General: other Family History Family PMH: FOUND: other Vaccines Hx Influenza Vaccination: No Hx Tetanus Diptheria: Yes Social History Last Drink: prior to arrival Record Review Pertinent history updated: Yes Review of Systems GI Upper Abdomen: see HPI Lower Abdomen: see HPI Physical Exam General General Nourishment: well nourished, well developed, appears stated age Distress Description Acute abdominal pain. General Body Habitus: disheveled Vitals and Pain First Documented Vital Signs Date Time Temp Pulse Resp B/P Pulse Ox O2 Delivery O2 Flow Rate FiO2 03/28/17 13:05 98.3 103 20 149/70 100 Room Air Weight: Kilograms: 120.500 Height (feet): 5 Height (inches): 8.00 Triage Pain Scale: Normal Exams: Head: Normocephalic w/o trauma Chest/Resp: Clear all ramirez CV: Regular rate and rhythm Neurologic: Patient is alert, and oriented, cranial nerves, motor/sensory/ cerebellar, exams w/o gross deficits, to observation Psychiatric: Patient exhibits, appropriate attention, emotion and affect Abdomen (brief) Comments Slightly hyperactive bowel sounds, tender midepigastric, no masses palpable, obese. Differential Diagnoses Considering: Other (pancreatitis, gastritis, colitis, small bowel obstruction, hepatitis, cholecystitis) Progress Results/Orders Orders Procedure Category Date Status Time Iv Lock (Ed Only) EDM 03/28/17 Transmitted 13:14 Nothing By Mouth (Ed EDM 03/28/17 Transmitted Only) 13:14 Cbc W/Auto LAB 03/28/17 Complete Diff-Reflex Manual 13:14 Cmp - Comprehensive LAB 03/28/17 Complete Metabolic 13:14 Lipase LAB 03/28/17 Complete 13:14 Blood Culture HILDA 03/28/17 In Process 13:14 Ct Abd/Pelvis CT 03/28/17 Logged W/Contrast Only 13:14 Normal Saline (Normal PHA 03/28/17 Complete Saline Iv) 13:14 Metoclopramide PHA 03/28/17 Complete (Reglan Inj) 13:15 Ondansetron Inj PHA 03/28/17 Complete (Zofran) 13:15 C-Reactive Protein - LAB 03/28/17 Complete CRP 13:46 Iohexol (Omnipaque) PHA 03/28/17 Complete 13:55 Normal Saline (Ns) PHA 03/28/17 Complete 13:55 Saline Flush (Iv PHA 03/28/17 Complete Flush) 13:55 Hydromorphone PHA 03/28/17 Complete (Dilaudid) 14:00 UA, LAB 03/28/17 Complete Dip&Micro(Complete) & 14:13 Lab Results Laboratory Tests Test 03/28/17 13:15 03/28/17 13:38 03/28/17 14:13 White Blood Count 9.8T/MM3 Red Blood Count 4.51M/MM3 Hemoglobin 14.8GM/DL Hematocrit 44.2% Mean Corpuscular Volume 98.0UM3 Mean Corpuscular Hemoglobin 32.8UUG Mean Corpuscular Hemoglobin Concent 33.5GM/DL RDW Standard Deviation 46.9FL Platelet Count 275T/MM3 Mean Platelet Volume 11.1UM3 Immature Granulocyte % (Auto) 0.4% Neutrophils (%) (Auto) 71.2% Lymphocytes (%) (Auto) 23.2% Monocytes (%) (Auto) 4.6% Eosinophils (%) (Auto) 0.2% Basophils (%) (Auto) 0.4% Absolute Immature Granulocyte (auto 0.04T/MM3 Absolute Neutrophils (auto) 7.0T/MM3 Absolute Lymphocytes (auto) 2.3T/MM3 Absolute Monocytes (auto) 0.5T/MM3 Absolute Eosinophils (auto) 0.0T/MM3 Absolute Basophils (auto) 0.0T/MM3 Turbidity < 20 Sodium Level 146MEQ/L Potassium Level 3.1MEQ/L Chloride Level 105MEQ/L Carbon Dioxide Level 23MEQ/L Anion Gap 18MEQ/L Blood Urea Nitrogen 9.0MG/DL Creatinine 1.1MG/DL Glomerular Filtration Rate Calc 52 BUN/Creatinine Ratio 8RATIO Glucose Level 121MG/DL Calculated Osmolality 281MOSM/KG Calcium Level 9.9MG/DL Total Bilirubin 0.60MG/DL Icterus Index < 2 Aspartate Amino Transf (AST/SGOT) 143U/L Alanine Aminotransferase (ALT/SGPT) 119U/L Alkaline Phosphatase 138U/L Total Protein 8.5G/DL Albumin 4.8G/DL Globulin 3.7G/DL Albumin/Globulin Ratio 1.3RATIO Lipase 137U/L Chemistry Specimen Hemolysis < 15 C-Reactive Protein < 5.0MG/L Urine Collection Type Cleancatch-midstream Urine Color Baca Urine Turbidity Cloudy Urine pH 5.5 Urine Specific [place] 1.015 Urine Protein 1+ Urine Glucose (UA) Negative Urine Ketones Negative Urine Blood 3+ Urine Nitrite Negative Urine Bilirubin Negative Urine Urobilinogen 0.2EU/DL Urine Leukocyte Esterase Trace Urine RBC Tntc/HPF Urine WBC 1-3/HPF Urine Squamous Epithelial Cells 10-20 Urine Bacteria Trace Urine Culture Indicated Cult not indicated Medications Current ED Medications Sodium Chloride (Normal Saline IV) 1,000 ml @ 0 mls/hr Q0M ONCE IV Last administered on 03/28/17 13:05; Start 03/28/17 at 13:14; Stop 03/28/17 at 13:22 ; Status DC Metoclopramide HCl (REGLAN Inj) 10 mg O ONCE IV Last administered on 13:47; Start 03/28/17 at 13:15; Stop 03/28/17 at 13:22; Status DC Ondansetron HCl (Zofran) 4 mg O ONCE IV Last administered on 03/28/17t 13:47; Start 03/28/17 at 13:15; Stop 03/28/17 at 13:22; Status DC Iohexol 1 bottle 1 bottle STK-MED ONCE .ROUTE ; Start 03/28/17 at 13:55; Stop at 13:56; Status DC Sodium Chloride (NS) 100 ml @ As Directed STK-MED ONCE .ROUTE ; Start 03/28/17 at 13:55; Stop 03/28/17 at 13:56; Status DC Sodium Chloride (Iv Flush) 10 ml STK-MED ONCE .ROUTE ; Start 03/28/17 at 13:55; Stop 03/28/17 at 13:56; Status DC Hydromorphone HCl (Dilaudid) 1 mg O ONCE IV Last administered on 03/28/17 14: 14; Start 03/28/17 at 14:00; Stop 03/28/17 at 14:01; Status DC Progress Progress White blood count 9.8, C-reactive protein less than 5, lipase is less than 140. CT scan abdomen and pelvis is negative. ALT AST and alkaline phosphatase are mildly elevated. The patient is mildly hypokalemic. I think she has been drinking more than just 1 day recently. This would account for elevated liver enzymes and continued pain. She most likely has a gastritis, alcohol induced. We will send her home with GI cocktail prescription, give 1 dose prior to leaving, repeat 30 mg Toradol but as an IM dose. Patient to follow up with her primary care provider on Wednesday. ROOPA MCLEAN MD March 28, 2017 14:52
[2017-03-28] MEDS ORDERED: KETOROLAC 30mg/ml INJECTION IM ONE (15:00)
--- OUTSIDE RECORDS SUMMARY | 2017-03-28 15:06 | XMS REPORT ---
Author Author [facility] Organization Unknown Address Unknown Phone Unavailable Care Team Providers Care Lead Advisor Name Role Phone UNASSIGNED DOCTOR , DOCTOR PP [phone] Reason For Visit Chief Complaint ABDOMINAL PAIN [...] of Care Procedures * Completed Procedure Code: [id number] Procedure Name: not valued, on 09/07/2016 12 [...]
--- OUTSIDE RECORDS SUMMARY | 2017-03-28 15:06 | XMS REPORT ---
Author Author [facility] Organization Unknown Address Unknown Phone Unavailable Care Team Providers Care Station Worker Name Role Phone UNASSIGNED DOCTOR MD OSVALDO DOCTOR PP [phone] Reason For Visit Reason for Visit from [...] MG/DL (65-99 MG/DL) *GFR EST NON AFR SENEGALESE 59 ML/MIN *GFR EST AFR AMER 69 [...] MG/DL (65-99 MG/DL) *GFR EST NON AFR SENEGALESE 55 ML/MIN *GFR EST AFR AMER 64 [...] MG/DL (65-99 MG/DL) *GFR EST NON AFR SENEGALESE 51 ML/MIN *GFR EST AFR AMER 59 [...] MG/DL (65-99 MG/DL) *GFR EST NON AFR SENEGALESE 59 ML/MIN *GFR EST AFR AMER 69 [...] MG/DL (65-99 MG/DL) *GFR EST NON AFR SENEGALESE 56 ML/MIN *GFR EST AFR AMER 65 [...] MG/DL (65-99 MG/DL) *GFR EST NON AFR SENEGALESE 61 ML/MIN *GFR EST AFR AMER 71 [...] AM* Status: Final Result URINALYSIS Specimen Number: [id number] Sample Collection Date/Time: 09/08/2016 8:50 AM Specimen [...] 09/08/2016 10:56 AM* CULTURE URINE Specimen Number: [id number] Sample Collection Date/Time: 09/08/2016 10:56 AM Specimen [...] 09/11/2016 10:40 AM:* Care Management Note : Regulatory Affairs Spec reviewed POC w/ Grace Guzman SW et [...] et received order to cont Fentanyl patch. Regulatory Affairs Spec noted that patient cont to receive Dilaudid et Morphine IV overnight. Regulatory Affairs Spec spoke w/ FELIPE Colón et updated on Dr. Basurto's consult. Will need to clarify pain medication orders. Dr. Sands will dc. Treatment Plan from 09/09/2016 11:00 AM:* Care Management Note : Regulatory Affairs Spec reviewed POC w/ Dr. Sands, JOB Edwards et interdisciplinary team during care rounds. voiced concern over patient's clinical condition. WBC et Lipase cont to rise. Patient w/ increasingly symptomatic. Dr. Sands to contact GI re: concerns. May require transfer to ICU vs transfer [place] for GI specialist. Treatment Plan from 09/08/2016 12:10 PM:* Care Management Note : SW'er met with patient to discuss discharge planning. Patient lives at home alone in [place]. She denies the need for any services [...] the responsibility of the patient or patient associate sales representative to confirm the list of medications with [...]
--- OUTSIDE RECORDS SUMMARY | 2017-03-28 15:06 | XMS REPORT | Continuity of Care Document ---
Author Author [facility] Organization [facility] Address Unknown Phone Unavailable Allergies Medications Problems [...] ORDOÑEZ E876 Hypokalemia 09/22/2016 SUSAN ORDOÑEZ E8809 [facility] disorders of plasma-protein metabolism, NEC 09/22/2016 SUSAN ORODÑEZ F1010 Alcohol abuse, uncomplicated 09/22/2016 SUSAN ORDOÑEZ F1120 Opioid dependence, uncomplicated 09/22/2016 SUSAN ORDOEÑZ G894 Chronic pain syndrome 09/22/2016 SUSAN ORDOÑEZ [...] of oth prt uterus 09/22/2016 SUSAN ORDOÑEZ R80261 Personal history of nicotine dependence Procedures Code Description Performed By Performed On [id number] 09/07/2016 Results Test Result Range COMPREHENSIVE METABOLIC PANEL - 09/07/16 00:05 TCO2 27.0 mmol/L 21.0-32.0 *ANION GAP 10.0 mmol/L 8.0-16.0 CALCIUM 9.1 8.5-10.1 ALBUMIN 3.1 3.4-5.0 *GLOBULIN 4.6 2.3-3.5 *A/G RATIO 0.7 1.5-2.2 LIPASE - 09/07/16 00:05 LIPASE 1233 U/L 73-393 GFR ESTIMATION - 09/07/16 00:05 *GFR EST NON AFR DANISH 53 mL/min NRG *GRFA EST AFR AMER [...] - 09/08/16 07:36 *GFR EST NON AFR DANISH 61 mL/min NRG *GRFA EST AFR AMER [...] - 09/10/16 06:45 *GFR EST NON AFR DANISH 59 mL/min NRG *GRFA EST AFR AMER [...] - 09/11/16 05:40 *GFR EST NON AFR DANISH 51 mL/min NRG *GRFA EST AFR AMER [...] - 09/12/16 05:53 *GFR EST NON AFR DANISH 55 mL/min NRG *GRFA EST AFR AMER [...] - 09/13/16 05:47 *GFR EST NON AFR DANISH 59 mL/min NRG *GRFA EST AFR AMER 69 mL/min NRG LIPASE - 09/13/16 05:47 LIPASE 110 U/L 73-393 PROTHROMBIN TIME - 11/14/16 05:59 *INR 1.2 0.9-1.1 *PROTHROMBIN TIME 12.0 s 9.4-11.5 Encounters ACCT No. Visit Date/Time Discharge Status Pt. Type Provider Facility Loc./Unit Complaint [id number] 09/06/2016 23:19:00 2015 14:39:42 DIS Outpatient UNASSIGNED DOCTOR, DOCTOR ABDOMINAL PAIN [id number] 09/07/2016 01:43:00 2015 18:06:12 DIS Inpatient SUSAN [...]
--- OUTSIDE RECORDS SUMMARY | 2017-03-28 15:06 | XMS REPORT | Continuity of Care Document ---
Author Author [facility] Organization [facility] Address Unknown Phone Unavailable Support Name Relationship Address Phone MARIA ESTHER GARCIA DO Caregiver [facility] [address] [place], [place] [phone] CRISTA ASTORGA MD Caregiver [address] [place] [address] [address] CARTY [place], [place] [phone] MOLLY LONG Next Of Kin [address] [place], [place] [id number] Insurance Providers Payer Name Policy Number Subscriber Name Relationship Medicare [id number] Becki Long 18 Self Medicaid [id number] Becki Long 18 Self Advance Directives Directive [...] F (96.8 - 99.1) Temperature (Calculated Celsius) 37.21863 degrees C (36.0 - 37.3) Pulse Rate [...] Has specimen been collected/obtained? Y Urine Specific Chloe January 18, 2015 7:30am 1.010 L - [...] Encounters Encounter Location Date/Time Registered Emergency Room [facility] 01/18/15 6:24am Recent Diagnosis
--- OUTSIDE RECORDS SUMMARY | 2017-03-28 15:06 | XMS REPORT | Continuity of Care Document ---
Author Author [facility] Organization [facility] Address Unknown Phone Unavailable Support Name Relationship Address Phone SCOTT SANCHEZ MD Caregiver [address] [place] [address] CRISTA ASTORGA MD Caregiver [address] [place] [phone] MOLLY GILBERT Next Of Kin [address] [place], [place] [id number] Insurance Providers Payer Name Policy Number Subscriber Name Relationship Medicare [id number] Becki Gilbert 18 Self Medicaid [id number] Becki Gilbert 18 Self Problems Medical Problems [...] F (96.8 - 99.1) Temperature (Calculated Celsius) 36.07668 degrees C (36.0 - 37.3) Pulse Rate [...] 23, 2015 3:18pm 9.2 % H 0-9.0 NO-Fnx-U-Type Natriuretic Peptide January 23, 2015 3:18pm 1510 [...] Has specimen been collected/obtained? Y Urine Specific [place] January 23, 2015 4:15pm 1.015 - Has [...] 2009 4:34pm Name: BECKI GILBERT Unit #: [id number] : 1960 Sex: F Loc / Svc: ED DOS: 01/23/15 Signed Report #: [id number] DIAGNOSTIC IMAGING REPORT TYPE OF EXAM: CHEST, [...] completed 01/18/15 EMERGENCY DEPT VISIT completed 01/18/15 [id number]"INFUSION, NORMAL SALINE SOLUTION , 1000 CC" completed 01/18/15 Encounters Encounter Location Date/Time Departed Emergency Room [facility] 01/23/15 2:30pm Departed Emergency Room [facility] 01/18/15 6:24am Recent Diagnosis
[2017-03-28] MEDS ORDERED: G.I. COCKTAIL 30ml PO ONE (15:15)
--- NOTE | 2017-03-28 15:25 | NUR ---
ACTIVITY AMB TO BR. SAYS SHE HAS HAD DIARRHEA ALL WEEK
[2017-03-28 15:37] VITALS: BP 196/89; PULSE 86; RESP 20; TEMP 97.9; O2SAT 97
--- NOTE | 2017-03-28 15:37 | NUR ---
DISMISSAL INSTRUCTIONS REVIEWED. PT VERBALIZES UNDERSTANDING. DISCHARGED AMB
--- NOTE | 2017-03-29 10:25 | DI ---
Indication: ITS.REASON: strip pancreatitis, abdominal pain PROCEDURE: CT ABD/PELVIS W/CONTRAST ONLY: Encounter: Initial Comparison: CT abdomen and pelvis dated December 14, 2015 Technique: Axial CT images were performed through the abdomen and pelvis after the administration of intravenous contrast. Coronal and sagittal two-dimensional reformats. Automated Exposure Control and Iterative Reconstruction dose reducing techniques were utilized. Contrast: Omnipaque 300 100 mL Findings: The lung bases are clear. The liver is diffusely fatty infiltrated and severely decreased in attenuation. No enhancing mass or bile duct dilatation. The gallbladder is normal. The spleen, pancreas, adrenal glands and kidneys appear normal. No abdominal or pelvic lymphadenopathy. The bladder is normal. Uterus appears normal. No free fluid. No evidence of a bowel obstruction. The appendix is surgically absent. Bone windows show no acute findings. Impression: No CT evidence of acute pancreatitis or acute disease process seen. Significant hepatic steatosis. There is a preliminary report by [facility] radiologic. .
== END 2017-03-28 15:37 | disposition home or self-care (01) ==
LOC: ED 13:04
DX: K29.70 Gastritis, unspecified, without bleeding (principal); F10.20 Alcohol dependence, uncomplicated; T51.0X1A Toxic effect of ethanol, accidental (unintentional), initial encounter; Y90.9 Presence of alcohol in blood, level not specified; Z86.39 Personal history of other endocrine, nutritional and metabolic disease
CPT/HCPCS: 36415; 74177; 80053; 81001; 83690; 85025; 86140; 87040; 96361; 96372; 96374; 96375; 99284; J1170; J1885; J2405; J2765; J7030; J7050; J7999; Q9967

== ENCOUNTER 2017-09-15 07:19 | Inpatient (IN) ==
[2017-09-15] MEDS ORDERED: HYDROMORPHONE 2 MG/ML INJECTION IVP ONE ×2 (07:25→10:00)
[2017-09-15] MEDS ORDERED: NS 1,000 ML IV ONE (07:25)
--- NOTE | 2017-09-15 07:26 | Emergency Department Report ---
Abdominal Pain HPI - General Stated Complaint: Abd pain Time Seen by Provider: 09/15/17 07:25 Source: patient, EMS, old records reviewed Mode of arrival: EMS - History of Present Illness HPI narrative: Patient is a 57-year-old female presents emergent for evaluation of abdominal pain. Patient does have a history of chronic alcoholism, sternly states she is not drinking. Patient does have a history of pancreatitis in the past. Patient 's had 3-4 days of abdominal pain with nausea, and diarrhea. Patient this morning severe pain, decided to call EMS to bring patient to the ER for evaluation. MD complaint: abdominal pain Onset (ago): day(s) Consistency: constant Quality: cramping, aching Relieving factors: nothing - Related Data Home Medications Medication Instructions Recorded Confirmed No known Home medications [No home 09/15/17 09/15/17 meds] Allergies Allergy/AdvReac Type Severity Reaction Status Date / Time clarithromycin Allergy Mild Verified 09/15/17 09:00 Review of Systems Constitutional: Denies: fever, chills, weakness ENT: Denies: throat pain, dental pain Cardiovascular: Denies: chest pain, palpitations, dyspnea on exertion Respiratory: Denies: cough, dyspnea, wheezes Gastrointestinal: Reports: abdominal pain, nausea, diarrhea. Denies: vomiting, constipation Genitourinary: Denies: dysuria, frequency Integumentary: Denies: pruritus, rash, jaundice Neurological: Denies: headache, weakness Psychiatric: Denies: anxiety, depression PFS Patient Stated Medical History Other GI Yes: PANCREATITIS Other Musculoskeletal Yes: ARTHRITIS Depression Yes Clinic Medical History Alcohol dependence (Inactive Medical) Alcohol intoxication (Inactive Medical) Surgical History: Denies any abdominal surgeries - Social History Smoking status: Current every day smoker Substance use type: does not use Physical Exam - General General appearance: alert, in distress - ENT ENT exam: Present: normal oropharynx, mucous membranes moist - Neck Neck exam: Present: full ROM, trachea midline - Chest Chest inspection: Present: symmetric chest wall rise. Absent: tenderness - Respiratory Respiratory exam: Present: normal lung sounds bilaterally. Absent: respiratory distress, wheezes, stridor - Cardiovascular Cardiovascular exam: Present: regular rate, normal rhythm, normal heart sounds - Abdominal Exam Abdominal exam: Present: soft, distention, tenderness (diffuse tenderness), guarding, diminished bowel sounds. Absent: rebound - Skin Skin exam: Present: warm, dry - Neurological Exam Neurological exam: Present: alert, oriented X3 - Psychiatric Psychiatric exam: Present: normal affect, normal mood Abdominal Pain - Differential Diagnosis Differential diagnosis: Likely: abdominal pain, acute appendicitis, calculus of kidney, constipation, diverticulitis, gastroenteritis, pancreatitis, small bowel obstruction - Medical Records Attestation: I reviewed the patient's medical records. - Lab Data Attestation: I reviewed the patient's lab results. Result diagrams: 09/15/17 07:34 09/15/17 07:34 - Radiology Data Attestation: I reviewed the patient's radiology results. Patient with pancreatitis, no signs of ascites. Discuss case with hospitalist service he'll admit Disposition Clinical Impression: Urinary tract infection Qualifiers: Urinary tract infection type: acute cystitis Hematuria presence: without hematuria Qualified Code(s): N30.00 - Acute cystitis without hematuria Pancreatitis Qualifiers: Chronicity: acute Pancreatitis type: alcohol induced Acute pancreatitis complication: no infection or necrosis Qualified Code(s): K85.20 - Alcohol induced acute pancreatitis without necrosis or infection Disposition: 02 To [facility] [place] Acute Care Condition: Stable Time of Disposition: 10:31 - Seen By: physician
[2017-09-15] MEDS ORDERED: GI COCKTAIL 30 ML PO ONE (07:39)
--- OUTSIDE RECORDS SUMMARY | 2017-09-15 07:58 | External Medical Summary | Referral Summary ---
:1960 Author Organization [facility] [address] [place] [address] Care Team Providers Name Role Phone Gilson Singleton Primary Care Physician Encounter [facility] [id number] Date(s): 09/28/16 - 09/28/16 [facility] [address] [place] [address] Discharge Diagnosis: Chronic back pain Discharge Diagnosis: Alcoholism Discharge Diagnosis: Abnormal blood sugar Discharge Diagnosis: Acute pancreatitis Discharge Diagnosis: Cellulitis Discharge Diagnosis: Noncompliance Discharge Diagnosis: Morbid obesity Discharge Diagnosis: Benign essential hypertension Discharge Diagnosis: Breast cancer Discharge Disposition: 01-Home or Self Care Attending Physician: Gilson Singleton MD Admitting Physician: Gilson Singleton MD Vital Signs Most recent to oldest [Reference Range]: 1 Blood Pressure [90-140/60-90 mmHg] 130/90 mmHg (09/28/16 4:25 PM) Problem List Condition Effective Dates Status Health Status Informant Alcoholism(Confirmed) Active Benign essential Active hypertension(Confirmed) Abnormal blood sugar(Confirmed) Active Chronic back pain(Confirmed) Active Chronic pain disorder(Confirmed) Active Noncompliance(Confirmed) Active Abdominal hernia(Confirmed) Active Left hip pain(Confirmed) Active History of bilateral breast Active implants(Confirmed) H/O bilateral mastectomy(Confirmed) Active Chronic knee pain(Confirmed) Active Breast cancer(Confirmed) Active Menometrorrhagia(Confirmed) Active Morbid obesity(Confirmed) Active patient Tobacco user(Confirmed) Active patient Allergies, Adverse Reactions, Alerts No Known Allergies Medications amitriptyline 75 mg oral tablet 75 mg 1 tabs, Oral, Bedtime (once a day), # 30 tabs, 0 Refill(s), Pharmacy: [id number], 1 tabs Oral Bedtime (once a day) Start Date: 09/21/16 Status: Orderedatenolol 25 mg oral tablet See Instructions, TAKE 1 TABLET BY MOUTH DAILY, # 30 tabs, eRx: [facility] [id number], TAKE 1 TABLET BY MOUTH DAILY Start Date: 09/07/16 Status: Orderedcitalopram 20 mg oral tablet See Instructions, TAKE 1 TABLET BY MOUTH DAILY, # 30 tabs, eRx: [facility] [id number], TAKE 1 TABLET BY MOUTH DAILY Start Date: 09/07/16 Status: OrderedcloNIDine 0.1 mg oral tablet mg tabs, Oral, TID, 0 Refill(s) Start Date: 09/21/16 Status: OrderedfentaNYL Topical, 0 Refill(s) Start Date: 09/21/16 Status: OrderedKeflex 250 mg oral capsule 250 mg 1 caps, Oral, QID, X 10 days, # 40 caps, 0 Refill(s), Pharmacy: [id number], 1caps Oral QID,x10 days Start Date: 09/21/16 Stop Date: 10/01/16 Status: OrderedLasix 20 mg oral tablet 20 mg 1 tabs, Oral, Daily, # 14 tabs, 0 Refill(s), Pharmacy: [id number], 1 tabs OralDaily Start Date: 09/21/16 Status: Orderedmethadone 10 mg oral tablet See Instructions, 2 tabs with bkfst, 2 tabs with lunch, and 3 tabs with supper. Must last 7 days, # 49 tabs, 0 Refill(s) Start Date: 09/21/16 Status: OrderedNorvasc 5 mg oral tablet 5 mg 1 tabs, Oral, BID, # 60 tabs, 0 Refill(s), Pharmacy: [facility], 1 tabs Oral BID Start Date: 06/14/15 Status: OrderedoxyCODONE 5 mg oral tablet 1-2 tabs, Oral, [...] Patient Education Author: Gilson Singleton MD Date: 09/28 Musculoskeletal Back Pain, Adult Back pain is [...] stressful on your back to sit or cash posting representative one place for long periods of time. Do not sit, drive, or cash posting representative one place for more than 30 minutes [...] helpful. Your health care provider may prescribe muscl e relaxant drugs.These medicines help dull your pain [...] Released: 10/18/2006 Document Revised: 11/08/2015 Document Reviewed: 02/19/2015 [employer] Patient Education 2016 [employer]. Preventive Medicine Back Exercises Back exercises help [...] floor. Take at least 2 to 3 second s for each sit-up. Do not do sit-ups [...] Released: 11/25/2005 Document Revised: 01/09/2013 Document Reviewed: 12/12/2015 [employer] Patient Education 2016 [employer] No follow up information was provided. Extracted from: Title: Office Visit Note Author: Gilson Singleton MD Date: 09/28/16 Assessment/Plan Abnormal blood sugar This issue was reviewed, appears stable, and current therapy continued except as mentioned. Appropriate lab was reviewed from the most recent appropriate entry and lab was order ed if needed in the cpoe/nursing orders, and [...] now. Ordered: Office Visit Level 5 Est 77710 [1] Alcoholism The patient's issue is nearly or completely resolved. There is no further issues or testing desired by them at this time. She reports that was a brief binge and is not and will not repe at her drinking. UDS may be required in [...] screeningmay be required at any time for con tinuation. Patient is agreeable. [facility] report reviewed. Fentanyl is stopped and methadone was given by Tiffany from 09/14 for 20 days. Chronic back pain I had d/w Dr. Singleton about refilling the pt's meds today. He agreed to fill only for 1 week, then had to have appt with him. I went ahead andprinted off the scripts for methadone and oxycodone a nd handed to pt in clinic. Unfortunately, we received a call from the pharmacist shortly after she left, and was told that she had just filled methadone #60 on 09/14. D/w pharmacist NOT to fill methadon e or oxycodone. Pt is scheduled to RTC on 09/[address] Singleton. Ordered: methadone, See Instructions, 2 tabs with bkfst, 2 tabs with lunch, and 3 tabs with supper. Must last 7 days, # 49 tabs, 0 Refill(s) oxyCODONE, 1-2 tabs, Oral, q6hr, as needed for pain, # 10 tabs, 0 Refill(s), #30 MUST LAST 15 DAYS Office Visit Level 5 Est 50324 [2] Ordered: oxyCODONE, 1-2 tabs, Oral, q6hr, as needed for pain, Fifteen tabs must last 7 days., # 15 tabs, 0 Refill(s) Morbid obesity Diet and exercise as tolerated and feasible. Consider medication when interested. Noncompliance See above.
--- OUTSIDE RECORDS SUMMARY | 2017-09-15 07:58 | External Medical Summary | Summary of Care ---
:1960 Author Name Felisha Basurto M.D. Address Unavailable Unavailable , Care Team Providers Name Role Phone Felisha Basurto M.D. Unavailable Unavailable Cheyenne Singleton Unavailable Unavailable Unavailable Unavailable Unavailable Functional Status Functional Status Health Issues Name Dates Details Functional status health issues are not documented Status: Cognitive Status Health Issues Name Dates Details Cognitive status health issues [...] Dates Details Immunizations not documented Social History Smoking Status Name Dates Details Unknown if ever smoked Vital Signs Date Test Result Details No Known Vitals to report Results Date Description Value Details 30-Sep-2016 11:11 PROTIME PANEL 7000 PROTIME 14.4 secs Range: 12.0-14.9 INR 1.13 Plan of Care Name Dates Details Planned Observations Planned Goals not documented Planned Encounters Appointment; Provider: Alban Basurto M.D. On 05-Oct-2016 12:00 Interventions Provided Labs/Procedures/ImagingPROTIME PANEL 7000; Done: Sep 30 2016 9:24AM Instructions Name Dates Details Instructions not documented Encounters Appointment; Alban Basurto M.D. On 30-Sep-2016 Encounter Diagnosis: Problem not documented 08:30
--- OUTSIDE RECORDS SUMMARY | 2017-09-15 08:01 | External Medical Summary | Continuity of Care Document ---
:1960 Author Organization [facility] Address [address] [place], [place] [id number] Phone Care Team Providers Name Role Phone Gilson Esparza MD Unavailable Unavailable Allergies, Adverse Reactions, Alerts Substance Reaction Severity Status clarithromycin Unknown Active levofloxacin Unknown Active Penicillins swelling Unknown Active Medications Medication Instructions Dosage Effective Dates Status Comments (start - stop) atenolol 50 mg tablet take 1 tablet by oral 50 MG - Active route every day Problems Condition Effective Dates (start - stop) Clinical Status Menorrhagia Menorrhagia Dysfunctional Uterine Bleeding Dysfunctional Uterine Bleeding Essential (primary) hypertension Postmenopausal Bleeding Pelvic and perineal pain Menorrhagia Postmenopausal Bleeding Postmenopausal Bleeding - Hypertension - Active Arthritis Unspecified Active Procedures Procedure Date Unknown Results Test Name Date and Time Measure Units Reference Range Abnormal Flag Comments Unknown Advance Directives Directive Yes / No Effective Date File Name Unknown Encounters Encounter Practice Location Reason(s) Diagnoses Date Provider Care Team Description For Visit [facility] [facility] Angel. [facility], [address] [place], [id number], , [place]. [place] tel: [phone] Rhonda Sanchez MenorrhagiaMenorr Nicanor Referring In [facility] Zaira. Provider: danyel Ken Uterine [address] BleedingDysfuncti Medical [place] [address], [address], [facility] [address], [facility] [place], [address], [place] , Daniel [facility] [address], [place], tel:[phone] [place], , [place]. [id number]. tel: tel:[phone] Rhonda Sanchez MenorrhagiaPostme Nicanor Referring In Womens nopausal Bleeding Zaira. Provider: Yoselin GARCIA, [address] Medical [place] [address], [address], [address], [facility], [address], [place] [id number], [facility] [place], tel:[phone] [place], , [place]. [id number]. tel: tel:[phone] Rhonda Sanchez Postmenopausal Dec- Nicanor Referring In Womens Ultrasound Bleeding - Zaira. Provider: Yoselin GARCIA, [address] [place] [address], [address], [address], [facility], [address], [place] [id number], [facility], [place], tel:[phone] [place], , [place] [id number]. tel: tel:[phone] Rhonda Sanchez Essential Nicanor Referring In Womens (primary) Zaira. Provider: Yoselin GARCIA, hypertensionPostm [address] enopausal Medical [place] [address], [address], [facility] [address] [place], and perineal pain , [facility], [address], [place] [id number], [facility], [place], tel:[phone] [place], , [place]. [id number]. tel: tel:[phone] Family History Family Member Diagnosis Age At Onset Paternal Grandfather Diabetes Father Hypertension Mother Osteoporosis Father Prostate Cancer Mother Breast Cancer Father Stroke Mother Hypertension Maternal Grandmother Breast Cancer Paternal Grandmother Breast Cancer Maternal Grandmother Colon Cancer Immunizations Vaccine Date Status Comments Unknown Payers Payer name Insurance type Covered constitution party ID Authorization(s) Medicare MB [id number] [facility] [id number] Social History Type Description Quantity Date Captured Unknown Vital Signs Date / Height Weight BMI Pulse Blood Temperature Respiratory Body Head BMI Time: Rate Pressure Rate Surface Circumference percentile Area Unknown Chief Complaint And Reason For Visit Unknown Chief Complaint And Reason For Visit Reason For Referral Reason For Referral Unknown Plan Of Care Date Type Action Status Goal Tobacco cessation counseling completed Goal Tobacco cessation counseling completed Future Order: Radiology Order Pelvic Ultrasound ([id number]) Ordered Date Type Problem Goal Intervention Status Start Date Unknown. History Of Present Illness Encounter Date Complaint History Of Present Illness This patient has no known history of present illness Functional Status Encounter Date Functional Assessment Cognitive Assessment Unknown Medications Administered Medication Instructions Dosage Effective Dates (start - stop) Status Comments Drug Treatment Unknown Instructions Date Instruction Additional Information Giving encouragement to exercise Related to Body mass index 40.0- 44.9 Giving encouragement to exercise Related to Body mass index 40.0- 44.9
--- OUTSIDE RECORDS SUMMARY | 2017-09-15 08:04 | External Medical Summary ---
:1960 Author Name GENERATED, SYSTEM Care Team Providers Name Role Phone UNASSIGNED DOCTOR MD GRAEME RILEY Primary Care Provider [phone] Reason For Visit Reason for Visit from 09/07/2016 2:00 AM:Pt Stated Reason for Adm : Abdominal pain Chief Complaint ACUTE PANCREATITIS Social History Social History from 09/14/2016 1:36 PM:Tobacco Use? : Light Tobacco SmokerSocial History from 09/07/2016 2:00 AM:Tobacco Use? : Light Tobacco Smoker Functional Status Functional Status from 09/14/2016 8:45 AM:LOC : AlertOriented To : Person,Place, TimeWeight Bearing Status : FullAssist Level : Partial# Assists : 1Functional Status from 09/13/2016 7:25 PM:LOC : AlertOriented To : Person,Place,Time, EventWeight Bearing Status : FullAssist Level : Independent# Assists : 1Functional Status from 09/13/2016 8:00 AM:LOC : AlertOriented To : Person,Place ,TimeWeight Bearing Status : FullAssist Level : Partial# Assists : 1Functional Status from 09/12/2016 9:10 PM:LOC : AlertOriented To : Person,Place,Time, EventWeight Bearing Status : FullAssist Level : Partial# Assists : 1Functional Status from 09/12/2016 7:55 AM:LOC : AlertOriented To : Person,Place,Time, EventWeight Bearing Status : FullAssist Level : Partial# Assists : 1Functional Status from 09/11/2016 9:00 PM:LOC : AlertOriented To : Person,Place,Time, EventWeight Bearing Status : FullAssist Level : Independent# Assists : 1Functional Status from 09/11/2016 10:47 AM:LOC : AlertOriented To : Person, Place,Time,EventWeight Bearing Status : FullAssist Level : Partial# Assists : 1Functional Status from 09/10/2016 8:40 PM:LOC : AlertOriented To : Person,Place ,Time,EventWeight Bearing Status : FullAssist Level : Partial# Assists : 1Functional Status from 09/10/2016 10:45 AM:LOC : AlertOriented To : Person, Place,Time,EventWeight Bearing Status : FullAssist Level : Independent# Assists : IndependentFunctional Status from 09/09/2016 8:03 PM:LOC : AlertOriented To : Person,Place,Time,EventWeight Bearing Status : FullAssist Level : Partial# Assists : 1Functional Status from 09/09/2016 8:00 AM:Weight Bearing Status : FullAssist Level : Partial# Assists : 1Functional Status from 09/08/2016 10:45 PM :LOC : AlertOriented To : Person,Place,EventWeight Bearing Status : FullAssist Level : Partial# Assists : 1Functional Status from 09/08/2016 8:41 AM:LOC : AlertOriented To : Person,Place,Time,EventWeight Bearing Status : FullAssist Level : Partial# Assists : 1Functional Status from 09/07/2016 8:10 PM:LOC : AlertOriented To : Person,Place,TimeWeight Bearing Status : FullAssist Level : Partial# Assists : 1Functional Status from 09/07/2016 9:39 AM:LOC : AlertOriented To : Person,Place,Time,EventWeight Bearing Status : FullAssist Level : Partial# Assists : 1Functional Status from 09/07/2016 2:00 AM:LOC : AlertOriented To : Person,Place,Time,EventWeight Bearing Status : FullAssist Level : Partial# Assists : 1 Vital Signs Hospital Vital Signs from 09/14/2016 2:49 PM:Height : 6/1 ft,inTemperature : 99.1 FPulse : 86Respirations : 18BP : 171/77Hospital Vital Signs from 2015 10:30 AM:Height : 6/1 ft,inTemperature : 97.6 FPulse : 82Respirations : 18BP : 138/70Hospital Vital Signs from 09/14/2016 7:38 AM:Height : 6/1 ft, inTemperature : 98.1 FPulse : 84Respirations : 19BP : 176/79Hospital Vital Signs from 09/14/2016 5:29 AM:Weight : 146.4/ kgHeight : 6/1 ft,inHospital Vital Signs from 09/13/2016 10:23 PM:Height : 6/1 ft,inTemperature : 97.2 FPulse : 83Respirations : 16BP : 145/67Hospital Vital Signs from 09/13/2016 7: 24 PM:Height : 6/1 ft,inTemperature : 98.2 FPulse : 83Respirations : 18BP : 137/ 63Hospital Vital Signs from 09/13/2016 2:11 PM:Height : 6/1 ft,inTemperature : 98.3 FPulse : 83Respirations : 20BP : 145/69Hospital Vital Signs from 2015 10:21 AM:Height : 6/1 ft,inTemperature : 95.7 FPulse : 86Respirations : 20BP : 133/65Hospital Vital Signs from 09/13/2016 7:26 AM:Height : 6/1 ft, inTemperature : 96.4 FPulse : 77Respirations : 19BP : 142/66Hospital Vital Signs from 09/12/2016 10:22 PM:Height : 6/1 ft,inTemperature : 96.8 FPulse : 77Respirations : 20BP : 126/60Hospital Vital Signs from 09/12/2016 6:40 PM: Height : 6/1 ft,inTemperature : 97.2 FPulse : 85Respirations : 19BP : 144/ 79Hospital Vital Signs from 09/12/2016 2:25 PM:Height : 6/1 ft,inTemperature : 97.3 FPulse : 84Respirations : 20BP : 171/77Hospital Vital Signs from 2015 11:05 AM:Height : 6/1 ft,inTemperature : 97.47 FPulse : 83Respirations : 19BP : 169/81Hospital Vital Signs from 09/12/2016 6:30 AM:Height : 6/1 ft, inTemperature : 96.1 FPulse : 88Respirations : 18BP : 132/67Hospital Vital Signs from 09/12/2016 2:58 AM:Height : 6/1 ft,inTemperature : 95.3 FPulse : 85Respirations : 18BP : 151/69Hospital Vital Signs from 09/11/2016 10:46 PM: Height : 6/1 ft,inTemperature : 97.0 FPulse : 75Respirations : 18BP : 130/ 61Hospital Vital Signs from 09/11/2016 7:47 PM:Height : 6/1 ft,inTemperature : 97.4 FPulse : 79Respirations : 18BP : 121/58Hospital Vital Signs from 2015 2:21 PM:Height : 6/1 ft,inTemperature : 98.7 FPulse : 80Respirations : 19BP : 153/78Hospital Vital Signs from 09/11/2016 10:47 AM:Heart Rate : 80Hospital Vital Signs from 09/11/2016 9:57 AM:Height : 6/1 ft,inTemperature : 98.4 FPulse : 83Respirations : 20BP : 123/64Hospital Vital Signs from 2015 9:52 AM:Weight : 144.0/ kgHeight : 6/1 ft,inHospital Vital Signs from 09/11 7:00 AM:Weight : 144.0/ kgHeight : 6/1 ft,inHospital Vital Signs from 09/2016 5:10 AM:Height : 6/1 ft,inTemperature : 97.2 FPulse : 87Respirations : 20BP : 161/72Hospital Vital Signs from 09/10/2016 10:35 PM:Height : 6/1 ft, inTemperature : 97.0 FPulse : 80Respirations : 16BP : 143/64Hospital Vital Signs from 09/10/2016 7:15 PM:Height : 6/1 ft,inTemperature : 96.4 FPulse : 82Respirations : 22BP : 133/68Hospital Vital Signs from 09/10/2016 3:50 PM: Height : 6/1 ft,inTemperature : 97.7 FPulse : 92Respirations : 22BP : 184/ 72Hospital Vital Signs from 09/10/2016 11:54 AM:Height : 6/1 ft,inTemperature : 96.9 FPulse : 85Respirations : 20BP : 134/91Hospital Vital Signs from 2015 6:59 AM:Height : 6/1 ft,inTemperature : 96.6 FPulse : 87Respirations : 20BP : 144/79Hospital Vital Signs from 09/10/2016 6:34 AM:Weight : 141.7/ kgHeight : 6/1 ft,inHospital Vital Signs from 09/09/2016 11:00 PM:Height : 6/1 ft ,inTemperature : 96.5 FPulse : 78Respirations : 20BP : 166/97Hospital Vital Signs from 09/09/2016 7:00 PM:Height : 6/1 ft,inTemperature : 98.4 FPulse : 82Respirations : 20BP : 155/75Hospital Vital Signs from 09/09/2016 3:04 PM: Weight : 140.2/ kgHeight : 6/1 ft,inHospital Vital Signs from 09/09/2016 2:19 PM: Height : 6/1 ft,inTemperature : 98.8 FPulse : 84Respirations : 19BP : 142/ 89Hospital Vital Signs from 09/09/2016 1:38 PM:Height : 6/1 ft,inTemperature : 98.9 FPulse : 85Respirations : 20BP : 140/64Hospital Vital Signs from 09/09/2016 10:44 AM:Height : 6/1 ft,inTemperature : 98.2 FPulse : 98Respirations : 19BP : 182/84Hospital Vital Signs from 09/09/2016 9:17 AM:Height : 6/1 ft,inBP : 198/ 88Hospital Vital Signs from 09/09/2016 7:37 AM:Height : 6/1 ft,inTemperature : 97.1 FPulse : 98Respirations : 18BP : 216/96Hospital Vital Signs from 09/09/2016 6:15 AM:Weight : 140.2/ kgHeight : 6/1 ft,inHospital Vital Signs from 09/09/2016 3:55 AM:Height : 6/1 ft,inPulse : 90Respirations : 22BP : 226/105Hospital Vital Signs from 09/09/2016 2:49 AM:Height : 6/1 ft,inTemperature : 97.0 FPulse : 91Respirations : 24BP : 225/111Hospital Vital Signs from 09/08/2016 10:17 PM: Height : 6/1 ft,inTemperature : 95.4 FPulse : 90Respirations : 24BP : 218/ 110Hospital Vital Signs from 09/08/2016 6:24 PM:Height : 6/1 ft,inTemperature : 98.8 FPulse : 95Respirations : 19BP : 202/95Hospital Vital Signs from 09/08/2016 4:22 PM:Height : 6/1 ft,inBP : 197/91Hospital Vital Signs from 09/08/2016 2:34 PM :Height : 6/1 ft,inTemperature : 97.7 FPulse : 94Respirations : 18BP : 208/ 99Hospital Vital Signs from 09/08/2016 11:19 AM:Height : 6/1 ft,inTemperature : 97.8 FPulse : 90Respirations : 20BP : 188/86Hospital Vital Signs from 09/08/2016 7:32 AM:Height : 6/1 ft,inTemperature : 96.3 FPulse : 91Respirations : 22BP : 142/79Hospital Vital Signs from 09/08/2016 3:50 AM:Height : 6/1 ft,inTemperature : 96.2 FPulse : 90Respirations : 22BP : 208/102Hospital Vital Signs from 2015 10:51 PM:Height : 6/1 ft,inTemperature : 98.0 FPulse : 90Respirations : 20BP : 198/85Hospital Vital Signs from 09/07/2016 7:10 PM:Height : 6/1 ft, inTemperature : 96.8 FPulse : 88Respirations : 20BP : 193/67Hospital Vital Signs from 09/07/2016 2:51 PM:Height : 6/1 ft,inTemperature : 97.5 FPulse : 94Respirations : 20BP : 197/93Hospital Vital Signs from 09/07/2016 9:59 AM: Height : 6/1 ft,inTemperature : 98.7 FPulse : 92Respirations : 20BP : 197/ 86Hospital Vital Signs from 09/07/2016 9:39 AM:Heart Rate : 68Hospital Vital Signs from 09/07/2016 7:10 AM:Height : 6/1 ft,inTemperature : 97.7 FPulse : 88Respirations : 20BP : 190/86Hospital Vital Signs from 09/07/2016 3:34 AM: Height : 6/1 ft,inPulse : 87BP : 190/85Hospital Vital Signs from 09/07/2016 2:00 AM:Weight : 136.5/ kgHeight : 6/1 ft,inHospital Vital Signs from 09/07/2016 1:50 AM:Height : 6/1 ft,inTemperature : 97.2 FPulse : 87Respirations : 22BP : 233/102 Results Blood Gas from 09/09/2016 9:55 AM*ARTERIAL PH7.452 H (7.350-7.450 ) *ARTERIAL HW6080.3 MM HG L (35.0-45.0 MM HG) *ART. PO277 MM HG L (80-95 MM HG) *ART. TOTAL CO217.0 mmol/L L (20.0-30.0 mmol/L) *ART. KMWLPTIGJAA75.5 MEQ/L (19.0-29.0 MEQ/L) *ART. BASE EXCESS-2.8 L (-2.5-2.5 ) ART. O2 FTQMLWFSHB60.2 % (91.0-97.0 %) *PATIENT ATMOSPHEREROOM AIR *SPECIMEN SITEARTERIALChemistry from 09/13/2016 5:47 KASXYLHM095 MMOL/L (136- 145 MMOL/L) POTASSIUM3.4 MMOL/L L (3.5-5.1 MMOL/L) DFACZYDU757 MMOL/L (98-107 MMOL/L) BMR360.4 MMOL/L (21.0-32.0 MMOL/L) *ANION GAP10.6 MMOL/L (8.0-16.0 MMOL/L) BUN10 MG/DL (7-18 MG/DL) CREATININE1.06 MG/DL H (0.55-1.02 MG/DL) *BUN/CREATININE RATIO9.4 (9.1-17.0 ) OYOVJQG50 MG/DL (65-99 MG/DL) *GFR EST NON AFR NLWYXWZV51 ML/MIN *GFR EST AFR AMER69 ML/MIN CALCIUM8.6 MG/DL (8.5-10.1 MG/DL) ALBUMIN1.7 GM/DL L (3.4-5.0 GM/DL) PHOSPHORUS3.3 MG/DL (2.6-4.7 MG/DL) CBZWBK848 U/L (73-393 U/L)Chemistry from 09/12/2016 5:53 SVRWVZJH659 MMOL/L L ( 136-145 MMOL/L) POTASSIUM3.1 MMOL/L L (3.5-5.1 MMOL/L) KVSEGAAW788 MMOL/L (98-107 MMOL/L) JWJ358.8 MMOL/L (21.0-32.0 MMOL/L) *ANION GAP7.2 MMOL/L L (8.0-16.0 MMOL/L) BUN10 MG/DL (7-18 MG/DL) CREATININE1.12 MG/DL H (0.55-1.02 MG/DL) *BUN/CREATININE RATIO8.9 L (9.1-17.0 ) YOCVHQD02 MG/DL (65-99 MG/DL) *GFR EST NON AFR ORYXPYOK86 ML/MIN *GFR EST AFR AMER64 ML/MIN CALCIUM8.5 MG/DL (8.5-10.1 MG/DL) BILIRUBIN TOTAL0.80 MG/DL (0.20-1.00 MG/DL) TOTAL PROTEIN6.2 GM/DL L (6.4-8.2 GM/DL) ALBUMIN1.7 GM/DL L (3.4-5.0 GM/DL) *GLOBULIN4.5 GM/DL H (2.3-3.5 GM/DL) *A/G RATIO0.4 MG/DL L (1.5-2.2 MG/DL) ALK CVOD015 U/L (46-116 U/L) ALT (SGPT)18 U/L (16-63 U/L) AST (SGOT)28 U/L (15-37 U/L)Chemistry from 09/11/2016 5:40 JKITJBPG925 MMOL/L L (136-145 MMOL/L) POTASSIUM3.4 MMOL/L L (3.5-5.1 MMOL/L) BOFACKDR216 MMOL/L (98-107 MMOL/L) NCR556.5 MMOL/L (21.0-32.0 MMOL/L) *ANION GAP7.5 MMOL/L L (8.0-16.0 MMOL/L) BUN11 MG/DL (7-18 MG/DL) CREATININE1.20 MG/DL H (0.55-1.02 MG/DL) *BUN/CREATININE RATIO9.2 (9.1-17.0 ) LCTJXMU06 MG/DL (65-99 MG/DL) *GFR EST NON AFR GPNQKPXD81 ML/MIN *GFR EST AFR AMER59 ML/MIN CALCIUM8.2 MG/DL L (8.5-10.1 MG/DL) BILIRUBIN TOTAL0.80 MG/DL (0.20-1.00 MG/DL) TOTAL PROTEIN6.2 GM/DL L (6.4-8.2 GM/DL) ALBUMIN1.8 GM/DL L (3.4-5.0 GM/DL) *GLOBULIN4.4 GM/DL H (2.3-3.5 GM/DL) *A/G RATIO0.4 MG/DL L (1.5-2.2 MG/DL) ALK PHOS93 U/L (46-116 U/L) ALT (SGPT)19 U/L (16-63 U/L) AST (SGOT)25 U/L (15-37 U/L) XWEWQM863 U/L (73-393 U/L)Chemistry from 09/10/2016 6:45 DJNQYXFS203 MMOL/L L ( 136-145 MMOL/L) POTASSIUM3.9 MMOL/L (3.5-5.1 MMOL/L) LZPLTZGL413 MMOL/L (98-107 MMOL/L) ZWH854.1 MMOL/L (21.0-32.0 MMOL/L) *ANION GAP7.9 MMOL/L L (8.0-16.0 MMOL/L) BUN9 MG/DL (7-18 MG/DL) CREATININE1.06 MG/DL H (0.55-1.02 MG/DL) *BUN/CREATININE RATIO8.5 L (9.1-17.0 ) HJULGWW50 MG/DL (65-99 MG/DL) *GFR EST NON AFR YTEKTLZV43 ML/MIN *GFR EST AFR AMER69 ML/MIN CALCIUM8.2 MG/DL L (8.5-10.1 MG/DL) BILIRUBIN TOTAL0.90 MG/DL (0.20-1.00 MG/DL) TOTAL PROTEIN6.4 GM/DL (6.4-8.2 GM/DL) ALBUMIN2.0 GM/DL L (3.4-5.0 GM/DL) *GLOBULIN4.4 GM/DL H (2.3-3.5 GM/DL) *A/G RATIO0.5 MG/DL L (1.5-2.2 MG/DL) ALK PHOS89 U/L (46-116 U/L) ALT (SGPT)19 U/L (16-63 U/L) AST (SGOT)23 U/L (15-37 U/L)Chemistry from 09/09/2016 6:24 YIRXFKGD043 MMOL/L L ( 136-145 MMOL/L) POTASSIUM3.7 MMOL/L (3.5-5.1 MMOL/L) JUVFBOHM658 MMOL/L (98-107 MMOL/L) AVR243.5 MMOL/L (21.0-32.0 MMOL/L) *ANION GAP8.5 MMOL/L (8.0-16.0 MMOL/L) BUN7 MG/DL (7-18 MG/DL) CREATININE1.11 MG/DL H (0.55-1.02 MG/DL) *BUN/CREATININE RATIO6.3 L (9.1-17.0 ) LFMMVUP57 MG/DL (65-99 MG/DL) *GFR EST NON AFR XEVYTTDU37 ML/MIN *GFR EST AFR AMER65 ML/MIN CALCIUM8.6 MG/DL (8.5-10.1 MG/DL) BILIRUBIN TOTAL1.20 MG/DL H (0.20-1.00 MG/DL) TOTAL PROTEIN7.0 GM/DL (6.4-8.2 GM/DL) ALBUMIN2.5 GM/DL L (3.4-5.0 GM/DL) *GLOBULIN4.5 GM/DL H (2.3-3.5 GM/DL) *A/G RATIO0.6 MG/DL L (1.5-2.2 MG/DL) ALK PHOS91 U/L (46-116 U/L) ALT (SGPT)25 U/L (16-63 U/L) AST (SGOT)28 U/L (15-37 U/L) LWNAMT4199 U/L H (73-393 U/L) VIQ018 U/L H (81-234 U/L)Chemistry from 09/08/2016 7:36 XHVMKHHL303 MMOL/L (136- 145 MMOL/L) POTASSIUM4.2 MMOL/L (3.5-5.1 MMOL/L) RLZSVDKC379 MMOL/L (98-107 MMOL/L) FUM299.0 MMOL/L (21.0-32.0 MMOL/L) *ANION GAP10.0 MMOL/L (8.0-16.0 MMOL/L) BUN8 MG/DL (7-18 MG/DL) CREATININE1.03 MG/DL H (0.55-1.02 MG/DL) *BUN/CREATININE RATIO7.8 L (9.1-17.0 ) LGWUTDK12 MG/DL (65-99 MG/DL) *GFR EST NON AFR NOFTPYQR17 ML/MIN *GFR EST AFR AMER71 ML/MIN CALCIUM8.7 MG/DL (8.5-10.1 MG/DL) BILIRUBIN TOTAL1.00 MG/DL (0.20-1.00 MG/DL) TOTAL PROTEIN7.2 GM/DL (6.4-8.2 GM/DL) ALBUMIN2.7 GM/DL L (3.4-5.0 GM/DL) *GLOBULIN4.5 GM/DL H (2.3-3.5 GM/DL) *A/G RATIO0.6 MG/DL L (1.5-2.2 MG/DL) ALK PHOS96 U/L (46-116 U/L) ALT (SGPT)32 U/L (16-63 U/L) AST (SGOT)37 U/L (15-37 U/L)Chemistry from 09/07/2016 9:36 AMALCOHOL<0.003 GM/ DLChemistry from 09/07/2016 5:32 WJWOORHO055 MMOL/L (136-145 MMOL/L) POTASSIUM4.0 MMOL/L (3.5-5.1 MMOL/L) GVGSQTER369 MMOL/L (98-107 MMOL/L) WZR203.6 MMOL/L (21.0-32.0 MMOL/L) *ANION GAP7.4 MMOL/L L (8.0-16.0 MMOL/L) BUN9 MG/DL (7-18 MG/DL) CREATININE1.23 MG/DL H (0.55-1.02 MG/DL) *BUN/CREATININE RATIO7.3 L (9.1-17.0 ) HXDFVXX593 MG/DL H (65-99 MG/DL) CALCIUM8.8 MG/DL (8.5-10.1 MG/DL) BILIRUBIN TOTAL0.60 MG/DL (0.20-1.00 MG/DL) TOTAL PROTEIN7.1 GM/DL (6.4-8.2 GM/DL) ALBUMIN2.9 GM/DL L (3.4-5.0 GM/DL) *GLOBULIN4.2 GM/DL H (2.3-3.5 GM/DL) *A/G RATIO0.7 MG/DL L (1.5-2.2 MG/DL) ALK QDFS960 U/L (46-116 U/L) ALT (SGPT)46 U/L (16-63 U/L) AST (SGOT)68 U/L H (15-37 U/L) BFQKNA5158 U/L H (73-393 U/L) KOHODNOTAGG908 MG/DL (50-199 MG/DL) ITYHYXLBBONYB62 MG/DL (0-149 MG/DL) HDL QBXRFMXWMPP28 MG/DL H (40-60 MG/DL) LDL (CALCULATED GYHU454 MG/DL H (0-99 MG/DL)Hematology from 09/12/2016 5:53 AMWBC14.1 X10e3/UL H (3.6-11.2 X10e3/UL) RBC3.60 X10e6/UL L (3.63-4.92 X10e6/UL) SZDFDRBHZG22.7 G/DL (11.0-14.3 G/DL) WTKFNELTME63.1 % (31.2-41.9 %) *MCV97.5 FL (79.0-98.0 FL) *MCH32.4 PG (27.0-33.0 PG) *MCHC33.3 G/DL (32.0-36.0 G/DL) *RDW14.4 % (12.3-17.0 %) *RDWSD49.4 H (37.1-47.8 ) YIVHQDJM923 X10e3/UL L (159-386 X10e3/UL) *MPV9.7 FL (7.4-10.4 FL) *MANUAL DIFFPERFORMED SEGS71.0 % *BANDS15.0 % *LYMPHOCYTES4.0 % *MONOCYTES6.0 % *EOSINOPHILS2.0 % *BASOPHILS0.0 % METAMYELOCYTES2.0 % *ABSOLUTE BAMHIDMYJHH03.41 X10e3/UL H (1.80-7.80 X10e3/UL) *ABSOLUTE LYMPHOCYTES0.56 X10e3/UL L (1.00-3.00 X10e3/UL) *ABSOLUTE MONOCYTES0.85 X10e3/UL (0.30-1.00 X10e3/UL) *ABSOLUTE EOSINOPHILS0.28 X10e3/UL (0.00-0.50 X10e3/UL) *ABSOLUTE BASOPHILS0.00 X10e3/UL (0.00-0.20 X10e3/UL) *TOXIC GRANULATION1+ WBC VACUOLES2+Hematology from 09/11/2016 5:40 AMWBC17.0 X10e3/UL H (3.6-11.2 X10e3/UL) RBC3.85 X10e6/UL (3.63-4.92 X10e6/UL) YGGYCDNIWP08.1 G/DL (11.0-14.3 G/DL) GXQDBSHJZH50.9 % (31.2-41.9 %) *MCV98.5 FL H (79.0-98.0 FL) *MCH31.4 PG (27.0-33.0 PG) *MCHC31.9 G/DL L (32.0-36.0 G/DL) *RDW14.1 % (12.3-17.0 %) *RDWSD48.6 H (37.1-47.8 ) EJWICIWG969 X10e3/UL L (159-386 X10e3/UL) *MPV9.9 FL (7.4-10.4 FL) *MANUAL DIFFPERFORMED SEGS79.0 % *BANDS12.0 % *LYMPHOCYTES6.0 % *MONOCYTES2.0 % *EOSINOPHILS1.0 % *BASOPHILS0.0 % *ABSOLUTE OPOVWDEJJRC77.47 X10e3/UL H (1.80-7.80 X10e3/UL) *ABSOLUTE LYMPHOCYTES1.02 X10e3/UL (1.00-3.00 X10e3/UL) *ABSOLUTE MONOCYTES0.34 X10e3/UL (0.30-1.00 X10e3/UL) *ABSOLUTE EOSINOPHILS0.17 X10e3/UL (0.00-0.50 X10e3/UL) *ABSOLUTE BASOPHILS0.00 X10e3/UL (0.00-0.20 X10e3/UL)Hematology from 09/10/2016 6:45 AMWBC20.9 X10e3/UL H (3.6-11.2 X10e3/UL) RBC4.00 X10e6/UL (3.63-4.92 X10e6/UL) VTHKYCWEOW39.0 G/DL (11.0-14.3 G/DL) DIZAAUHYZM32.6 % (31.2-41.9 %) *MCV99.0 FL H (79.0-98.0 FL) *MCH32.4 PG (27.0-33.0 PG) *MCHC32.7 G/DL (32.0-36.0 G/DL) *RDW14.7 % (12.3-17.0 %) *RDWSD51.2 H (37.1-47.8 ) BLUKDCQQ837 X10e3/UL L (159-386 X10e3/UL) *MPV10.3 FL (7.4-10.4 FL) *MANUAL DIFFPERFORMED SEGS92.0 % *BANDS4.0 % *LYMPHOCYTES1.0 % *MONOCYTES1.0 % *EOSINOPHILS0.0 % *BASOPHILS0.0 % *REACTIVE LYMPHOCYTES2.0 % *ABSOLUTE HGMDNPWYOTA32.06 X10e3/UL H (1.80-7.80 X10e3/UL) *ABSOLUTE LYMPHOCYTES0.63 X10e3/UL L (1.00-3.00 X10e3/UL) *ABSOLUTE MONOCYTES0.21 X10e3/UL L (0.30-1.00 X10e3/UL) *ABSOLUTE EOSINOPHILS0.00 X10e3/UL (0.00-0.50 X10e3/UL) *ABSOLUTE BASOPHILS0.00 X10e3/UL (0.00-0.20 X10e3/UL) *POLYCHROMASIA1+ ANISOCYTOSIS3+ WBC VACUOLES1+Hematology from 09/09/2016 6:24 AMWBC23.0 X10e3/UL H (3.6-11.2 X10e3/UL) RBC4.34 X10e6/UL (3.63-4.92 X10e6/UL) JHEOOZBHCI33.0 G/DL (11.0-14.3 G/DL) IEIRGQIYYW70.7 % H (31.2-41.9 %) *MCV98.5 FL H (79.0-98.0 FL) *MCH32.3 PG (27.0-33.0 PG) *MCHC32.8 G/DL (32.0-36.0 G/DL) *RDW14.7 % (12.3-17.0 %) *RDWSD50.8 H (37.1-47.8 ) MCLFKPDZ052 X10e3/UL L (159-386 X10e3/UL) *MPV10.0 FL (7.4-10.4 FL) *MANUAL DIFFPERFORMED SEGS82.0 % *BANDS8.0 % *LYMPHOCYTES7.0 % *MONOCYTES2.0 % *EOSINOPHILS0.0 % *BASOPHILS0.0 % *REACTIVE LYMPHOCYTES1.0 % *ABSOLUTE YWUOOSSJOFJ78.70 X10e3/UL H (1.80-7.80 X10e3/UL) *ABSOLUTE LYMPHOCYTES1.84 X10e3/UL (1.00-3.00 X10e3/UL) *ABSOLUTE MONOCYTES0.46 X10e3/UL (0.30-1.00 X10e3/UL) *ABSOLUTE EOSINOPHILS0.00 X10e3/UL (0.00-0.50 X10e3/UL) *ABSOLUTE BASOPHILS0.00 X10e3/UL (0.00-0.20 X10e3/UL) *POLYCHROMASIA1+ *TOXIC GRANULATION1+Hematology from 09/08/2016 7:36 AMWBC20.8 X10e3/UL H (3.6- 11.2 X10e3/UL) RBC4.74 X10e6/UL (3.63-4.92 X10e6/UL) BPRWGHPMKH85.9 G/DL H (11.0-14.3 G/DL) YDSOFKASYK13.5 % H (31.2-41.9 %) *MCV95.9 FL (79.0-98.0 FL) *MCH31.5 PG (27.0-33.0 PG) *MCHC32.8 G/DL (32.0-36.0 G/DL) *RDW13.8 % (12.3-17.0 %) GPUPZRKS582 X10e3/UL L (159-386 X10e3/UL) *MPV9.8 FL (7.4-10.4 FL) *MANUAL DIFFPERFORMED SEGS92.0 % *BANDS5.0 % *LYMPHOCYTES2.0 % *MONOCYTES1.0 % *EOSINOPHILS0.0 % *BASOPHILS0.0 % *ABSOLUTE ERWYVUWOVHC84.18 X10e3/UL H (1.80-7.80 X10e3/UL) *ABSOLUTE LYMPHOCYTES0.42 X10e3/UL L (1.00-3.00 X10e3/UL) *ABSOLUTE MONOCYTES0.21 X10e3/UL L (0.30-1.00 X10e3/UL) *ABSOLUTE EOSINOPHILS0.00 X10e3/UL (0.00-0.50 X10e3/UL) *ABSOLUTE BASOPHILS0.00 X10e3/UL (0.00-0.20 X10e3/UL) *PLATELET SLIDE REVIEWDECREASED A (ADEQUATE )Hematology from 09/07/2016 5:32 AMWBC10.2 X10e3/UL (3.6-11.2 X10e3/UL) RBC4.25 X10e6/UL (3.63-4.92 X10e6/UL) CKGYTSSELW72.8 G/DL (11.0-14.3 G/DL) MTVLGJTGWW83.1 % (31.2-41.9 %) *MCV96.6 FL (79.0-98.0 FL) *MCH32.5 PG (27.0-33.0 PG) *MCHC33.6 G/DL (32.0-36.0 G/DL) *RDW14.0 % (12.3-17.0 %) *RDWSD47.7 (37.1-47.8 ) CXRXBHPN012 X10e3/UL (159-386 X10e3/UL) *MPV9.2 FL (7.4-10.4 FL) AUTOMATED DIFFPERFORMED SEGS87.1 % *LYMPHOCYTES7.8 % *MONOCYTES4.1 % *EOSINOPHILS0.0 % *BASOPHILS1.0 % *ABSOLUTE NEUTROPHILS8.90 X10e3/UL H (1.80-7.80 X10e3/UL) *ABSOLUTE LYMPHOCYTES0.80 X10e3/UL L (1.00-3.00 X10e3/UL) *ABSOLUTE MONOCYTES0.40 X10e3/UL (0.30-1.00 X10e3/UL) *ABSOLUTE EOSINOPHILS0.00 X10e3/UL (0.00-0.50 X10e3/UL) *ABSOLUTE BASOPHILS0.10 X10e3/UL (0.00-0.20 X10e3/UL)Urinalysis from 09/08/2016 8 :50 AM Status: Final Result URINALYSIS Specimen Number: [id number] Sample Collection Date/Time: 09/08/2016 8:50 AM Specimen Source: *URINE [place] YELLOW (STRAW/YELL/DK YELL ) *URINE APPEARANCESL CLOUDY A (CLEAR ) URINE PH7.0 (5.0-8.0 ) URINE SPECIFIC GRAVITY1.015 (<=1.005->=1.030 ) *URINE GLUCOSENEGATIVE MG/DL (NEGATIVE MG/DL) *URINE BILIRUBINNEGATIVE (NEGATIVE ) *URINE KETONESTRACE MG/DL A (NEGATIVE MG/DL) *URINE BLOODTRACE-INTACT A (NEGATIVE ) *URINE PROTEINNEGATIVE MG/DL (NEGATIVE MG/DL) *URINE UROBILINOGEN1.0 EU/DL (0.2-1.0 EU/DL) *URINE NITRITESNEGATIVE (NEGATIVE ) *URINE LEUKOCYTESNEGATIVE (NEGATIVE ) *MICROSCOPIC EXAM PERFORMEDPERFORMED *WBC URINE1-5 /HPF (0-5 /HPF) *RBC URINE1-5 /HPF A (0-1 /HPF) *SQUAMOUS EP. CELLSFEW /LPF (NEG-FEW /LPF) *MUCOUS THREADSFEW /LPF A (NEGATIVE /LPF)Coagulation from 09/14/2016 5:59 AM* PROTHROMBIN TIME12.0 SECONDS H (9.4-11.5 SECONDS) *INR1.2 H (0.9-1.1 )Coagulation from 09/13/2016 5:47 AM*PROTHROMBIN TIME12.4 SECONDS H (9.4-11.5 SECONDS) *INR1.2 H (0.9-1.1 )Coagulation from 09/12/2016 5:53 AM*PROTHROMBIN TIME12.0 SECONDS H (9.4-11.5 SECONDS) *INR1.2 H (0.9-1.1 )Coagulation from 09/11/2016 5:40 AM*PROTHROMBIN TIME12.0 SECONDS H (9.4-11.5 SECONDS) *INR1.2 H (0.9-1.1 )Coagulation from 09/10/2016 6:45 AM*PROTHROMBIN TIME12.0 SECONDS H (9.4-11.5 SECONDS) *INR1.2 H (0.9-1.1 )Coagulation from 09/09/2016 6:24 AM*PROTHROMBIN TIME12.4 SECONDS H (9.4-11.5 SECONDS) *INR1.2 H (0.9-1.1 )Coagulation from 09/08/2016 7:36 AM*PROTHROMBIN TIME11.5 SECONDS (9.4-11.5 SECONDS) *INR1.1 (0.9-1.1 )Microbiology from 09/08/2016 10:56 AMCULTURE URINE Specimen Number: [id number] Sample Collection Date/Time: 09/08/2016 10:56 AM Specimen Source: Urine Clean Catch CULTURE URINE: 10,000 cfu/ml - 50,000 cfu/ml 3 or more gram positive colony types Suggestive of colonization or contamination DX [facility] 09/12/2016 5:[facility] V[facility]WH[facility]: SOA Priors: 09/11/16 Findings: The cardiac silhouette is mildly enlarged. The pulmonary vasculature is borderline prominent. There no focal areas consolidation or pleural effusion. Impression: Mild cardiomegaly and borderline pulmonary venous congestion. Electronically signed by: Ananda Ibarra MD Dictated: 09/12/2016 08:21DX Radiology from 09/11/2016 4:43 AMCHEST 1 VIEWHistory: Shortness of breath Priors: 09/10/2016 Findings: Heart size is the upper limits normal. No acute infiltrate, pneumothorax or pleural effusions identified. Impression: No evidence of acute cardiopulmonary process. Electronically signed by: Bryan Szymanski MD Dictated: 09/11/2016 08:01DX Radiology from 09/10/2016 4:51 AMCHEST 1 VIEWHistory: Shortness of breath Priors: 09/09/2016 Findings: No acute infiltrate, pneumothorax or pleural effusions are identified. The heart size is normal. Impression: No evidence of acute cardiopulmonary process. Electronically signed by: Bryan Szymanski MD Dictated: 09/10/2016 08:46DX Radiology from 09/09/2016 5:32 AMCHEST 1 VIEWHistory : SOA Priors: 09/08/16 Findings: The cardiac silhouette is mildly enlarged. The pulmonary vasculature is within normal limits. There are no acute infiltrates or effusions. Impression: Mild cardiomegaly without acute findings. Electronically signed by: Ananda Ibarra MD Dictated: 09/09/2016 08:29DX Radiology from 09/08/2016 5:13 AMCHEST 1 VIEWHistory : Shortness of breath Priors: None Findings: No acute infiltrate, pneumothorax or pleural effusions are identified. The heart size is normal. Impression: No evidence acute cardiopulmonary process. Electronically signed by: Bryan Szymanski MD Dictated: 09/08/2016 08:29DX Radiology from 09/07/2016 3:08 PMABDOMEN (KUB) 1 VIEWHistory: Abdominal Pain diffuse . Priors: none Findings: The upper abdomen is not included on the film. No dilated loops of bowel are demonstrated. High attenuation material is noted in the urinary bladder, most consistent with excreted contrast material. There are no suspicious calcifications for Impression: Unremarkable bowel gas pattern. Electronically signed by: Ananda Ibarra MD Dictated: 09/07/2016 15:34CT Scan from 09/09/2016 10:50 AMCT ABD/PELVIS W/ CONTRASTHistory: acute pancreatitis with abd distention . Technique: [...] MD Dictated: 09/09/2016 12:39 Problems Encounter Diagnosis Acute Pain Status:Active.Acute Pancreatitis Status:Active.Chronic Pain Status: Active.Disturbance in Sleep Behavior Status:Active.Fall Risk Status: Active.Hypertensive Disorder Status:Active.Mobility Impairment Status: Active.Morbid Obesity Status:Active.Nutritional Deficiency Status:Active. Encounters Encounter Diagnosis Acute Pain Status:Active.Acute Pancreatitis Status:Active.Chronic Pain Status: Active.Disturbance in Sleep Behavior Status:Active.Fall Risk Status: Active.Hypertensive Disorder Status:Active.Mobility Impairment Status: Active.Morbid Obesity Status:Active.Nutritional Deficiency Status:Active. Plan of Care Follow-up Appointments from 09/14/2016 1:36 PM:#1 Office appointment: : Dr Basurto# 1 Date/Time : 09/30/2016 8:30 AM#2 Office appointment: : Ora Burger APRN# 2 Date/Time : 09/15/2016 10:45 AMTreatment Plan from 09/11/2016 10:40 AM:Care Management Note : Security Agent reviewed POC w/ Grace Guzman SW et interdisciplinary team during care rounds. Dr. Basurto was consulted for pain management. His consult stated that he woulddc Fentanyl Patch, Dilaudid IV et Morphine IV et transition patient to Demerol/Phenergan IM q 6 hrs et change to Brutrans patch. Pharmacy does not carry Brutrans patch. They contacted Dr. Basurto et received order to cont Fentanyl patch. Security Agent noted that patient cont to receive Dilaudid et Morphine IV overnight. Security Agent spoke w/ FELIPE Colón et updated on Dr. Basurto's consult. Will need to clarify pain medication orders. Dr. Sands will dc.Treatment Plan from 09/09/2016 11:00 AM:Care Management Note : Security Agent reviewed POC w/ Grace Guzman, JOB et interdisciplinary team during care rounds. voiced concern over patient's clinical condition. WBC et Lipase cont torise. Patient w/ increasingly symptomatic. Dr. Sands to contact GI re: concerns. May require transfer to ICU vs transfer [place] for GI specialist.Treatment Plan from 09/08/2016 12:10 PM :Care Management Note : SW'er met with patient to discuss discharge planning. Patient lives at home alone in [place]. She denies the need for any services at discharge and states her only concern is that she has an appointment tomorrow with the doctor who prescribes her methadone and if she misses it she will not be able to get it. SW'er recommended that she contact the doctor's office and explain her situation. SW'er offered to be available if needed to confirm she was in the hospital. Patient voiced understanding and stated she would contact them. She voiced no additional questions or concerns and stated that she should be able to return home without any new services or DME. SW'er informed patient that if she ever needed services, she might be able to get in home care with her Medicaid. Patient voiced understanding. SW'er provided contact information and will be available if needs arise.Treatment Plan from 09/07/2016 9 :23 AM:Care Management Note : Patient is inpatient being treated for acute pancreatitis with severe epigastric pain, lipase 1614, CT showing pancreatic inflammation. She is NPO, receiving IVF at 150 hr, pain control with Dilaudid, nausea control with Kytril, IV Hydralazine prn with BP 233/102. Meets medical necessity for inpatient. Procedures No relevant procedures performed. Immunizations INFLUEN VACC 2016-17(GLAXO) (FLUARIX 2016-17 (GLAXO)); Not Administered 2015 3:23 PM; [facility] Hospital Course Hospital Discharge Instructions How to care for yourself at home from 09/14/2016 1:36 PM:Discharge Activity : Activity as toleratedDischarge Diet : As before hospitalizationDischarge Diet: : RegularCall your doctor if: : Fever over 101 F or severe chills,Chest pain or other unexplained symptoms,Tingling or numbness develops,A sudden increase or decrease in weight,You have persistent or worsening symptoms,If you have Heart Failure and you gain 3 pounds within 1 week or your symptoms worsen. (Weigh at home tomorrow morning)Specific Discharge Teaching Instructions provided: : NoDischarge on Warfarin : No Allergies, Adverse Reactions, Alerts No Latex Allergy.No IV Contrast Allergy.No Known Drug Allergies.No Known Food Allergies.No Known Allergies. Medication It is the responsibility of the patient or patient resources representative to confirm the list of medicationswith either the patient's personal care provider or the patient's follow-up care provider to ensure the patient has an appropriate list of medications to take at home. Discharge medicationsNew medicationsmethaDONE 10 mg Tablet, Ordered By: RONDA ANDERSON MD Directions: 1 tablet oral every eight hours for PAIN amLODIPine 5 mg Tablet, Ordered By: RONDA ANDERSON MD Directions: 1 tablet oral daily for HTN fentaNYL 25 mcg/hour patch 72 hour, Ordered By: RONDA ANDERSON MD Directions: 1 each transdermal every seventy two hours Additional Instructions: REMOVE OLD PATCH BEFORE APPLYING NEW ONE cloNIDine HCl 0.1 mg Tablet, Ordered By: RONDA ANDERSON MD Directions: 1 tablet oral three times a day Continued medicationscitalopram 20 mg Tablet, Ordered By: RONDA ANDERSON MD Directions: 1 tablet oral daily Additional Instructions: TK 1 T PO D oxyCODONE 5 mg Tablet, Ordered By: LATOYA NUNES RN Directions: 1 tablet oral every six hours PRN pain atenolol 25 mg Tablet, Ordered By: LATOYA NUNES RN Directions: 1 tablet oral daily Stopped medicationsNone
--- OUTSIDE RECORDS SUMMARY | 2017-09-15 08:04 | External Medical Summary | Referral Summary ---
:1960 Author Organization [facility] Address [address] [place] [address] [place] [address] Care Team Providers Name Role Phone Gilson Singleton Primary Care Physician Encounter VC Date(s): 04/06/16 - 04/06/16 [facility] [place] [place] [address] [place] Discharge Disposition: 01-Home or Self Care Attending Physician: Gilson Singleton MD Admitting Physician: Gilson Singleton MD Vital Signs Most recent to oldest [Reference Range]: 1 Blood Pressure [90-140/60-90 mmHg] 160/90 mmHg *HI* (04/06/16 4:06 PM) Problem List Condition Effective Dates Status Health Status Informant Benign essential Active hypertension(Confirmed) Abnormal blood sugar(Confirmed) Active Chronic back pain(Confirmed) Active Chronic pain disorder(Confirmed) Active Abdominal hernia(Confirmed) Active Left hip pain(Confirmed) [...] tabs, 0 Refill(s) Start Date: 04/12/15 Status: Orderedatenolol 25 mg oral tablet 25 mg 1 tabs, Oral, Daily, # 30 tabs, 0 Refill(s), Pharmacy: [id number], 1 tabs OralDaily Start Date: 11/20/15 Status: OrderedCeleXA 20 mg oral tablet 20 mg 1 tabs, Oral, Daily, # 30 tabs, 0 Refill(s), Pharmacy: [id number], 1 tabs OralDaily Start Date: 01/02/16 Status: Orderedmethadone 10 mg oral tablet See Instructions, 2 tabs with bkfst, 2 tabs with lunch, and 3 tabs with supper. Must last 14 Days Fill 04/06/16., # 98 tabs, 0 Refill(s) Start Date: 04/06/16 Status: OrderedNorvasc 5 mg oral tablet 5 mg 1 tabs, Oral, BID, # 60 tabs, 0 Refill(s), Pharmacy: [facility], 1 tabs Oral BID Start Date: 06/14/15 Status: OrderedoxyCODONE 5 mg oral tablet 1-2 tabs, Oral, q6hr, as needed for pain, May fill q 14 days. Fill today ., # 30 tabs, 0 Refill(s), #30 MUST LAST 15 DAYS Start Date: 04/06/16 Status: OrderedVictoza 18 mg/3 mL subcutaneous solution 0.6 mg, SubCutaneous, Daily, # 3 mL, 0 Refill(s), Pharmacy: [id number], 0.6 mg SubCutaneous Daily,x30 days Start Date: 04/06/16 Stop Date: 05/06/16 Status: Ordered Results Hematology Most recent to oldest [Reference Range]: 1 WBC [4.8-10.8 10*3/uL] 10.2 10*3/uL (04/06/16 4:45 PM) RBC [4.00-5.20] 4.42 (04/06/16 4:45 PM) Hgb [12.0-16.0 gm/dL] 14.2 gm/dL (04/06/16 4:45 PM) Hct [37.0-47.0 %] 41.0 % (04/06/16 4:45 PM) MCV [82.0-99.0 fL] 92.8 fL (04/06/16 4:45 PM) MCH [27.0-32.0 pg] 32.1 pg *HI* (04/06/16 4:45 PM) MCHC [32.0-36.0 gm/dL] 34.6 gm/dL (04/06/16 4:45 PM) RDW [11.5-14.5 %] 13.4 % (04/06/16 4:45 PM) Platelet [150-400 10*3/uL] 228 10*3/uL (04/06/16 4:45 PM) MPV [8.8-14.8 fL] 11.3 fL (04/06/16 4:45 PM) Immature Granulocytes [0.0-1.0 %] 0.3 % (04/06/16 4:45 PM) Neutrophils [51-75 %] 67 % (04/06/16 4:45 PM) Lymphocytes [20-46 %] 23 % (04/06/16 4:45 PM) Monocytes [4-11 %] 8 % (04/06/16 4:45 PM) Eosinophils [0-4 %] 2 % (04/06/16 4:45 PM) Basophils [0-2 %] 1 % (04/06/16 4:45 PM) Neutro Absolute [1.90-7.00 10*3] 6.85 10*3 (04/06/16 4:45 PM) Lymph Absolute [0.80-3.30 10*3] 2.29 10*3 (04/06/16 4:45 PM) Piatt Absolute [0.30-1.00 10*3] 0.80 10*3 (04/06/16 4:45 PM) Eos Absolute [0.00-0.50 10*3] 0.16 10*3 (04/06/16 4:45 PM) Baso Absolute [0.00-0.20 10*3] 0.05 10*3 (04/06/16 4:45 PM) Chemistry Most recent to oldest [Reference Range]: 1 Sodium Lvl [135-144 mEq/L] 140 mEq/L (04/06/16 4:45 PM) Potassium Lvl [3.5-5.2 mEq/L] 3.9 mEq/L (04/06/16 4:45 PM) Chloride [99-111 mEq/L] 109 mEq/L (04/06/16 4:45 PM) CO2 [22-31 mEq/L] 23 mEq/L (04/06/16 4:45 PM) AGAP [3-20] 8 (04/06/16 4:45 PM) BUN [10-20 mg/dL] 11 mg/dL (04/06/16 4:45 PM) Glucose Lvl [70-99 mg/dL] 91 mg/dL (04/06/16 4:45 PM) Creatinine Lvl [0.57-1.11 mg/dL] 1.08 mg/dL (04/06/16 4:45 PM) eGFR [>60 mL/min] 53 mL/min 1 *ABN* (04/06/16 4:45 PM) Calcium Lvl [8.9-10.5 mg/dL] 9.4 mg/dL (04/06/16 4:45 PM) Albumin Lvl [3.5-5.0 gm/dL] 3.9 gm/dL (04/06/16 4:45 PM) Total Protein [6.4-8.3 gm/dL] 7.0 gm/dL (04/06/16 4:45 PM) Globulin [1.8-4.0 gm/dL] 3.1 gm/dL (04/06/16 4:45 PM) ALT [0-55 U/L] 89 U/L *HI* (04/06/16 4:45 PM) AST [5-34 U/L] 105 U/L *HI* (04/06/16 4:45 PM) Alk Phos [40-150 U/L] 98 U/L (04/06/16 4:45 PM) Bili Total [0.2-1.2 mg/dL] 0.4 mg/dL (04/06/16 4:45 PM) TSH with Reflex Free T4 [0.35-4.94] 1.01 (04/06/16 4:45 PM) Hgb A1c [4.1-5.6 %] [...] Author: Gilson Singleton MD Date: Family Medicine Back Exercises Back exercises help [...] Released: 11/25/2005 Document Revised: 01/09/2013 Document Reviewed: 08/18/2012 ExitCare Patient Information 2015 [employer]. No follow up information was provided. Extracted [...] with supper. Must last 14 Days Fill 6/6/16., # 98 tabs, 0 Refill(s) oxyCODONE, 1-2 tabs, Oral, q6hr, as needed for pain, May fill q 14 days. Fill today 04/06/16., # 30 tabs, 0 Refill(s), #30 MUST LAST 15 DAYS
--- OUTSIDE RECORDS SUMMARY | 2017-09-15 08:04 | External Medical Summary | Continuity of Care Document ---
:1960 Author Organization [facility] Address [address] [place], [place] [id number] Phone Care Team Providers Name Role Phone [...] Care Team Description For Visit Members Associates [facility] In [facility] Luis Angel. Health JOSE, [address], [place], [id number], , [place]. [place] tel: [phone] Rhonda Sanchez MenorrhagiaMenorr Nicanor [facility] In [facility] Zaira. Provider: danyel Ken Uterine [address] BleedingDysfuncti Cris Ryan, [address], onal Uterine Center [address], [facility] Medical [place], [address], [place] , Daniel [facility] 120, [place] Daniel [place], tel:[phone] [place], , [place]. [id number]. tel: tel:[phone] Rhonda Sanchez MenorrhagiaPostme Nicanor Referring In Womens nopausal Bleeding Zaira. Provider: Yoselin GARCIA, [address] Medical Nicanor L, [address], Center [address], [facility], [address], [place] [id number], [facility], [place], tel:[phone] [place], , [place]. [id number]. tel: tel:[phone] Rhonda Sanchez Postmenopausal Dec- Nicanor Referring In Womens Ultrasound Bleeding - Zaira. Provider: Yoselin GARCIA, [address] Medical Nicanor [address], [address], [address], [facility], [address], [place] [id number], [facility] [address], [place], tel:[phone] [place], , [place]. [id number]. tel: tel:[phone] Rhonda Sanchez Essential Nicanor Referring In Womens (primary) Zaira. Provider: Yoselin GARCIA, hypertensionPostm [address] enopausal Medical Nicanor L, [address], BleedingPelvic Center [address] [place], and perineal pain , [facility], [address], [place] [id number], [facility] [address], [place], tel:[phone] [place], , [place]. [id number]. tel: tel:[phone] Family History Family Member Diagnosis Age At Onset Paternal Grandfather Diabetes Father Hypertension Mother Osteoporosis Father Prostate Cancer Mother Breast Cancer Father Stroke Mother Hypertension Maternal Grandmother Breast Cancer Paternal Grandmother Breast Cancer Maternal Grandmother Colon Cancer Immunizations Vaccine Date Status Comments Unknown Payers Payer name Insurance type Covered constitution party ID Authorization(s) Medicare MB [id number] [facility] [id number] Social History Type Description Quantity Date Captured [...] completed Future Order: Radiology Order Pelvic Ultrasound (71621) Ordered Date Type Problem Goal Intervention Status [...]
--- OUTSIDE RECORDS SUMMARY | 2017-09-15 08:04 | External Medical Summary | Summary of Care ---
[...] Medications Name Dates Details Methadone HCl TABS Refills: 0 Active OxyCODONE HCl TABS Refills: 0 Active Allergies and Adverse Reactions [...] Dates Details Immunizations not documented Family History Unknown Family Member Name Dates Details Family history of hypertension [...] Social History Name Dates Details - Status: Smoking Status Name Dates Details Former smoker Vital Signs Date Test Result Details No Known Vitals to report Results Date Description Value Details Results not documented Plan of Care Name Dates Details Planned Observations Planned Goals not documented Instructions Name Dates Details Instructions not documented Encounters Appointment; Alban Basurto M.D. On 19-Oct-2016 Encounter Diagnosis: Problem not documented 11:45 Appointment; Alban Basurto M.D. On 30-Sep-2016 Encounter Diagnosis: Problem not documented 08:30
[2017-09-15] MEDS ORDERED: KETOROLAC 30 MG/ML INJECTION IVP ONE (08:06)
--- OUTSIDE RECORDS SUMMARY | 2017-09-15 08:06 | External Medical Summary | Summary of Care ---
:1960 Author Name Felisha Basurto M.D. Address Unavailable Unavailable , Care Team Providers Name Role Phone Felisha Basurto M.D. Unavailable Unavailable No Assigned PCP-Pt Confirmed Unavailable Unavailable Unavailable Unavailable Unavailable Functional Status [...] 05-Oct-2016 12:00 Interventions Provided Labs/Procedures/ImagingPROTIME PANEL 7000; To be Done: 30 Sep 2016 Instructions Name Dates Details Instructions not documented Encounters Appointment; Alban Basurto M.D. On 30-Sep-2016 Encounter Diagnosis: Problem not documented 08:30
--- OUTSIDE RECORDS SUMMARY | 2017-09-15 08:08 | External Medical Summary | Referral Summary ---
:1960 Author [facility] Address [address] [place] [address] [place] [address] Care Team Providers Name Role Phone Gilson Singleton Primary Care Physician Encounter VC Date(s): 04/12/15 - 04/12/15 [facility] [place] [place] [address] [place] Discharge Disposition: 01-Home or Self Care Attending Physician: Gilson Singleton MD Admitting Physician: Gilson Singleton MD Vital Signs Most recent to oldest [Reference Range]: 1 Blood Pressure [90-140/60-90 mmHg] 220/100 mmHg *HI* (04/12/15 1:41 PM) Problem List Condition Effective Dates Status Health Status Informant Benign essential Active hypertension(Confirmed) Chronic back pain(Confirmed) Active Chronic pain disorder(Confirmed) Active Abdominal hernia(Confirmed) Active Left hip pain(Confirmed) Active History of bilateral breast Active implants(Confirmed) H/O bilateral mastectomy(Confirmed) Active Chronic knee pain(Confirmed) Active Breast cancer(Confirmed) Active Morbid obesity(Confirmed) Active patient Tobacco user(Confirmed) Active patient Allergies, Adverse Reactions, Alerts No Known Allergies Medications amitriptyline 75 mg oral tablet 75 mg 1 tabs, Oral, Bedtime (once a day), # 30 tabs, 0 Refill(s) Start Date: 04/12/15 Status: Orderedatenolol 25 mg oral tablet 25 mg 1 tabs, Oral, Daily, # 30 tabs, 0 Refill(s), Pharmacy: [facility] [id number], 1 tabs OralDaily Start Date: 10/22/15 Status: OrderedCeleXA 20 mg oral tablet 20 mg 1 tabs, Oral, Daily, # 30 tabs, 0 Refill(s), Pharmacy: [id number], 1 tabs OralDaily Start Date: 10/22/15 Status: Orderedmethadone 10 mg oral tablet See Instructions, 3 tabs with bkfst, 2 tabs at noon, 3 tabs at hs Must last 14 Days Fill 10/24/15, # 120 tabs, 0 Refill(s) Start Date: 10/22/15 Status: OrderedNorvasc 5 mg oral tablet 5 mg 1 tabs, Oral, BID, # 60 tabs, 0 Refill(s), Pharmacy: [facility], 1 tabs Oral BID Start Date: 06/14/15 Status: OrderedoxyCODONE 5 mg oral tablet 1-2 tabs, Oral, q6hr, as needed for pain, FILL EVERY OTHER WEDNESDAY Fill 10/24/15 , # 30 tabs, 0 Refill(s), #30 MUST LAST 15 DAYS Start Date: 10/22/15 Status: OrderedVictoza 18 mg/3 mL subcutaneous solution [...] Author: Gilson Singleton MD Date: Family Medicine Arterial Hypertension Arterial hypertension (high blood pressure ) is a condition of elevated pressure in your blood vessels. Hypertension over a long period of time is a risk factor for strokes, heart attacks, and heart breanna lure. It is also the leading cause of kidney (renal ) failure. CAUSES In Adults -- Over 90% of all hypertension has no known cause. This is called essential or primary hypertension. In the other 10% of people with hypertension, the increase in blood pressure is cause d by another disorder. This is called secondary [...] It may be a sign of 3 com plications of : preeclampsia, HELLP syndrome, and eclampsia. [...] caregiver, this is often termed "white coat hyp ertension." Its importance is not known. It may [...] start of sounds. Diastolic pressure is the pre ssure at which the sounds disappear. If you [...] if you have type 2 diabetes, abdominal obesit y, and abnormal blood lipids in addition to [...] of secondary hypertension depends on the underlying cause . Many people whose hypertension is controlled with [...] (sodium ) can help lower blood pressure. De creasing salt intake decreases blood pressure in a 1/3 of people. Stop smoking if you are a smoker. The steps above are highly effective in reducing blood pressure. While these actions are easy to suggest, they are difficult to achieve. Most patients with moderate or severe hypertension end up requiri ng medications to bring their blood pressure down to a normal level. There are several classes of medications for treatment. Blood pressure pills ( antihypertensives ) will lower blood pressure by their different actions. Lowering the blood pressure by 10 mmHg may decrease the risk of complications by as much as 25%. The goal of treatment is effective blood pressure control. This will reduce your risk for complications. Your caregiver will help you determine the best treatment for you according to your lifestyle. Wh at is excellent treatment for one person, may [...] a stroke (such as sudden weakness, difficulty speaking, difficulty walking). MAKE SURE YOU: Understand these instructions. Will watch your condition. Will get help right away if you are not doing well or get worse. Document Released: 10/18/2006 Document Revised: 01/09/2013 Document Reviewed: 05/17/2008 ExitCare Patient Information 2014 [employer]. No follow up information was provided. Extracted from: Title: Office Visit Note Author: Gilson Singleton MD Date: 04/12/15 Assessment/Plan Abdominal hernia This issue is stable and appropriate refills, lab, and f/u have been discussed. To [facility] Surgery at some point if she remains [...] Trial of oxycontin 5mg q6 prn number 3 0 and mustlast 15 days. Trial of methadone 10mg3 am, 2 noon, 3 pm, 120 must last 15 days. Recheck with nurse in 15 days. If no drama for 30 days I will accept her as a patient. Otherwise to ER and new PCP for any problems. The [...] Daily, # 30 tabs, 0 Refill(s), Pharmacy: [facility], 1 tabs Oral Daily methadone, See [...]
--- OUTSIDE RECORDS SUMMARY | 2017-09-15 08:13 | External Medical Summary | Continuity of Care Document ---
:1960 [address] Organization [facility] Address [address] [place], [place] [id number] Phone Care Team Providers Name Role Phone [...] Active Arthritis Unspecified Active Procedures Procedure Date Biopsy of uterus lining [facility] Test Name Date and Time Measure Units Reference Range Abnormal Flag Comments Unknown Advance Directives Directive Yes / No Effective Date File Name Unknown Encounters Encounter Practice Location Reason(s) Diagnoses Date Provider Care Team Description For Visit Members Office/outpa Associates Daniel menorrhagia MenorrhagiaMeno Nicanor Referring tient In Women (chief rrhagiaDysfunct 7-201 Zaira. Provider: visit,est, Health PA, complaint) ional Uterine 7 700 Zaira mod [address] BleedingDysfunc Medical Nicanor L, 1522, tional Uterine Center [address] [place], Bleeding , [facility] [place], 120, Center [id number], [facility] [place] Daniel STRINGER, tel:[phone] [place], [id number] , [place]. [id number]. tel: tel: [phone] Rhonda Sanchez MenorrhagiaPost Dec- Nicanor Referring In Womens menopausal 1-201 Zaira. Provider: Yoselin GARCIA, Bleeding 6 700 Zaira PO Box Medical Nicanor L, 1522, Center [address]qu[address], [facility] [place], 120, Center [id number], [place], [facility] 120, [place] Daniel STRINGER, tel:[phone] [place], , [place]. [id number]. tel: tel:[phone] Rhonda Sanchez Postmenopausal Dec- Nicanor Referring In Womens Ultrasound Bleeding 8-201 Zaira. Provider: Yoselin GARCIA, 6 700 Zaira PO Box Medical Nicanor L, 1522, Center [address], [facility] [place], 120, Center [id number], Daniel, [facility] 120, [place] Daniel STRINGER, tel:[phone] [place], , [place]. [id number]. tel: tel: [phone] Rhonda Sanchez Essential Dec- Nicanor Referring In Womens (primary) 8-201 Zaira. Provider: Yoselin GARCIA, hypertensionPos 6 700 Zaira PO Box tmenopausal Medical Nicanor L, 1522, BleedingPelvic Center [address] [place], and perineal , [facility] MYKE, pain 120, Center [id number], Sanchez, [facility] 120, [place] Daniel STRINGER, tel: [phone] [place], , [place]. [id number]. tel: tel: [phone] Family History Family Member Diagnosis Age At Onset Paternal Grandfather Diabetes Father Hypertension Mother Osteoporosis Father Prostate Cancer Mother Breast Cancer Father Stroke Mother Hypertension Maternal Grandmother Breast Cancer Paternal Grandmother Breast Cancer Maternal Grandmother Colon Cancer Immunizations Vaccine Date Status Comments Unknown Payers Payer name Insurance type Covered constitution party ID Authorization(s) Medicare MB [id number] [facility] [id number] Social History Type Description Quantity Date Captured Alcohol Use Details No Caffeine Use Details No Tobacco Use Status Smoking Status Current every day smoker Non-Smoking Tobacco Use : No Details Available : No Details Available Details Vital Signs Date / Height Weight BMI Pulse Blood Temperature Respiratory Body Head BMI Time: Rate Pressure Rate Surface Circumference percentile Area 67.00 255.80 40.0 132 177/115 -2017 in lbs 6 /min mm[Hg] 2:48 kg/m PM eter (2) Chief Complaint And Reason For Visit Most recent encounter only, dated '05/17/2017 14:45'. menorrhagia (chief complaint). Description: The problem started gradually months ago. She considersthe uterine bleeding to be moderate. She uses 6 pads per day. The patient describes it as bright red. The problem is without change. She is postmenopausal. Symptoms are not relieved by anything. There are no associated symptoms. There are no pertinent negative findings. She did not keep sono appt or follow-up as her son was in MVA. Plans to see Dr David for PCP. Reason For Referral Reason For Referral Unknown Plan Of Care Date Type Action Status Goal Tobacco cessation counseling completed Goal Tobacco cessation counseling completed Appointment Radha Gilbert BOOKED Appointment Radha Gilbert BOOKED Future Order: Radiology Order Pelvic Ultrasound ([id number]) Ordered Date Type Problem Goal Intervention Status Start Date Unknown. History Of Present Illness Encounter Date Complaint History Of Present Illness menorrhagia The problem started gradually months ago. She considers the uterine bleeding to be moderate. She uses 6 pads per day. The patient describes it as bright red. The problem is without change. She is postmenopausal. Symptoms are not relieved by anything. There are no associated symptoms. There are no pertinent negative findings. She did not keep sono appt or follow-up as her son was in MVA. Plans to see Dr David for PCP. Functional Status Encounter Date Functional Assessment Cognitive Assessment Unknown Medications Administered Medication Instructions Dosage Effective Dates (start - stop) Status Comments Drug Treatment Unknown Instructions Date Instruction Additional Information Giving encouragement to exercise Related to Body mass index 40.0- 44.9 Giving encouragement to exercise Related to Body mass index 40.0- 44.9
--- OUTSIDE RECORDS SUMMARY | 2017-09-15 08:16 | External Medical Summary | Referral Summary ---
:1960 Author Organization [facility] Address [address] [place] [address] [place] [address] Care Team Providers Name Role Phone Gilson Singleton Primary Care Physician Encounter VC Date(s): 06/14/15 - 06/14/15 [facility] [address] [place] [address] [place] Discharge Disposition: 01-Home or Self Care Attending Physician: Gilson Singleton MD Admitting Physician: Gilson Singleton MD Vital Signs Most recent to oldest [Reference Range]: 1 Blood Pressure [90-140/60-90 mmHg] 160/82 mmHg *HI* (06/14/15 2:35 PM) Problem List Condition [...] Daily, # 30 tabs, 0 Refill(s), Pharmacy: [id number], 1 tabs OralDaily Start Date: 11/20/15 Status: OrderedCeleXA 20 mg oral tablet 20 mg 1 tabs, Oral, Daily, # 30 tabs, 0 Refill(s), Pharmacy: [facility] [id number], 1 tabs OralDaily Start Date: 12/04/15 Status: Orderedmethadone 10 mg oral tablet See Instructions, 3 tabs with bkfst, 2 tabs at noon, 3 tabs at hs Must last 14 Days Fill 12/18/15, # 120 tabs, 0 Refill(s) Start Date: 12/18/15 Status: OrderedNorvasc 5 mg oral tablet 5 mg 1 tabs, Oral, BID, # 60 tabs, 0 Refill(s), Pharmacy: [facility], 1 tabs Oral BID Start Date: 06/14/15 Status: OrderedoxyCODONE 5 mg oral tablet 1-2 tabs, Oral, q6hr, as needed for pain, FILL EVERY OTHER WEDNESDAY Fill 12/20/15 , # 30 tabs, 0 Refill(s), #30 MUST LAST 15 DAYS Start Date: 12/18/15 Status: OrderedVictoza 18 mg/3 mL subcutaneous solution [...] as directed may be useful if the an kles, knees or hips are involved. If the knee was splinted or casted, continue use and care as directed. If an stretchy or elastic wrapping bandage has been applied today, it should be removed and re-ap plied every 3 to 4 hours. It should [...] applications, or slings as instructed. Only take qpgh-mtv-ebciytf or prescription medicines for pain, discomfort , or fever as directed by your caregiver. Do not use aspirin immediately after the injury unless instructed by your physicia n. Aspirin can cause increased bleeding and bruising [...] a follow-up visit as soon as possible. Initiall y, a hairline fracture (break in bone) may not be evident on X-rays. Persistent pain and swelling indicate that further evaluation, non-weight bearing or use of the joint (use of crutches or slings as i nstructed), or further X-rays are indicated. X-rays may sometimes not show a small fracture until a week or 10 days later. Make a follow-up appointment with your own caregiver or one to whom we have ref erred you. A radiologist (specialist in reading X-rays) [...] Released: 10/18/2006 Document Revised: 01/09/2013 Document Reviewed: 06/05/2009 [facility] Patient Information 2015 [employer]. This information is not intended to replace [...] above. Left hip pain Xray pending. To [facility] Rheumatology for injection when available and willing. Morbid obesity Trial ofvictoza .6ug sq daily. Side effectsdiscussed. Samples and nursing directions given as a demo and courtesy.
--- OUTSIDE RECORDS SUMMARY | 2017-09-15 08:16 | External Medical Summary | Continuity of Care Document ---
:1960 Author Organization [facility] Address [address] [place], [place] [phone] Phone Care Team Providers Name Role Phone [...] Procedure Date Biopsy of uterus lining Office/outpatient visit,[facility] Results Test Name Date and Time Measure [...] Nicanor L, 1522, tional Uterine Center 700 [place], Bleeding , [facility] [place], 120, Center [id number], [facility], [place] Daniel STRINGER, tel:[phone] [place], [phone] , [place]. [id number]. tel: tel: [phone] Rhonda Sanchez MenorrhagiaPost Dec- Nicanor Referring In Womens menopausal 1-201 Zaira. Provider: Yoselin GARCIA, Bleeding 6 700 Zaira PO Box Medical Nicanor L, 1522, Center [address] Dr [address], [facility] [place], 120, Center [id number], Sanchez, [facility] 120, [place] Daniel STRINGER, tel:[phone] [place], , [place]. [id number]. tel: tel:[phone] Rhonda Sanchez Postmenopausal Dec- Nicanor Referring In Womens Ultrasound Bleeding 8-201 Zaira. Provider: Yoselin GARCIA, 6 700 Zaira PO Box Medical Nicanor L, 1522, Center [address], [facility] [place], 120, Center [id number], Daniel, [facility] 120, [place] Daniel STRINGER, tel:[phone] [place], , [place]. [id number]. tel: tel: [phone] Rhonda Sanchez Essential Dec- Nicanor Referring In Womens (primary) 8-201 Zaira. Provider: Yoselin GARCIA, hypertensionPos 6 700 Zaira PO Box tmenopausal Medical Nicanor L, 1522, BleedingPelvic Center 700 [place], and perineal , [facility] MYKE, pain 120, Center [id number], Sanchez, [facility] 120, [place] Daniel STRINGER, tel: [phone] [place], , [place]. [id number]. tel: tel: [phone] Family History Family Member Diagnosis Age At Onset Paternal Grandfather Diabetes Father Hypertension Mother Osteoporosis Father Prostate Cancer Mother Breast Cancer Father Stroke Mother Hypertension Maternal Grandmother Breast Cancer Paternal Grandmother Breast Cancer Maternal Grandmother Colon Cancer Immunizations Vaccine Date Status Comments Unknown Payers Payer name Insurance type Covered libertarian ID Authorization(s) Medicare MB [id number] [facility] [id number] Social History Type Description Quantity Date Captured [...] BOOKED Future Order: Radiology Order Pelvic Ultrasound ([id number]) Ordered Date Type Problem Goal Intervention Status [...]
--- OUTSIDE RECORDS SUMMARY | 2017-09-15 08:16 | External Medical Summary | Continuity of Care Document ---
:1960 Author Organization [facility] Address [address] [place], [place] [phone] Phone Care Team Providers Name Role Phone [...] Provider Care Team Description For Visit Members Rhonda Sanchez Nicanor In Womens 0- Zaira. Yoselin GARCIA 7 PO Box Medical [address], [place] [address] Laquita, [facility] [place], 120, [id number], [place], [place], tel:[phone] , [place]. tel: [phone] Rhonda Sanchez MenorrhagiaMenorr Nicanor Referring In Women hagiaDysfunctiona 7- Zaira. Provider: danyel Ken Uterine 7 Zaira PO Box BleedingDysfuncti Medical Nicanor Ryan, 1522, onal Uterine Center [address], [facility] [place], 120, [place] [id number], Daniel, Pablo 120, [place] Daniel STRINGER, tel:[phone] [place], , [place]. [id number]. tel: tel:[phone] Rhonda Sanchez MenorrhagiaPostme Nicanor Referring In Womens nopausal Bleeding Zaira. Provider: Yoselin GARCIA, 6 700 Zaira PO Box Medical Nicanor L, 1522, Center [address], [facility], 120, Center [id number], Daniel, [facility] 120, [place] Daniel STRINGER, tel:[phone] [place], , [place]. [id number]. tel: tel:[phone] Rhonda Sanchez Postmenopausal Dec- Nicanor Referring In Womens Ultrasound Bleeding Zaira. Provider: Yoselin GARCIA, 6 700 Zaira PO Box Medical Nicanor L, 1522, Center [address], [facility], 120, [place] [id number], Daniel, [facility] 120, [place] Daniel STRINGER, tel:[phone] [place], , [place]. [id number]. tel: tel:[phone] Rhonda Sanchez Essential Nicanor Referring In Womens (primary) Zaira. Provider: Yoselin GARCIA, hypertensionPostm 6 700 Zaira PO Box enopausal Medical Nicanor L, 1522, BleedingPelvic Center 700 [place], and perineal pain , [facility], 120, [place] [id number], Daniel, [facility] 120, [place] Daniel STRINGER, tel:[phone] [place], , [place]. [id number]. tel: tel:[phone] Family History Family Member Diagnosis Age At Onset Paternal Grandfather Diabetes Father Hypertension Mother Osteoporosis Father Prostate Cancer Mother Breast Cancer Father Stroke Mother Hypertension Maternal Grandmother Breast Cancer Paternal Grandmother Breast Cancer Maternal Grandmother Colon Cancer Immunizations Vaccine Date Status Comments Unknown Payers Payer name Insurance type Covered libertarian ID Authorization(s) Medicare MB [id number] [facility] [id number] Social History Type Description Quantity Date Captured [...] completed Future Order: Radiology Order Pelvic Ultrasound ([id number]) Ordered Date Type Problem Goal Intervention Status [...]
--- OUTSIDE RECORDS SUMMARY | 2017-09-15 08:16 | External Medical Summary | Continuity of Care Document ---
:1960 Author Organization [facility] Address [address] [place], [place] [phone] Phone Care Team Providers Name Role Phone [...] Care Team Description For Visit Members [facility] JOSE, [address], 1522, [place], [place], [id number], , [place]. [place] tel: tel:[phone] Rhonda Sanchez MenorrhagiaMenorr Nicanor Referring In [facility] nda. Provider: danyel Ken Uterine 7 Zaira PO Box BleedingDysfuncti Cris Ryan, 1522, onal Uterine Center [address], [facility] Medical [place], 120, [place] , Daniel [facility] 120, [place] Daniel STRINGER, tel:[phone] [place], , [place]. [id number]. tel: tel:[phone] Rhonda Sanchez MenorrhagiaPostme Nicanor Referring In Womens nopausal Bleeding Zaira. Provider: Yoselin GARCIA, 6 700 Zaira PO Box Medical Nicanor L, 1522, Center [address], [facility], 120, [place] [id number], [facility], [place] Daniel STRINGER, tel:[phone] [place], , [place]. [id number]. tel: tel:[phone] Rhonda Sanchez Postmenopausal Dec- Nicanor Referring In Womens Ultrasound Bleeding - Zaira. Provider: Yoselin GARCIA, 6 700 Zaira PO Box Medical Nicanor L, 1522, Center [address], [facility], 120, [place] [id number], [facility] 120, [place] Daniel STRING[place], tel:[phone] [place], , [place]. [id number]. tel: tel:[phone] Rhonda Sanchez Essential Nicanor Referring In Womens (primary) Zaira. Provider: Yoselin GARCIA, hypertensionPostm 6 700 Zaira PO Box enopausal Medical Nicanor L, 1522, BleedingPelvic Center 700 [place], and perineal pain , [facility], 120, [place] [id number], [facility] 120, [place] Daniel STRINGER, tel:[phone] [place], , [place]. [id number]. tel: tel:[phone] Family History Family Member Diagnosis Age At Onset Paternal Grandfather Diabetes Father Hypertension Mother Osteoporosis Father Prostate Cancer Mother Breast Cancer Father Stroke Mother Hypertension Maternal Grandmother Breast Cancer Paternal Grandmother Breast Cancer Maternal Grandmother Colon Cancer Immunizations Vaccine Date Status Comments Unknown Payers Payer name Insurance type Covered constitution party ID Authorization(s) Medicare MB [id number] [facility] [id number] Social History Type Description Quantity Date Captured [...] completed Future Order: Radiology Order Pelvic Ultrasound ([id number]) Ordered Date Type Problem Goal Intervention Status [...]
--- OUTSIDE RECORDS SUMMARY | 2017-09-15 08:16 | External Medical Summary | Referral Summary ---
:1960 Author Organization [facility] Address [address] [place] [address] Care Team Providers Name Role Phone Gilson Singleton Primary Care Physician Encounter [facility] [id number] Date(s): 10/15/15 - 10/15/15 [facility] [address] [place] [address] [place] Discharge Diagnosis: Abdominal mass Discharge Disposition: 01-Home or Self Care Attending Physician: Fish Herrera MD Admitting Physician: Fish Herrera MD Referring Physician: Gilson Singleton MD Vital Signs Most recent to oldest [Reference Range]: 1 Blood Pressure [90-140/60-90 mmHg] 130/94 mmHg (10/15/15 3:30 PM) Problem List Condition Effective [...] Daily, # 30 tabs, 0 Refill(s), Pharmacy: [facility] [id number], 1 tabs OralDaily Start Date: 09/23/15 Status: OrderedCeleXA 20 mg oral tablet 20 mg 1 tabs, Oral, Daily, # 30 tabs, 0 Refill(s), Pharmacy: [id number], 1 tabs OralDaily Start Date: 09/23/15 Status: Orderedmethadone 10 mg oral tablet See Instructions, 3 tabs with bkfst, 2 tabs at noon, 3 tabs at hs Must last 14 Days Fill 10/11/15, # 120 tabs, 0 Refill(s) Start Date: 10/09/15 Status: OrderedNorvasc 5 mg oral tablet 5 mg 1 tabs, Oral, BID, # 60 tabs, 0 Refill(s), Pharmacy: [facility], 1 tabs Oral BID Start Date: 06/14/15 Status: OrderedoxyCODONE 5 mg oral tablet 1-2 tabs, Oral, q6hr, as needed for pain, FILL EVERY OTHER WEDNESDAY Fill 10/11/15 , # 30 tabs, 0 Refill(s), #30 MUST LAST 15 DAYS Start Date: 10/09/15 Status: OrderedVictoza 18 mg/3 mL subcutaneous solution [...] follow. Ordered: Office Visit Level 3 New [address]35 Orders: CT Abdomen Pelvis w/ Contrast
--- OUTSIDE RECORDS SUMMARY | 2017-09-15 08:16 | External Medical Summary | Referral Summary ---
:1960 Author Organization [facility] Address [address] [place] [address] [place] [address] Care Team Providers Name Role Phone Gilson Singleton Primary Care Physician Encounter VC Date(s): 09/23/15 - 09/23/15 [facility] [place] [address] [place] Discharge Disposition: 01-Home or Self Care Attending Physician: Gilson Singleton MD Admitting Physician: Gilson Singleton MD Vital Signs Most recent to oldest [Reference Range]: 1 Blood Pressure [90-140/60-90 mmHg] 190/100 mmHg *HI* (09/23/15 1:26 PM) Problem List Condition [...] Daily, # 30 tabs, 0 Refill(s), Pharmacy: [facility] [id number], 1 tabs OralDaily Start Date: 09/23/15 Status: OrderedCeleXA 20 mg oral tablet 20 mg 1 tabs, Oral, Daily, # 30 tabs, 0 Refill(s), Pharmacy: [facility] [id number], 1 tabs OralDaily Start Date: 09/23/15 Status: Orderedmethadone 10 mg oral tablet See Instructions, 3 tabs with bkfst, 2 tabs at noon, 3 tabs at hs Must last 15 days, may fill 09/27/15, # 120 tabs, 0 Refill(s) Start Date: 09/23/15 Status: OrderedNorvasc 5 mg oral tablet 5 mg 1 tabs, Oral, BID, # 60 tabs, 0 Refill(s), [facility]acy: [facility], 1 tabs Oral BID Start Date: 06/14/15 Status: OrderedoxyCODONE 5 mg oral tablet 1-2 tabs, Oral, q6hr, as needed for pain, FILL EVERY OTHER WEDNESDAY Fill 09-27-15 , # 30 tabs, 0 Refill(s), #30 MUST LAST 15 DAYS Start Date: 09/23/15 Status: OrderedpredniSONE 20 mg oral tablet 20 mg 1 tabs, Oral, Daily, X 5 days, # 5 tabs, 0 Refill(s), Pharmacy: [id number], 1 tabs Oral Daily,x5 days Start Date: 09/23/15 Stop Date: 09/28/15 Status: OrderedVictoza 18 mg/3 mL subcutaneous solution 0.6 mg, SubCutaneous, Daily, # 3 mL, 0 Refill(s), samples given to patient (Rx) Start Date: 06/14/15 Stop Date: 07/14/15 Status: Ordered Results Hematology Most recent to oldest [Reference Range]: 1 WBC [4.8-10.8 10*3/uL] 11.1 10*3/uL *HI* (09/23/15 1:55 PM) RBC [4.00-5.20] 5.18 (09/23/15 1:55 PM) Hgb [12.0-16.0 gm/dL] 14.7 gm/dL (09/23/15 1:55 PM) Hct [37.0-47.0 %] 45.5 % (09/23/15 1:55 PM) MCV [82.0-99.0 fL] 87.8 fL (09/23/15 1:55 PM) MCH [27.0-32.0 pg] 28.4 pg (09/23/15 1:55 PM) MCHC [32.0-36.0 gm/dL] 32.3 gm/dL (09/23/15 1:55 PM) RDW [11.5-14.5 %] 14.0 % (09/23/15 1:55 PM) Platelet [150-400 10*3/uL] 282 10*3/uL (09/23/15 1:55 PM) MPV [8.8-14.8 fL] 11.3 fL (09/23/15 1:55 PM) Immature Granulocytes [0.0-1.0 %] 0.2 % (09/23/15 1:55 PM) Neutrophils [51-75 %] 77 % *HI* (09/23/15 1:55 PM) Lymphocytes [20-46 %] 17 % *LOW* (09/23/15 1:55 PM) Monocytes [4-11 %] 5 % (09/23/15 1:55 PM) Eosinophils [0-4 %] 1 % (09/23/15 1:55 PM) Basophils [0-2 %] 0 % (09/23/15 1:55 PM) Neutro Absolute [1.90-7.00 10*3] 8.58 10*3 *HI* (09/23/15 1:55 PM) Lymph Absolute [0.80-3.30 10*3] 1.85 10*3 (09/23/15 1:55 PM) Furnas Absolute [0.30-1.00 10*3] 0.54 10*3 (09/23/15 1:55 PM) Eos Absolute [0.00-0.50 10*3] 0.07 10*3 (09/23/15 1:55 PM) Baso Absolute [0.00-0.20 10*3] 0.03 10*3 (09/23/15 1:55 PM) Chemistry Most recent to oldest [Reference Range]: 1 Sodium Lvl [135-144 mEq/L] 137 mEq/L (09/23/15 1:55 PM) Potassium Lvl [3.5-5.2 mEq/L] 3.9 mEq/L (09/23/15 1:55 PM) Chloride [99-111 mEq/L] 102 mEq/L (09/23/15 1:55 PM) CO2 [22-31 mEq/L] 24 mEq/L (09/23/15 1:55 PM) AGAP [3-20] 11 (09/23/15 1:55 PM) BUN [10-20 mg/dL] 7 mg/dL *LOW* (09/23/15 1:55 PM) Glucose Lvl [70-99 mg/dL] 130 mg/dL *HI* (09/23/15 1:55 PM) Creatinine Lvl [0.57-1.11 mg/dL] 1.05 mg/dL (09/23/15 1:55 PM) eGFR [>60 mL/min] 55 mL/min 1 *ABN* (09/23/15 1:55 PM) Calcium Lvl [8.9-10.5 mg/dL] 10.0 mg/dL (09/23/15 1:55 PM) Albumin Lvl [3.5-5.0 gm/dL] 4.1 gm/dL (09/23/15 1:55 PM) Total Protein [6.4-8.3 gm/dL] 7.9 gm/dL (09/23/15 1:55 PM) Globulin [1.8-4.0 gm/dL] 3.8 gm/dL (09/23/15 1:55 PM) ALT [0-55 U/L] 17 U/L (09/23/15 1:55 PM) AST [5-34 U/L] 18 U/L (09/23/15 1:55 PM) Alk Phos [40-150 U/L] 98 U/L (09/23/15 1:55 PM) Bili Total [0.2-1.2 mg/dL] 0.5 mg/dL (09/23/15 1:55 PM) Chol [0-199 mg/dL] 195 mg/dL (09/23/15 1:55 PM) Trig [0-149 mg/dL] 129 mg/dL (09/23/15 1:55 PM) HDL [40-84 mg/dL] 55 mg/dL (09/23/15 1:55 PM) LDL [0-130 mg/dL] 114 mg/dL (09/23/15 1:55 PM) VLDL Cholesterol [0-28 mg/dL] 26 mg/dL (09/23/15 1:55 PM) Cardiac Risk [0.0-5.0] 3.5 (09/23/15 1:55 PM) TSH with Reflex Free T4 [0.35-4.94] 0.71 (09/23/15 1:55 PM) Hgb A1c [4.1-5.6 %] [...] Patient Education Author: Gilson Singleton MD Date: 09/23 Family Medicine Arthralgia Your caregiver has diagnosed [...] applications, or slings as instructed. Only take itqp-jtq-ixuyckd or prescription medicines for pain, discomfort , [...] 10/18/2006 Document Revised: 01/09/2013 Document Reviewed: 06/05/2009 ExitCare Patient Information 2015 [facility]. This information is not intended to replace [...] 45 minutes were utilized in care and coordin ation for this patient. Greater then 50% of [...]
--- OUTSIDE RECORDS SUMMARY | 2017-09-15 08:16 | External Medical Summary | Referral Summary ---
:1960 Author Organization [facility] [address] [place] [address] Care Team Providers Name Role Phone Gilson Singleton Primary Care Physician Encounter VC Date(s): 09/21/16 - 09/21/16 [facility] [place] [phone] [phone] Discharge Diagnosis: Adult-onset obesity Discharge Diagnosis: Alcoholic pancreatitis Discharge Diagnosis: Chronic pain disorder Discharge Diagnosis: Cellulitis of both lower extremities Discharge Diagnosis: Insomnia Discharge Diagnosis: Peripheral edema Discharge Diagnosis: Left carpal tunnel syndrome Discharge Diagnosis: Chronic back pain Discharge Disposition: 01-Home or Self Care Attending Physician: Ora Burger PA-C Admitting Physician: Ora Burger PA-C Vital Signs Most recent to oldest [Reference Range]: 1 Peripheral Pulse Rate [60-100 bpm] 107 bpm *HI* (09/21/16 2:03 PM) Blood Pressure [90-140/60-90 mmHg] 164/86 mmHg *HI* (09/21/16 2:03 PM) SpO2 97 % [...] day), # 30 tabs, 0 Refill(s), Pharmacy: [facility] [id number], 1 tabs Oral Bedtime (once a day) Start Date: 09/21/16 Status: Orderedatenolol 25 mg oral tablet See Instructions, TAKE 1 TABLET BY MOUTH DAILY, # 30 tabs, eRx: [facility] [id number], TAKE 1 TABLET BY MOUTH DAILY Start Date: 09/07/16 Status: Orderedcitalopram 20 mg oral tablet See Instructions, TAKE 1 TABLET BY MOUTH DAILY, # 30 tabs, eRx: [facility] [id number], TAKE 1 TABLET BY MOUTH DAILY Start Date: 09/07/16 Status: OrderedcloNIDine 0.1 mg oral tablet mg tabs, Oral, TID, 0 Refill(s) Start Date: 09/21/16 Status: OrderedfentaNYL Topical, 0 Refill(s) Start Date: 09/21/16 Status: OrderedKeflex 250 mg oral capsule 250 mg 1 caps, Oral, QID, X 10 days, # 40 caps, 0 Refill(s), Pharmacy: [facility] [id number], 1caps Oral QID,x10 days Start Date: 09/21/16 Stop Date: 10/01/16 Status: OrderedLasix 20 mg oral tablet 20 mg 1 tabs, Oral, Daily, # 14 tabs, 0 Refill(s), Pharmacy: [facility] [id number], 1 tabs OralDaily Start Date: 09/21/16 Status: Orderedmethadone 10 mg oral tablet See Instructions, 2 tabs with bkfst, 2 tabs with lunch, and 3 tabs with supper. Must last 7 days, # 49 tabs, 0 Refill(s) Start Date: 09/21/16 Status: OrderedNorvasc 5 mg oral tablet 5 mg 1 tabs, Oral, BID, # 60 tabs, 0 Refill(s), Pharmacy: [facility], 1 tabs Oral BID Start Date: [...] Visit Note- Hospital Author: Ora Burger PA-C Date: f/u, edema, pain meds, cellultis, etc Assessment/Plan Adult-onset obesity D/w pt that Victoza is not a good option for her at this time d/t her recent h/opancreatitis.Continue to work on diet and exercise at this time. Ordered: Office Visit Level 5 Est 81833 Alcoholic pancreatitis Still having some pain from this. Advised NOT to drink ETOH. Continue with bland diet for now. Ordered: Office Visit Level 5 Est 95620 Cellulitis of both lower extremities She appears to have some cellulitis to her legs. Will tx with Keflex for now. Ordered: cephalexin, 250 mg 1 caps, Oral, QID, X 10 days, # 40 caps, 0 Refill(s), [facility]acy: [facility] [id number], 1 caps Oral QID,x10 days Office Visit Level 5 Est 53410 Chronic back pain I had d/w Dr. [...] 15 DAYS Office Visit Level 5 Est 54318 Chronic pain disorder See above. Ordered: methadone, See Instructions, 2 tabs with bkfst, 2 tabs with lunch, and 3 tabs with supper. Must last 7 days, # 49 tabs, 0 Refill(s) oxyCODONE, 1-2 tabs, Oral, q6hr, as needed for pain, # 10 tabs, 0 Refill(s), # 30 MUST LAST 15 DAYS Office Visit Level [address] Singleton was okay filling the Elavil again at this time. May restart this for sleep. Ordered: amitriptyline, 75 mg 1 tabs, Oral, Bedtime (once a day), # 30 tabs, 0 Refill(s ), Pharmacy: [facility] [id number], 1 tabs Oral Bedtime (once a day) Office Visit Level 5 Est 59954 Left carpal tunnel syndrome Recommended that she try a wrist brace to help with the numbness. If not helping, can get NCS. Ordered: Office Visit Level 5 Est 11645 Peripheral edema D/w pt to elevate the [...] Daily, # 14 tabs, 0 Refill(s), Pharmacy: [facility] [id number], 1 tabs Oral Daily Office Visit Level 5 Est 79147
--- OUTSIDE RECORDS SUMMARY | 2017-09-15 08:16 | External Medical Summary ---
:1960 Author Name GENERATED, SYSTEM Care Team Providers Name Role Phone UNASSIGNED DOCTOR MD GRAEME RILEY Primary Care Provider [phone] Reason For Visit Chief Complaint ABDOMINAL PAIN Social History Functional Status Vital Signs Results Problems Encounter Diagnosis No relevant problems exist. Additional Problems Acute Pain Comment:Problem resolved by [facility] Workflow upon Discharge, Status: Resolved.Acute Pancreatitis Comment:Problem resolved by [facility] Workflow upon Discharge, Status:Resolved.Chronic Pain Comment:Problem resolved by [facility] Workflow upon Discharge, Status:Resolved.Disturbance in Sleep Behavior Comment: Problem resolved by [facility] Workflow upon Discharge, Status:Resolved.Fall Risk Comment:Problem resolved by [facility] Workflow upon Discharge, Status: Resolved.Hypertensive Disorder Comment:Problem resolved by [facility] Workflow upon Discharge, Status:Resolved.Mobility Impairment Comment:Problem resolved by [facility] Workflow upon Discharge, Status:Resolved.Morbid Obesity Comment:Problem resolved by [facility] Workflow upon Discharge, Status:Resolved.Nutritional Deficiency Comment:Problem resolved by [facility] Workflow upon Discharge, Status: Resolved. Encounters Encounter Diagnosis No relevant problems exist. Plan of Care Procedures Completed Procedure Code: [id number] Procedure Name: not valued, on 09/07/2016 12: 00 AM Immunizations Influenza, seasonal, injectable Not Administered 09/14/2016 3:23 PM; Patient decision Hospital Course Hospital Discharge Instructions Allergies, Adverse Reactions, Alerts Latex Allergy has not been assessed.IV Contrast Allergy has not been assessed.No Known Drug Allergies.No Known Food Allergies.No Known Allergies. Medication Medication reconciliation has not been performed.
--- OUTSIDE RECORDS SUMMARY | 2017-09-15 08:17 | External Medical Summary | Continuity of Care Document ---
:1960 Author Organization [facility] Address [address] [place], [place] [id number] Phone Care Team Providers Name Role Phone [...] For Visit Members Rhonda [place] Nicanor In [facility] nda. Yoselin GARCIA [address] [place], [facility] [place], [address], [id number], [place], [place], tel:[phone] , [place]. tel: [phone] Rhonda [place] MenorrhagiaMenorr Nicanor [facility] . Provider: danyel Ken Uterine nda [address] [facility]ysfunct[facility] Nicanor [place], [address], [facility] [address], [facility] [place], [address], [place] [id number], [place], [place] 120, [place], tel:+ [phone] [place], , [place]. [id number]. tel: tel:[phone] Rhonda [place] MenorrhagiaPostme Nicanor Referring In Womens nopausal Bleeding Zaira. Provider: Yoselin GARCIA, [address] Nican[place] [address], [address] [place], [facility], 120, Center [id number], [place], [facility] 120, [place], tel:[phone] [place], , [place]. [id number]. tel: tel:[phone] Rhonda [place] Postmenopausal Dec- Nicanor Referring In Womens Ultrasound Bleeding Zaira. Provider: Yoselin GARCIA, [address] [place] [address], [address] [place], [facility], 120, [place] [id number], [place], [facility] 120, [place], tel:[phone] [place], , [place]. [id number]. tel: [phone] Rhonda [place] Essential Nicanor Referring In Womens (primary) Zaira. Provider: Yoselin GARCIA, hypertensionPostm [address] enopausal Medical Nicanor L, [address], BleedingPelvic Center [address], and perineal pain , [facility], 120, [place] [id number], [place], [facility] 120, [place], tel:[phone] [place], , [place]. [id number]. tel: [phone] Family History Family Member Diagnosis Age At Onset Paternal Grandfather Diabetes Father Hypertension Mother Osteoporosis Father Prostate Cancer Mother Breast Cancer Father Stroke Mother Hypertension Maternal Grandmother Breast Cancer Paternal Grandmother Breast Cancer Maternal Grandmother Colon Cancer Immunizations Vaccine Date Status Comments Unknown Payers Payer name Insurance type Covered republican ID Authorization(s) Medicare MB [id number] [facility] [id number] Social History Type Description Quantity Date Captured [...] completed Future Order: Radiology Order Pelvic Ultrasound ([id number]) Ordered Date Type Problem Goal Intervention Status [...]
[2017-09-15] MEDS ORDERED: NS 100 ML ONE (09:20)
[2017-09-15] MEDS ORDERED: SALINE FLUSH 10ml SYRINGE ONE (09:20)
[2017-09-15] MEDS ORDERED: IOHEXOL 300mg/ml 100ml INJECTION ONE (09:20)
[2017-09-15] MEDS ORDERED: HYDRALAZINE 20 MG/ML INJECTION IVP ONE (10:00)
[2017-09-15] MEDS: NS 1,000 ML IV SCH ×2 (10:10→19:45)
--- NOTE | 2017-09-15 10:19 | CT Scan Report ---
Indication: severe abdominal pain, pancreatitis rule out ascites PROCEDURE: CT abdomen pelvis w con: Encounter: Initial Comparison: CT abdomen and pelvis dated March 28, 2017 Technique: Axial CT images were performed through the abdomen and pelvis after the administration of intravenous contrast. Coronal and sagittal two-dimensional reformats. Automated Exposure Control and Iterative Reconstruction dose reducing techniques were utilized. Contrast: Omnipaque 300 100 mL Findings: The lung bases are clear. Liver is diffusely decreased in attenuation consistent with fatty infiltration. No enhancing liver mass or bile duct dilatation. Gallbladder is mildly distended without discrete stone disease. The spleen is unremarkable. Inflammatory change and stranding surrounding the pancreas is new from the prior study with a small amount of fluid in the paracolic gutter and retroperitoneal space but no significant ascites. Inflammation also extends around the second and third portions of the duodenum. The adrenal glands and kidneys are stable. The pancreas enhances normally. No abdominal or pelvic lymphadenopathy. Bladder appears normal. Uterus is grossly normal. No evidence of a bowel obstruction. Prior appendectomy. Bone windows show no acute findings. Impression: 1. Acute pancreatitis. 2. Hepatic stenosis. .
--- NOTE | 2017-09-15 11:07 | History & Physical Report ---
History of Present Illness Date: 09/15/17 Chief complaint: abdominal pain HPI: Patient is a 57 yo female who presented to ED this am with abdominal pain. Sxs x 3 days - progressively worsening. Vomiting this am and diarrhea x several days. Drinks 1-2 fifths of vodka (w/ DrPepper) daily. Had quit for 16 yrs but restarted about a year ago. (She quit cold turkey at that time. States she had withdrawal sxs but no seizures.) Has had pancreatitis x 1 in the past. Takes no regular medications but states she was on oxycontin and methadone through Dr. Singleton but they "parted way" several months ago. States she went through significant withdrawal when coming off of those meds. [facility] shows meds last filled in March. Is on disability for chronic back and leg pain which she states is d/t rheumatoid arthritis. States if she has seen a fermentation scientist, it's been many years ago. She was on atenolol in past for BP but hasn't been taking. She drinks to help with the pain and to deal with stress r/t her mother's Alzheimer's dx. Patient had CT in ER consistent with acute pancreatitis. Lipase elevated. Liver enzymes only slightly elevated. She has had Dilauded 0.5mg x 2, Toradol 30mg IV x1 and a GI cocktail. She continues to have signficant pain. She's had a liter of NS and it continues to run at 125 cc's/hr. UA showed + nitrites. Culture has been set up. Urinary sxs of dysuria and frequency are not present. She has new onset of stress incontinence over the past month. Review of Systems All systems PM: 10-point ROS was reviewed, no additional remarkable complaints except - Constitutional Constitutional: Present: weight gain (over the past year when she started drinking again) - EENMT EENMT Comments: edentulous - Gastrointestinal Gastrointestinal: Present: abdominal pain, change in bowel habits, diarrhea, nausea, vomiting (this am) - Genitourinary Genitourinary: Present: urinary incontinence (w/ coughing or sneezing - just started over the past month.) - Musculoskeletal Musculoskeletal: Present: back pain, other (leg pain) Musculoskeletal Comments: bottom of feet will swell and turn red and hurt. Waxes and wanes. - Integumentary/Breasts Breasts: mass (pt reports recent finding of R breast mass. States she saw Dr. Vick. Plans to f-u with Dr. Perez.) [facility] Medical History HTN Pancreatitis Alcohol dependence Chronic pain Surgical History: b/l lumpectomy (pt reports "precancerous" cells) with removal of lymph nodes per pt (Dr Perez), appy Family History: Father - prostate and lung cancer Mother - breast CA, Alzheimers PGM, MGM - breast CA - Social History Smoking status: Current every day smoker (2-3 cigs per day. Recently quit x 3 mos and picked it back up over the past week.) Substance use type: does not use Alcohol intake: current Alcohol intake frequency: other (1-2 fifths of vodka daily) Housing: apartment Household members: none Current occupation: disabled d/t chronic back and leg pain Social history: no current PCP previous PCP was Dr. Singleton. Pt reports she quit going to him several months ago. Medications Home Medications Medication Instructions Recorded Confirmed Type No known Home medications [No home 09/15/17 09/15/17 History meds] Allergies Allergy/AdvReac Type Severity Reaction Status Date / Time clarithromycin Allergy Mild Verified 09/15/17 09:00 Exam Vital Signs: Temperature 98.3 F 09/15/17 07:20 Pulse Rate 99 09/15/17 10:09 Respiratory Rate 28 H 09/15/17 07:20 Blood Pressure 206/94 H 09/15/17 10:09 Pulse Oximetry 98 09/15/17 07:20 - Constitutional Present: mild distress (appears to be in pain. Groans and holds abdomen when laughing or moving.), well nourished, well developed, obese - Routine HEENT Exam Head: Present: normocephalic, atraumatic Eye: Present: EOMI, PERRL ENT: Present: mucous membranes moist. Absent: dentition normal (edentulous) - Routine Neck Exam Present: supple, full ROM. Absent: lymphadenopathy, thyromegaly - Routine Respiratory Exam Present: CTA bilaterally. Absent: wheezes - Routine Cardiovascular Exam Present: RRR, S1, S2. Absent: murmur - Routine Abdominal Exam Present: soft, normoactive bowel sounds, tenderness (diffuse tenderness. Worst in the L side of the abdomen), non distended - Routine Extremities Exam Present: no edema, normal capillary refill - Routine Skin Exam Present: dry, warm - Routine Neurological Exam Present: alert, oriented X3, CN II-XII intact - Routine Psychiatric Exam Present: normal affect, normal thought process, cooperative Results - Labs CBC & Chem 7: 09/15/17 07:34 09/15/17 07:34 Labs: Laboratory Tests 09/15/17 07:34 AST 62 H ALT 61 H Alkaline Phosphatase 103 Lipase 1894 H Laboratory Tests 09/15/17 08:32 Urine Color Yellow Urine Clarity Sl cloudy Urine pH 5.5 Ur Specific [place] >=1.030 H Urine Protein Trace A Urine Glucose (UA) Negative Urine Ketones Negative Urine Occult Blood Negative Urine Nitrate Positive A Urine Bilirubin Negative Urine Urobilinogen 0.2 Ur Leukocyte Esterase Negative Urine RBC 0-1 Urine WBC 20-30 H Urine WBC Clumps Moderate H Ur Squamous Epith Cells 20-50 Urine Bacteria 2+ H Granular Casts 0-1 WBC Casts 0-1 Laboratory Tests 09/15/17 07:34 Alcohol, Quantitative <10 - Imaging and Cardiology CT scan - abdomen Additional comments: Date of Exam: 09/15/17 Ordering Provider: Son Medina MD Type of Exam(s): CT abdomen pelvis w con Reason for Exam(s): severe abdominal pain, pancreatitis rule out ascites Indication: severe abdominal pain, pancreatitis rule out ascites PROCEDURE: CT abdomen pelvis w con: Encounter: Initial Comparison: CT abdomen and pelvis dated March 28, 2017 Technique: Axial CT images were performed through the abdomen and pelvis after the administration of intravenous contrast. Coronal and sagittal two-dimensional reformats. Automated Exposure Control and Iterative Reconstruction dose reducing techniques were utilized. Contrast: Omnipaque 300 100 mL Findings: The lung bases are clear. Liver is diffusely decreased in attenuation consistent with fatty infiltration. No enhancing liver mass or bile duct dilatation. Gallbladder is mildly distended without discrete stone disease. The spleen is unremarkable. Inflammatory change and stranding surrounding the pancreas is new from the prior study with a small amount of fluid in the paracolic gutter and retroperitoneal space but no significant ascites. Inflammation also extends around the second and third portions of the duodenum. The adrenal glands and kidneys are stable. The pancreas enhances normally. No abdominal or pelvic lymphadenopathy. Bladder appears normal. Uterus is grossly normal. No evidence of a bowel obstruction. Prior appendectomy. Bone windows show no acute findings. Impression: 1. Acute pancreatitis. 2. Hepatic stenosis. Assessment and Plan (1) Pancreatitis Current visit: Yes Status: Acute (2) Urinary tract infection Current visit: Yes Status: Acute Assessment and Plan: Assessment: Abdominal pain-diffuse/severe Acute pancreatitis UTI Alcohol dependence Chronic pain HTN Previous opioid dependence Tobacco abuse Plan: Admit to observation under the hospitalist service, Dr. Danielle attending. NPO. IVF's to maintain hydration. Pain control with IV pain meds. Once able to take po consider Tramadol. Antiemetics IV PRN. Rocephin 1gm IV q 24 for UTI until culture is resulted. Pantoprazole IV for GI prophylaxis and given her h/o etoh use Serax p.o.scheduled and ativan IV PRN alcohol withdrawal sxs. IV metoprolol q 6 hrs for HTN until she can be converted to oral medication Patient declines nicotine patch given she is only smoking 2-3 cigs per day. Patient wishes to be a FULL CODE Will consult social work to aid in finding patient a PCP upon d/c. Pravin Danielle I have independently evaluated and examined this patient. I reviewed the chart, the patient's history, and the SHIRT TRIMMER/PA's documented findings as above. We discussed and formulated the assessment and plan as above with additions as below: This is a 57 yo female who began having abdominal about 3 days ago. She has been drinking 1-2 fifths of vodka daily. She has not been able to eat d/t pain and stopped drinking vodka d/t pain. She has had etoh withdrawal in the past but no seizures. Her pain is diffuse. CT is c/w acute pancreatitis. She has stopped following with Dr. Singleton and has been out of antihypertensives. She has also been having incontinence over the past months. Patient in NAD. Anicteric sclera. CV rrr. Lungs CTAB. Abdomen is diffusely tender, no guarding. No edema. CN II-XII intact. A&O x3 Bowel rest with sips and chips. IV Dilaudid for pain control. Start Rocephin and await urine cx. Will monitor for withdrawal and start Serax with IV Ativan available prn. She says she knows she needs to stop drinking. At this point she wants to quit on her own, as she did years before. Metoprolol iv will be given until she can tolerate pills. DVT Prophylaxis: Lovenox GI Prophylaxis: Protonix Resuscitation Status: Full Code Hospital Course Summary Disclaimer: The visit summary below is not to be considered part of the above Progress Note. Hospital Course: Assessment: Abdominal pain-diffuse/severe Acute pancreatitis UTI Alcohol dependence Chronic pain HTN Previous opioid dependence Tobacco abuse 09/15/17 - hospital admission for observation Admit to observation under the hospitalist service, Dr. Danielle attending. NPO. IVF's to maintain hydration. Pain control with IV pain meds. Once able to take po consider Tramadol. Antiemetics IV PRN. Rocephin 1gm IV q 24 for UTI until culture is resulted. Serax p.o.scheduled and ativan IV PRN alcohol withdrawal sxs. IV metoprolol q 6 hrs for HTN until she can be converted to oral medication Patient declines nicotine patch given she is only smoking 2-3 cigs per day. Patient wishes to be a FULL CODE Will consult social work to aid in finding patient a PCP upon d/c. 09/15/17 15:11 Bowel rest with sips and chips. IV Dilaudid for pain control. Start Rocephin and await urine cx. Will monitor for withdrawal and start Serax with IV Ativan available prn. She says she knows she needs to stop drinking. At this point she wants to quit on her own, as she did years before. Metoprolol iv will be given until she can tolerate pills.
[2017-09-15 11:43] VITALS: BMI 38.5
[2017-09-15] MEDS ORDERED: INFLUENZA VAC QIV 2017-18 (Fluarix*)(>=3yo) 0.5ml IM ONE (12:07)
[2017-09-15] MEDS ORDERED: INFLUENZA VAC. INJ. ADMIN CHARGE INJ ONE (12:39)
[2017-09-15] MEDS: CEFTRIAXONE 1 G in NS 100 ML IV SCH (12:41)
[2017-09-15] MEDS: ENOXAPARIN 40 MG/0.4 ML INJECTION SQ SCH (12:41)
[2017-09-15] MEDS: OXAZEPAM 15 MG CAPSULE PO SCH ×4 (12:42→20:12)
[2017-09-15] MEDS: HYDROMORPHONE 2 MG/ML INJECTION IVP PRN ×5 (12:52→23:41)
[2017-09-15] MEDS: METOPROLOL 5mg/5ml INJECTION IVP SCH ×2 (12:53→18:24)
[2017-09-15] MEDS ORDERED: METOPROLOL 5mg/5ml INJECTION IVP SCH (15:00)
[2017-09-15] MEDS ORDERED: PANTOPRAZOLE 40 MG INJECTION IVP ONE (17:45)
[2017-09-16] MEDS: METOPROLOL 5mg/5ml INJECTION IVP SCH ×2 (00:53→06:27)
[2017-09-16] MEDS: SALINE FLUSH 10ml SYRINGE IVF PRN (02:02)
[2017-09-16] MEDS: HYDROMORPHONE 2 MG/ML INJECTION IVP PRN ×8 (02:02→20:36)
[2017-09-16] MEDS: NS 1,000 ML IV SCH ×3 (03:47→22:16)
[2017-09-16] MEDS: ONDANSETRON 4 MG/2 ML INJECTION IVP PRN ×2 (06:27→11:57)
--- NOTE | 2017-09-16 08:29 | Progress Note ---
<Jada Wu D - Last Filed: 09/16/17 09:15> - Date 09/16/17 Subjective: Amisha is complaining of severe pain - she notes the most severe pain is both to the left side of her back and the left side of her abdomen, and to a slightly lesser extent, her entire abdomen is painful. The current dose of Dilaudid isn' t much helpful. She denies dizziness, weakness, or nausea. Her only apparent sign of alcohol w/drawal is that she feels a little shaky. She is also having some anxiety, and has used the PRN lorazepam. She understands the rationale for being NPO. Objective Vital signs: Temperature 98.3 F 09/16/17 07:58 Pulse Rate 101 H 09/16/17 07:58 Respiratory Rate 2 L 09/16/17 07:58 Blood Pressure 147/69 H 09/16/17 07:58 Pulse Oximetry 95 09/16/17 07:58 Height/Weight/BMI: Height 1.75 m Weight 120.6 kg Body Mass Index 38.5 - Constitutional Present: no acute distress, well nourished, well developed, obese - Routine HEENT Exam ENT: Present: mucous membranes moist, oropharynx clear. Absent: dentition normal (edentulous) - Routine Respiratory Exam Present: CTA bilaterally - Routine Cardiovascular Exam Present: RRR, S1, S2 - Routine Abdominal Exam Present: tenderness (diffuse; worse RUQ, epigastric; LUQ), distended, guarding ( RUQ, epigastric LUQ). Absent: normoactive bowel sounds (hypoactive) - Routine Extremities Exam Present: no edema - Routine Musculoskeletal Exam Musculoskeletal: Present: moving extremities well - Routine Skin Exam Present: intact, dry, warm - Routine Neurological Exam Present: alert, oriented X3, CN II-XII intact, normal speech - Routine Psychiatric Exam Present: normal affect, normal thought process, cooperative Results - Labs CBC & Chem 7: 09/16/17 04:30 09/16/17 04:30 Assessment and Plan (1) Pancreatitis Current visit: Yes Status: Acute (2) Urinary tract infection Current visit: Yes Status: Acute Assessment and Plan: Assessment: Abdominal pain-diffuse/severe Acute pancreatitis UTI Alcohol dependence Chronic pain HTN Previous opioid dependence Tobacco abuse Hepatic steatosis Plan: Lipase increased today to 3506 and WBC increased significantly to 19.6. CT report reviewed - inflammation extends around the duodenum, which may account for the LUQ pain/guarding. Continue bowel rest/NPO. Continue NS at 125 ml/hr - K stable. UTI - cont Rocephin, day #2 - with jump in WBC may need to consider expanding abx to cover for GI sources - will discuss with attending. Pain elevated - increase Dilaudid to 1-2 mg q2h. HTN with elevated BP & she is tachycardic - could be pain response - if no improvement with increased Dilaudid dose may need to consider adding another agent besides IV Metoprolol. EtOH w/drawal - c/o mild shakiness; cont. Serax taper. Anxiety - lorazepam PRN. LFTs trending down. High risk meds: IV Dilaudid; IV lorazepam. DVT Prophylaxis: Lovenox GI Prophylaxis: Protonix Resuscitation Status: Full Code Hospital Course Summary Disclaimer: The visit summary below is not to be considered part of the above Progress Note. Hospital Course: Assessment: Abdominal pain-diffuse/severe Acute pancreatitis UTI Alcohol dependence Chronic pain HTN Previous opioid dependence Tobacco abuse 09/15/17 - hospital admission for observation Admit to observation under the hospitalist service, Dr. Danielle attending. NPO. IVF's to maintain hydration. Pain control with IV pain meds. Once able to take po consider Tramadol. Antiemetics IV PRN. Rocephin 1gm IV q 24 for UTI until culture is resulted. Serax p.o.scheduled and ativan IV PRN alcohol withdrawal sxs. IV metoprolol q 6 hrs for HTN until she can be converted to oral medication Patient declines nicotine patch given she is only smoking 2-3 cigs per day. Patient wishes to be a FULL CODE Will consult social work to aid in finding patient a PCP upon d/c. 09/15/17 15:11 Bowel rest with sips and chips. IV Dilaudid for pain control. Start Rocephin and await urine cx. Will monitor for withdrawal and start Serax with IV Ativan available prn. She says she knows she needs to stop drinking. At this point she wants to quit on her own, as she did years before. Metoprolol iv will be given until she can tolerate pills. 09/16/17 Lipase increased today to 3506 and WBC increased significantly to 19.6. CT report reviewed - inflammation extends around the duodenum, which may account for the LUQ pain/guarding. Continue bowel rest/NPO. Continue NS at 125 ml/hr - K stable. UTI - cont Rocephin, day #2 - with jump in WBC may need to consider expanding abx to cover for GI sources - will discuss with attending. Pain elevated - increase Dilaudid to 1-2 mg q2h. HTN with elevated BP & she is tachycardic - could be pain response - if no improvement with increased Dilaudid dose may need to consider adding another agent besides IV Metoprolol. EtOH w/drawal - c/o mild shakiness; cont. Serax taper. Anxiety - lorazepam PRN. LFTs trending down. <Bakari Danielle IV - Last Filed: 09/16/17 12:14> - Date 09/16/17 Objective Vital signs: Temperature 98.3 F 09/16/17 07:58 Pulse Rate 101 H 09/16/17 07:58 Respiratory Rate 2 L 09/16/17 07:58 Blood Pressure 147/69 H 09/16/17 07:58 Pulse Oximetry 95 09/16/17 07:58 Height/Weight/BMI: Height 5 ft 9 in Weight 120.6 kg Body Mass Index 38.5 Results - Labs CBC & Chem 7: 09/16/17 04:30 09/16/17 04:30 Assessment and Plan (1) Pancreatitis Current visit: Yes Status: Acute (2) Urinary tract infection Current visit: Yes Status: Acute Assessment and Plan: I have independently evaluated and examined this patient. I reviewed the chart, the patient's history, and the AGRONOMY SUPERVISOR/PA's documented findings as above. We discussed and formulated the assessment and plan as above with additions as below: Patient says pain is worse. She is not getting much relief from iv dilaudid and is having nausea. She asks for Sprite. She is in mild distress. CTAB. RRR, s1, s2. Abdomen is distended not as tender today with hypoactive bowel sounds. No edema Will make Percocet available along with increasing amount of Dilaudid. Will let her try clears. Add Reglan to prn antiemetic regimen. She is afebrile. Will monitor WBC. E. coli id'd in urine. Continue Rocephin pending sensitivities. Minimal signs of withdrawal. Will considering starting serax taper tomorrow. BP remains elevated. Will switch to po Metoprolol. Hospital Course Summary Disclaimer: The visit summary below is not to be considered part of the above Progress Note. Hospital Course: 09/16/17 12:14 Will make Percocet available along with increasing amount of Dilaudid. Will let her try clears. Add Reglan to prn antiemetic regimen. She is afebrile. Will monitor WBC. E. coli id'd in urine. Continue Rocephin pending sensitivities. Minimal signs of withdrawal. Will considering starting serax taper tomorrow. BP remains elevated. Will switch to po Metoprolol.
[2017-09-16] MEDS: OXAZEPAM 15 MG CAPSULE PO SCH ×4 (08:35→20:37)
[2017-09-16] MEDS: ENOXAPARIN 40 MG/0.4 ML INJECTION SQ SCH (08:36)
[2017-09-16] MEDS: PANTOPRAZOLE 40 MG INJECTION IVP SCH ×2 (08:37→20:36)
[2017-09-16] MEDS ORDERED: METOCLOPRAMIDE 10mg/2ml INJECTION IVP PRN (11:57)
[2017-09-16] MEDS: CEFTRIAXONE 1 G in NS 100 ML IV SCH (13:02)
[2017-09-17] MEDS: HYDROMORPHONE 2 MG/ML INJECTION IVP PRN ×6 (00:04→23:31)
[2017-09-17] MEDS: ONDANSETRON 4 MG/2 ML INJECTION IVP PRN (01:14)
[2017-09-17] MEDS: NS 1,000 ML IV SCH ×3 (04:35→14:22)
[2017-09-17] MEDS: OXAZEPAM 15 MG CAPSULE PO SCH ×4 (09:02→23:45)
[2017-09-17] MEDS: ENOXAPARIN 40 MG/0.4 ML INJECTION SQ SCH (09:03)
[2017-09-17] MEDS: PANTOPRAZOLE 40 MG INJECTION IVP SCH ×2 (09:03→20:27)
[2017-09-17] MEDS: Oxycodone/Apap 10/325 1 TAB PO PRN ×3 (09:03→21:33)
[2017-09-17] MEDS: CEFTRIAXONE 1 G in NS 100 ML IV SCH (12:06)
--- NOTE | 2017-09-17 15:36 | Progress Note ---
- Date 09/17/17 Subjective: Radha c/o continued abdominal pain. d/w her that the Percocet will last longer than the Dilaudid. Has been able to keep down part of a popsicle and some water today. No fever or chills. She ambulates in the halls. Objective Vital signs: Temperature 98.3 F 09/17/17 07:47 Pulse Rate 109 H 09/17/17 07:47 Respiratory Rate 20 09/17/17 07:47 Blood Pressure 140/88 H 09/17/17 07:47 Pulse Oximetry 92 09/17/17 07:47 Height/Weight/BMI: Height 5 ft 9 in Weight 124.6 kg Body Mass Index 38.5 - Constitutional Present: well nourished, well developed - Routine HEENT Exam Eye: Present: EOMI ENT: Present: mucous membranes moist, dentition normal - Routine Respiratory Exam Present: CTA bilaterally. Absent: wheezes - Routine Cardiovascular Exam Present: RRR. Absent: murmur - Routine Abdominal Exam Present: tenderness, distended. Absent: rebound, guarding - Routine Extremities Exam Present: no edema Results - Labs CBC & Chem 7: 09/17/17 05:06 09/17/17 05:06 Assessment and Plan (1) Pancreatitis Current visit: Yes Status: Acute (2) Urinary tract infection Current visit: Yes Status: Acute Assessment and Plan: Assessment: Abdominal pain-diffuse/severe Acute pancreatitis UTI Alcohol dependence Chronic pain HTN Previous opioid dependence Tobacco abuse Plan Will keep Dilaudid for breakthrough pain and encourage Percocet for longer pain control. Tolerating some liquids. Decrease IVF. WBC trending up with increase in bands. She is afebrile. On ceftriaxone for UTI. Continue to follow CBC. No sx of etoh withdrawal. Will decrease Serax. BP is better today. Replace K in ivf. Hospital Course Summary Disclaimer: The visit summary below is not to be considered part of the above Progress Note. Hospital Course: 09/16/17 12:14 Will make Percocet available along with increasing amount of Dilaudid. Will let her try clears. Add Reglan to prn antiemetic regimen. She is afebrile. Will monitor WBC. E. coli id'd in urine. Continue Rocephin pending sensitivities. Minimal signs of withdrawal. Will considering starting serax taper tomorrow. BP remains elevated. Will switch to po Metoprolol. 09/17/17 15:57 Will keep Dilaudid for breakthrough pain and encourage Percocet for longer pain control. Tolerating some liquids. Decrease IVF. WBC trending up with increase in bands. She is afebrile. On ceftriaxone for UTI. Continue to follow CBC. No sx of etoh withdrawal. Will decrease Serax. BP is better today. Replace K in ivf.
[2017-09-17] MEDS ORDERED: POTASSIUM CHLORIDE INJ 20 MEQ in NS 1,000 ML IV SCH (15:56)
[2017-09-17] MEDS: NS with KCL 20 mEq 1,000 ML IV SCH (16:43)
[2017-09-18] MEDS: Oxycodone/Apap 10/325 1 TAB PO PRN ×5 (02:30→23:17)
[2017-09-18] MEDS: HYDROMORPHONE 2 MG/ML INJECTION IVP PRN ×4 (03:18→20:01)
[2017-09-18] MEDS: NS with KCL 20 mEq 1,000 ML IV SCH ×2 (06:28→15:23)
[2017-09-18] MEDS: OXAZEPAM 15 MG CAPSULE PO SCH ×2 (08:06→20:01)
[2017-09-18] MEDS: ENOXAPARIN 40 MG/0.4 ML INJECTION SQ SCH (10:20)
[2017-09-18] MEDS: PANTOPRAZOLE 40 MG INJECTION IVP SCH ×2 (10:21→20:01)
[2017-09-18] MEDS: CEFTRIAXONE 1 G in NS 100 ML IV SCH (15:16)
--- NOTE | 2017-09-18 17:00 | Progress Note ---
- Date 09/18/17 Subjective: Pt reports continued abd discomfort. Pt has not eaten yet so unsure if she will be able to tolerate PO. Denies any f/c, n/v. Objective Vital signs: Temperature 97.2 F 09/18/17 15:33 Pulse Rate 94 09/18/17 15:33 Respiratory Rate 18 09/18/17 15:33 Blood Pressure 130/73 09/18/17 15:33 Pulse Oximetry 98 09/18/17 15:33 Rhythm: Normal Sinus Rhythm Height/Weight/BMI: Height 5 ft 9 in Weight 129.8 kg Body Mass Index 38.5 - Constitutional Present: no acute distress, well nourished, well developed - Routine HEENT Exam Head: Present: normocephalic, atraumatic Eye: Present: EOMI ENT: Present: mucous membranes moist - Routine Respiratory Exam Present: CTA bilaterally - Routine Cardiovascular Exam Present: RRR, no murmur - Routine Abdominal Exam Present: tenderness, distended. Absent: rebound, guarding - Routine Extremities Exam Present: no edema. Absent: cyanosis, clubbing - Routine Skin Exam Present: intact, dry. Absent: erythema - Routine Neurological Exam Present: alert, oriented X3 Results - Labs CBC & Chem 7: 09/17/17 05:06 09/17/17 05:06 Assessment and Plan (1) Pancreatitis Current visit: Yes Status: Acute (2) Urinary tract infection Current visit: Yes Status: Acute Assessment and Plan: Pancreatitis 2/2 EtOH abuse -IV fluids, ADAT, pain control -Will go down on dilaudid dosing, cont. oxycodone Q4H PRN Leukocytosis -Likely 2/2 pancreatitis -Will order CRP, procal -Will cont. to monitor HTN -Cont. home metoprolol UTI -On rocephin EtOH Abuse -Reports last drink 3-4 days ago -Likely out of withdrawal window -Will start to go down on serax DVT ppx -Lovenox Hospital Course Summary Disclaimer: The visit summary below is not to be considered part of the above Progress Note. Hospital Course: 09/16/17 12:14 Will make Percocet available along with increasing amount of Dilaudid. Will let her try clears. Add Reglan to prn antiemetic regimen. She is afebrile. Will monitor WBC. E. coli id'd in urine. Continue Rocephin pending sensitivities. Minimal signs of withdrawal. Will considering starting serax taper tomorrow. BP remains elevated. Will switch to po Metoprolol. 09/17/17 15:57 Will keep Dilaudid for breakthrough pain and encourage Percocet for longer pain control. Tolerating some liquids. Decrease IVF. WBC trending up with increase in bands. She is afebrile. On ceftriaxone for UTI. Continue to follow CBC. No sx of etoh withdrawal. Will decrease Serax. BP is better today. Replace K in ivf. 09/18/17 17:00 Pt not doing that much better. Will cont. to do supportive tx for pancreatitis and monitor.
[2017-09-18] MEDS: SALINE FLUSH 10ml SYRINGE IVF PRN (20:04)
[2017-09-18] MEDS: SENNA + DOCUSATE TABLET PO SCH (20:07)
[2017-09-19] MEDS: HYDROMORPHONE 2 MG/ML INJECTION IVP PRN ×3 (02:19→16:14)
[2017-09-19] MEDS: NS with KCL 20 mEq 1,000 ML IV SCH ×3 (02:54→23:19)
[2017-09-19] MEDS: ONDANSETRON 4 MG/2 ML INJECTION IVP PRN (04:13)
[2017-09-19] MEDS: Oxycodone/Apap 10/325 1 TAB PO PRN ×4 (04:14→20:16)
[2017-09-19] MEDS: PANTOPRAZOLE 40 MG INJECTION IVP SCH ×2 (08:05→20:15)
[2017-09-19] MEDS: OXAZEPAM 15 MG CAPSULE PO SCH ×3 (08:06→22:14)
[2017-09-19] MEDS: SENNA + DOCUSATE TABLET PO SCH ×2 (08:06→20:16)
[2017-09-19] MEDS: ENOXAPARIN 40 MG/0.4 ML INJECTION SQ SCH (08:06)
--- NOTE | 2017-09-19 12:21 | Progress Note ---
- Date 09/19/17 Subjective: Pt reports she is starting to feel better. Pt tolerating liquid diet well. Still has abdominal pain but n/v has improved. Denies any f/c. Objective Vital signs: Temperature 98.2 F 09/19/17 07:44 Pulse Rate 101 H 09/19/17 07:44 Respiratory Rate 20 09/19/17 07:44 Blood Pressure 143/69 H 09/19/17 07:44 Pulse Oximetry 99 09/19/17 07:44 Rhythm: Normal Sinus Rhythm Height/Weight/BMI: Height 5 ft 9 in Weight 132 kg Body Mass Index 38.5 - Constitutional Present: no acute distress - Routine HEENT Exam Head: Present: normocephalic, atraumatic Eye: Present: EOMI ENT: Present: mucous membranes moist - Routine Respiratory Exam Present: CTA bilaterally - Routine Cardiovascular Exam Present: RRR, no murmur - Routine Abdominal Exam Present: soft, tenderness, distended - Routine Extremities Exam Present: edema. Absent: cyanosis, clubbing - Routine Skin Exam Present: intact, dry. Absent: erythema - Routine Neurological Exam Present: alert, oriented X3 Results - Labs CBC & Chem 7: 09/19/17 07:25 09/19/17 07:25 Assessment and Plan (1) Pancreatitis Current visit: Yes Status: Acute (2) Urinary tract infection Current visit: Yes Status: Acute Assessment and Plan: Pancreatitis 2/2 EtOH abuse -IV fluids, ADAT, pain control -Will go down on dilaudid dosing, cont. oxycodone Q4H PRN Leukocytosis -Likely 2/2 pancreatitis, trending down -Will order CRP, procal -Will cont. to monitor HTN -Cont. home metoprolol UTI -On rocephin D4/5 -Cx showed E. coli susp to rocephin EtOH Abuse -Reports last drink 3-4 days ago -Likely out of withdrawal window -Will start to go down on serax DVT ppx -Lovenox Hospital Course Summary Disclaimer: The visit summary below is not to be considered part of the above Progress Note. Hospital Course: 09/16/17 12:14 Will make Percocet available along with increasing amount of Dilaudid. Will let her try clears. Add Reglan to prn antiemetic regimen. She is afebrile. Will monitor WBC. E. coli id'd in urine. Continue Rocephin pending sensitivities. Minimal signs of withdrawal. Will considering starting serax taper tomorrow. BP remains elevated. Will switch to po Metoprolol. 09/17/17 15:57 Will keep Dilaudid for breakthrough pain and encourage Percocet for longer pain control. Tolerating some liquids. Decrease IVF. WBC trending up with increase in bands. She is afebrile. On ceftriaxone for UTI. Continue to follow CBC. No sx of etoh withdrawal. Will decrease Serax. BP is better today. Replace K in ivf. 09/18/17 17:00 Pt not doing that much better. Will cont. to do supportive tx for pancreatitis and monitor. 09/19/17 12:21 Pt reports she is improving. Will cont. abx for uti, supportive tx for pancreatitis and titrate down pain meds d/t constipation and previous hx of opiate abuse.
[2017-09-19] MEDS: CEFTRIAXONE 1 G in NS 100 ML IV SCH (13:03)
[2017-09-19] MEDS ORDERED: POLYETHYL. GLYCOL 3350 BOTTLE 238 GM PO SCH (16:15)
[2017-09-19] MEDS: SALINE FLUSH 10ml SYRINGE IVF PRN (20:16)
[2017-09-20] MEDS: HYDROMORPHONE 2 MG/ML INJECTION IVP PRN ×2 (00:42→09:17)
[2017-09-20] MEDS: Oxycodone/Apap 10/325 1 TAB PO PRN ×5 (01:50→23:12)
--- NOTE | 2017-09-20 08:20 | Progress Note ---
<Jada Wu D - Last Filed: 09/20/17 08:15> - Date 09/20/17 Subjective: Amisha is still having a lot of pain, but it's a little better - now rates it versus 08/10. She has chronic back pain, which at baseline is 5-6/10. She had a BM yesterday. Her nausea has resolved and she inquires about advancing diet. She denies SOA. No oral sores. She has been up and walking the halls. She hasn't been sleeping well. Objective Vital signs: Temperature 97 F 09/20/17 07:32 Pulse Rate 101 H 09/20/17 07:32 Respiratory Rate 16 09/20/17 07:32 Blood Pressure 165/73 H 09/20/17 07:32 Pulse Oximetry 100 09/20/17 07:32 Rhythm: Normal Sinus Rhythm Height/Weight/BMI: Height 1.75 m Weight 136.3 kg Body Mass Index 38.5 - Constitutional Present: no acute distress, well nourished, well developed, morbidly obese - Routine HEENT Exam ENT: Present: mucous membranes dry. Absent: dentition normal (edentulous) - Routine Respiratory Exam Present: CTA bilaterally - Routine Cardiovascular Exam Present: RRR, S1, S2 - Routine Abdominal Exam Present: soft, normoactive bowel sounds, non distended, non tender - Routine Extremities Exam Present: no edema - Routine Musculoskeletal Exam Musculoskeletal: Absent: limited range of motion - Routine Skin Exam Present: intact, dry, warm - Routine Neurological Exam Present: alert, oriented X3 - Routine Psychiatric Exam Present: normal affect, normal thought process, cooperative Results - Labs CBC & Chem 7: 09/20/17 04:38 09/20/17 04:38 Assessment and Plan (1) Pancreatitis Current visit: Yes Status: Acute (2) Urinary tract infection Current visit: Yes Status: Acute Assessment and Plan: 09/20/17 Pancreatitis 2/2 EtOH abuse -IV fluids, ADAT, pain control -Will go down on dilaudid dosing, cont. oxycodone Q4H PRN -abd distention - BM 09/19; encourage activity; Senna Plus BID; MiraLAX daily; MOM PRN Hypokalemia -Replace orally + NS with KCl Leukocytosis + bandemia -Likely 2/2 pancreatitis, trending down -Will order CRP, procal -Will cont. to monitor HTN -Some elevation seen, mild tachycardia - consider increasing metoprolol UTI -On rocephin D6 - dc after today -Cx showed E. coli susp to rocephin EtOH Abuse -Likely out of withdrawal window -Will start to go down on serax DVT ppx -Lovenox DVT Prophylaxis: Lovenox GI Prophylaxis: Protonix Resuscitation Status: Full Code Hospital Course Summary Disclaimer: The visit summary below is not to be considered part of the above Progress Note. Hospital Course: 09/16/17 12:14 Will make Percocet available along with increasing amount of Dilaudid. Will let her try clears. Add Reglan to prn antiemetic regimen. She is afebrile. Will monitor WBC. E. coli id'd in urine. Continue Rocephin pending sensitivities. Minimal signs of withdrawal. Will considering starting serax taper tomorrow. BP remains elevated. Will switch to po Metoprolol. 09/17/17 15:57 Will keep Dilaudid for breakthrough pain and encourage Percocet for longer pain control. Tolerating some liquids. Decrease IVF. WBC trending up with increase in bands. She is afebrile. On ceftriaxone for UTI. Continue to follow CBC. No sx of etoh withdrawal. Will decrease Serax. BP is better today. Replace K in ivf. 09/18/17 17:00 Pt not doing that much better. Will cont. to do supportive tx for pancreatitis and monitor. 09/19/17 12:21 Pt reports she is improving. Will cont. abx for uti, supportive tx for pancreatitis and titrate down pain meds d/t constipation and previous hx of opiate abuse. 09/20/17 Pancreatitis - supportive care. K slightly low; leukocytosis/bandemia improving. Rocephin DC'd for E. coli UTI. <Alan Hogan - Last Filed: 09/20/17 17:57> - Date 09/20/17 Objective Vital signs: Temperature 98.6 F 09/20/17 16:15 Pulse Rate 99 09/20/17 16:15 Respiratory Rate 14 09/20/17 16:15 Blood Pressure 159/67 H 09/20/17 16:15 Pulse Oximetry 93 09/20/17 16:15 Height/Weight/BMI: Height 5 ft 9 in Weight 136.3 kg Body Mass Index 38.5 Results - Labs CBC & Chem 7: 09/20/17 04:38 09/20/17 04:38 Assessment and Plan (1) Pancreatitis Current visit: Yes Status: Acute (2) Urinary tract infection Current visit: Yes Status: Acute Assessment and Plan: S: Pt reports she's slowly improving but abdominal distention not improving. Denies any n/v, f/c. Reports tolerating PO intake well and wants to advance diet. O: Gen: alert and oriented Cards: RRR without murmurs Lungs: CTAB, no wheezes Abd: distended, mild-moderate tenderness, hypoactive bowel sounds Skin: dry, intact A/P: Pt improving slowly but seems to be making progress. Pt is tolerating liquid diet well but seems to be getting some distension in the stomach. Will do KUB and possibly may need to slow down diet and bowel regimen if concern for ileus. Hospital Course Summary Disclaimer: The visit summary below is not to be considered part of the above Progress Note.
[2017-09-20] MEDS ORDERED: POLYETHYL GLYCOL 3350 17gm PACKET PO SCH (09:00)
[2017-09-20] MEDS: ENOXAPARIN 40 MG/0.4 ML INJECTION SQ SCH (09:13)
[2017-09-20] MEDS: SENNA + DOCUSATE TABLET PO SCH ×2 (09:13→21:52)
[2017-09-20] MEDS: OXAZEPAM 15 MG CAPSULE PO SCH (09:14)
--- NOTE | 2017-09-20 11:09 | XRay Report ---
EXAM: XR KUB w upright COMPARISON: CT abdomen and pelvis from 09/15/2017, 03/20/2017, 12/14/2015, 10/14/2010. HISTORY: abdominal pain . FINDINGS: Moderate amount of stool and air seen throughout the colon. Some air-filled loops of nondilated large and small bowel are noted. The heart is enlarged. The visceral organ outlines appear unremarkable. IMPRESSION: Some air-filled loops of nondilated large and small bowel are noted which could represent a mild ileus. Clinical correlation is suggested. LOCATION OF DICTATION: [facility] – [place] .
[2017-09-20] MEDS: CEFTRIAXONE 1 G in NS 100 ML IV SCH (13:27)
[2017-09-20] MEDS ORDERED: OXAZEPAM 15 MG CAPSULE PO SCH (17:45)
[2017-09-20] MEDS: PANTOPRAZOLE 20 MG TABLET PO SCH (18:35)
[2017-09-20] MEDS: MORPHINE SULFATE 2mg INJECTION IVP PRN (18:36)
[2017-09-20] MEDS: SALINE FLUSH 10ml SYRINGE IVF PRN (21:52)
[2017-09-21] MEDS: Oxycodone/Apap 10/325 1 TAB PO PRN ×5 (03:23→20:04)
[2017-09-21] MEDS: MORPHINE SULFATE 2mg INJECTION IVP PRN (03:23)
[2017-09-21] MEDS: PANTOPRAZOLE 20 MG TABLET PO SCH ×2 (06:44→17:11)
[2017-09-21] MEDS ORDERED: BISACODYL 10 MG SUPPOSITORY RECTALLY PRN (07:32)
[2017-09-21] MEDS: SENNA + DOCUSATE TABLET PO SCH ×2 (09:01→20:04)
[2017-09-21] MEDS: ENOXAPARIN 40 MG/0.4 ML INJECTION SQ SCH (09:02)
--- NOTE | 2017-09-21 13:08 | Progress Note ---
<Yajaira Venegas V - Last Filed: 09/21/17 13:04> - Date 09/21/17 Subjective: Radha is seen today in follow up. She is resting in bed with SO at the bedside. She reports continues to have her chronic back pain approximately at baseline. Requiring scheduled Percocet. Abdomen continues to be somewhat distended, however, she denies having abdominal pain on palpation. She was given a suppository as well as milk of magnesia, and senna plus this morning. She did have 3 Moderate-sized bowel movements following this regimen. Weight is documented to be up 32lbs since admission. Objective Vital signs: Temperature 97.5 F 09/21/17 07:22 Pulse Rate 95 09/21/17 07:22 Respiratory Rate 20 09/21/17 07:22 Blood Pressure 165/74 H 09/21/17 09:24 Pulse Oximetry 99 09/21/17 07:22 Rhythm: Normal Sinus Rhythm Height/Weight/BMI: Height 1.75 m Weight 132.5 kg Body Mass Index 38.5 - Constitutional Present: no acute distress, well nourished, well developed - Routine HEENT Exam Eye: Present: EOMI ENT: Present: mucous membranes moist, dentition normal - Routine Respiratory Exam Present: CTA bilaterally. Absent: wheezes - Routine Cardiovascular Exam Present: RRR, S1, S2. Absent: murmur - Routine Abdominal Exam Present: soft, distended. Absent: normoactive bowel sounds (hypoactive), tenderness, non distended - Routine Extremities Exam Present: normal capillary refill - Routine Skin Exam Present: dry, warm - Routine Neurological Exam Present: alert, oriented X3, CN II-XII intact, moving all extremities - Routine Lymphatic Exam Lymphatic: Absent: adenopathy - Routine Psychiatric Exam Present: normal affect, cooperative Results - Labs CBC & Chem 7: 09/21/17 04:49 09/21/17 04:49 Assessment and Plan (1) Pancreatitis Current visit: Yes Status: Acute (2) Urinary tract infection Current visit: Yes Status: Acute Assessment and Plan: Impression Pancreatitis Urinary tract infection, pansensitive Escherichia coli Hypokalemia Hypertension History of alcohol abuse. Plan Overall abdomen is more distended without without significant tenderness. She did have 3 moderated bowel movements this morning. Continue with bowel motivation. Have asked nursing staff to re-weigh today and follow weights closely. Wt documented as 32lbs up since admission. Completed 5 day course of IV Rocephin for pansensitive urinary tract infection. Discontinued more finding and the allotted to minimize IV opiate use. May continue with scheduled Percocet for chronic back pain. Oral potassium supplementation BID. Encouraged ambulation QID. Recheck labs tomorrow Hospital Course Summary Disclaimer: The visit summary below is not to be considered part of the above Progress Note. Hospital Course: 09/16/17 12:14 Will make Percocet available along with increasing amount of Dilaudid. Will let her try clears. Add Reglan to prn antiemetic regimen. She is afebrile. Will monitor WBC. E. coli id'd in urine. Continue Rocephin pending sensitivities. Minimal signs of withdrawal. Will considering starting serax taper tomorrow. BP remains elevated. Will switch to po Metoprolol. 09/17/17 15:57 Will keep Dilaudid for breakthrough pain and encourage Percocet for longer pain control. Tolerating some liquids. Decrease IVF. WBC trending up with increase in bands. She is afebrile. On ceftriaxone for UTI. Continue to follow CBC. No sx of etoh withdrawal. Will decrease Serax. BP is better today. Replace K in ivf. 09/18/17 17:00 Pt not doing that much better. Will cont. to do supportive tx for pancreatitis and monitor. 09/19/17 12:21 Pt reports she is improving. Will cont. abx for uti, supportive tx for pancreatitis and titrate down pain meds d/t constipation and previous hx of opiate abuse. 09/20/17 Pancreatitis - supportive care. K slightly low; leukocytosis/bandemia improving. Rocephin DC'd for E. coli UTI. 09/21/17 Plan Overall abdomen is more distended without without significant tenderness. She did have 3 moderated bowel movements this morning. Continue with bowel motivation. Have asked nursing staff to re-weigh today and follow weights closely. Wt documented as 32lbs up since admission. Completed 5 day course of IV Rocephin for pansensitive urinary tract infection. Discontinued more finding and the allotted to minimize IV opiate use. May continue with scheduled Percocet for chronic back pain. Oral potassium supplementation BID. Encouraged ambulation QID. Recheck labs tomorrow <Alan Hogan - Last Filed: 09/21/17 15:20> - Date 09/21/17 Objective Vital signs: Temperature 98.0 F 09/21/17 15:14 Pulse Rate 93 09/21/17 15:14 Respiratory Rate 18 09/21/17 15:14 Blood Pressure 145/76 H 09/21/17 15:14 Pulse Oximetry 97 09/21/17 15:14 Height/Weight/BMI: Height 5 ft 9 in Weight 128.9 kg Body Mass Index 38.5 Results - Labs CBC & Chem 7: 09/21/17 04:49 09/21/17 04:49 Assessment and Plan (1) Pancreatitis Current visit: Yes Status: Acute (2) Urinary tract infection Current visit: Yes Status: Acute Assessment and Plan: S: Pt reports she's slowly improving but still has abd distention. Pt having BMs and has no trouble tolerating PO intake. Denies any n/v/d, f/c, cp or sob. O: Gen: alert and oriented, no acute distress Card: RRR without murmurs Lungs: CTAB, no wheezes Skin: no rash, dry A/P: Will cont. to do gentle bowel regimen. Pt seems to be having good gut motility with multiple BMs and eating well. Will cont. to trend pain meds down. D/c serax. Hospital Course Summary Disclaimer: The visit summary below is not to be considered part of the above Progress Note.
[2017-09-21 15:15] VITALS: RESP 18
[2017-09-21] MEDS: NS with KCL 20 mEq 1,000 ML IV SCH (16:40)
[2017-09-21] MEDS: SALINE FLUSH 10ml SYRINGE IVF PRN (20:04)
[2017-09-22] MEDS: Oxycodone/Apap 10/325 1 TAB PO PRN ×4 (00:18→12:38)
[2017-09-22] MEDS: PANTOPRAZOLE 20 MG TABLET PO SCH (06:46)
[2017-09-22 08:15] VITALS: BP 151/83; PULSE 90; TEMP 97.2; O2SAT 95
[2017-09-22] MEDS: SENNA + DOCUSATE TABLET PO SCH (08:15)
[2017-09-22] MEDS: ENOXAPARIN 40 MG/0.4 ML INJECTION SQ SCH (08:16)
--- NOTE | 2017-09-22 08:35 | XRay Report ---
Indication: abd distension PROCEDURE: XR KUB w upright: Encounter: Initial Comparison: September 20, 2017 Findings: The visualized lung bases are clear. There is no free air on the upright view. The bowel gas pattern is nonobstructive and nonspecific. Gas is seen in nondilated small and large bowel to the level of the rectum. Moderate stool is seen throughout the colon. The bony structures are grossly unremarkable. Impression: Nonobstructive nonspecific bowel gas pattern. .
--- NOTE | 2017-09-22 10:33 | Discharge Summary ---
<Yajaira Venegas V - Last Filed: 09/22/17 10:29> Discharge Information Date of admission: 09/15/17 10:51 Anticipated date of discharge: 09/22/17 Attending Physician: Alan Hogan MD Primary care physician: None Consults: None - Discharge Diagnosis (1) Pancreatitis Status: Acute (2) Urinary tract infection Status: Acute Pancreatitis Urinary tract infection, pansensitive Escherichia coli- Resolved Hypokalemia- stable Constipation Hypertension History of alcohol abuse. - Procedures Procedures: None - Laboratory Labs: 09/21/17 04:49 09/22/17 07:29 - Microbiology Microbiology 09/15/17 08:32 Urine, Voided (Cc/notcc) Urine Culture - Final- Escherichia coli - Radiology Radiology: 09/15/17-CT scan of the abdomen and pelvis- Impression: 1. Acute pancreatitis. 2. Hepatic stenosis. 09/20/17-KUB [id number]: Some air-filled loops of nondilated large and small bowel are noted which could represent a mild ileus. Clinical correlation is suggested. 09/22/17- Kub Xray-Impression: Nonobstructive nonspecific bowel gas pattern. - Pathology None History of Present Illness HPI: Patient is a 57 yo female who presented to ED this am with abdominal pain. Sxs x 3 days - progressively worsening. Vomiting this am and diarrhea x several days. Drinks 1-2 fifths of vodka (w/ DrPepper) daily. Had quit for 16 yrs but restarted about a year ago. (She quit cold turkey at that time. States she had withdrawal sxs but no seizures.) Has had pancreatitis x 1 in the past. Takes no regular medications but states she was on oxycontin and methadone through Dr. Singleton but they "parted way" several months ago. States she went through significant withdrawal when coming off of those meds. [facility] shows meds last filled in March. Is on disability for chronic back and leg pain which she states is d/t rheumatoid arthritis. States if she has seen a youth leader, it's been many years ago. She was on atenolol in past for BP but hasn't been taking. She drinks to help with the pain and to deal with stress r/t her mother's Alzheimer's dx. Patient had CT in ER consistent with acute pancreatitis. Lipase elevated. Liver enzymes only slightly elevated. She has had Dilauded 0.5mg x 2, Toradol 30mg IV x1 and a GI cocktail. She continues to have signficant pain. She's had a liter of NS and it continues to run at 125 cc's/hr. UA showed + nitrites. Culture has been set up. Urinary sxs of dysuria and frequency are not present. She has new onset of stress incontinence over the past month. Objective Vital signs: Temperature 97.2 F 09/22/17 08:12 Pulse Rate 90 09/22/17 08:12 Respiratory Rate 18 09/22/17 08:12 Blood Pressure 151/83 H 09/22/17 08:12 Pulse Oximetry 95 09/22/17 08:12 Rhythm: Normal Sinus Rhythm Height/Weight/BMI: Height 1.75 m Weight 127.4 kg Body Mass Index 38.5 - Constitutional Present: no acute distress, well nourished, well developed - Routine HEENT Exam Eye: Present: EOMI ENT: Present: mucous membranes moist, dentition normal - Routine Respiratory Exam Present: CTA bilaterally. Absent: wheezes - Routine Cardiovascular Exam Present: RRR, S1, S2. Absent: murmur - Routine Abdominal Exam Present: soft, normoactive bowel sounds, non distended. Absent: tenderness - Routine Extremities Exam Present: full ROM, normal capillary refill - Routine Back/Spine/Pelvis Exam Back/Spine: Present: full ROM - Routine Skin Exam Present: intact, dry, warm - Routine Neurological Exam Present: alert, oriented X3, CN II-XII intact, moving all extremities - Routine Lymphatic Exam Lymphatic: Absent: adenopathy - Routine Psychiatric Exam Present: normal affect, cooperative, good insight, good judgment Hospital Course This is a general summary of the patient's hospital course. For more details refer to the complete medical record. Hospital course: 09/16/17 12:14 Will make Percocet available along with increasing amount of Dilaudid. Will let her try clears. Add Reglan to prn antiemetic regimen. She is afebrile. Will monitor WBC. E. coli id'd in urine. Continue Rocephin pending sensitivities. Minimal signs of withdrawal. Will considering starting serax taper tomorrow. BP remains elevated. Will switch to po Metoprolol. 09/17/17 15:57 Will keep Dilaudid for breakthrough pain and encourage Percocet for longer pain control. Tolerating some liquids. Decrease IVF. WBC trending up with increase in bands. She is afebrile. On ceftriaxone for UTI. Continue to follow CBC. No sx of etoh withdrawal. Will decrease Serax. BP is better today. Replace K in ivf. 09/18/17 17:00 Pt not doing that much better. Will cont. to do supportive tx for pancreatitis and monitor. 09/19/17 12:21 Pt reports she is improving. Will cont. abx for uti, supportive tx for pancreatitis and titrate down pain meds d/t constipation and previous hx of opiate abuse. 09/20/17 Pancreatitis - supportive care. K slightly low; leukocytosis/bandemia improving. Rocephin DC'd for E. coli UTI. 09/21/17 Overall abdomen is more distended without without significant tenderness. She did have 3 moderated bowel movements this morning. Continue with bowel motivation. Have asked nursing staff to re-weigh today and follow weights closely. Wt documented as 32lbs up since admission. Completed 5 day course of IV Rocephin for pansensitive urinary tract infection. Discontinued more finding and the allotted to minimize IV opiate use. May continue with scheduled Percocet for chronic back pain. 09/22/17- Discharge Radha is seen and examined on day of discharge. She is doing well without any complaints. Her bowels have been moving more aggressively. She is eating and drinking normally without any pain or nausea. Plan is to send her home, would like patient to take Norvasc 5 millirems daily for blood pressure control. We did discuss the importance of establishing with a primary care provider for ongoing health care. [facility] She verbalized understanding and will contact them next week. Will send patient with Percocet # 12 to utilize over the next 4-5 days for ongoing chronic pain. Recommend continuing senna plus, and MiraLAX scheduled for ongoing bowel motivation. Encourage continue cessation of alcohol use. Patient discharged in stable condition with significant other. Time spent with patient: discharge greater than 30 minutes Discharge Plan - Discharge Disposition Discharge Date: 09/22/17 Disposition: 01 Discharged Home, Self-Care *Condition: Stable Reason For Visit (Visit label in EMR): alcoholic pancreatitis - Discharge Medications *Discharge Medications: New Oxycodone/Apap 10/325 [Percocet 10/325] 1 tab PO Q4H PRN #12 tab PRN Reason: Pain PEG 3350 17gm PACKET [Miralax] 17 gm PO DAILY #30 packet Amlodipine Besylate [Norvasc] 5 mg PO DAILY #30 tab Senna + Docusate [Senna Plus Tablet] 1 tab PO BID tab - Discharge Packet/Instructions *Diet: regular *Activity: Activity as tolerated *Pain Management/Treatment: Percocet as needed for pain *Wound Care: None Additional Instructions: Senna plus and Miralax daily for bowel motivation *Expected Signs/Symptoms: Continued improvement in strength *Notify Physician if: Fever, Chills, Shortness of breath, chest pain , severe abdominal pain *During Business Hours Contact: Establish with PCP at [facility] [place] *After Business Hours Contact: Present to the ER - Referrals/Follow Up *Referrals/Follow Up: [facility] [Provider [facility]] (APPOINTMENT WITH DR VILLANUEVA ON 10/19 AT [facility] LOC[facility] AT [facility] - Patient Handouts - Dismissal Complete Discharge Instructions are:: Complete <Alan Hogan - Last Filed: 09/22/17 15:54> Discharge Information Date of admission: 09/15/17 10:51 Attending Physician: Alan Hogan MD Consults: 09/15/17 12:04 Case Management Consult [CONS] Routine Reason For Exam: assist pt in getting set up with a PCP - Discharge Diagnosis (1) Pancreatitis Status: Acute (2) Urinary tract infection Status: Acute - Laboratory Labs: 09/21/17 04:49 09/22/17 07:29 Objective Vital signs: Temperature 97.2 F 09/22/17 08:12 Pulse Rate 90 09/22/17 08:12 Respiratory Rate 18 09/22/17 08:12 Blood Pressure 151/83 H 09/22/17 08:12 Pulse Oximetry 95 09/22/17 08:12 Height/Weight/BMI: Height 5 ft 9 in Weight 127.4 kg Body Mass Index 38.5 Hospital Course This is a general summary of the patient's hospital course. For more details refer to the complete medical record.
== END 2017-09-22 14:40 | disposition home or self-care (01) | DRG 439 ==
LOC: ED 07:19 → SUATTDRO 10:51 → MED 10:51
PROVIDERS: ADMIT Hospitalist; ATTEND Internal Medicine

== ENCOUNTER 2018-02-15 15:02 | Inpatient (IN) ==
--- NOTE | 2018-02-15 15:25 | Emergency Department Report ---
Abdominal Pain HPI - General Chief Complaint: Abdominal Pain Stated Complaint: ab pain x 3 days Time Seen by Provider: 02/15/18 15:25 Source: patient, EMS Mode of arrival: EMS Limitations: no limitations - History of Present Illness HPI narrative: She is a 57-year-old female, presents emergency room for evaluation of abdominal pain. Patient does have a history of chronic pancreatitis secondary to alcoholism, did have a significant amount of drinking on Wednesday. Patient' s been having abdominal pain with associated nausea and diarrhea since that time. Today became 08/10, and today decided present to the ER for evaluation. MD complaint: abdominal pain Onset (ago): day(s) Consistency: constant Location: LUQ, epigastric Severity: severe Severity scale (1-10): >10 Quality: stabbing Radiation: epigastric - Related Data Home Medications Medication Instructions Recorded Confirmed Amlodipine [Norvasc] 40 mg PO DAILY 02/15/18 02/15/18 Allergies Allergy/AdvReac Type Severity Reaction Status Date / Time clarithromycin Allergy Mild Verified 02/15/18 19:39 Review of Systems Constitutional: Denies: fever, chills, weakness ENT: Denies: ear pain, throat pain, dental pain Cardiovascular: Denies: chest pain, palpitations, dyspnea on exertion Respiratory: Denies: cough, dyspnea, wheezes Gastrointestinal: Reports: abdominal pain, diarrhea. Denies: nausea, vomiting Neurological: Denies: headache, weakness, numbness Endocrine: Denies: fatigue Hematological/Lymphatic: Denies: easy bleeding Allergic/Immunologic: Denies: facial swelling PFSH Patient Stated Medical History Migraine Yes Syncope Yes Hypertension Yes Bronchitis Yes: HX Gastroesophageal Reflux Yes Disease Other GI Yes: PANCREATITIS Other Musculoskeletal Yes: ARTHRITIS Depression Yes Other Behavioral Health Yes: PAST DRUG USE Post Menopausal Yes Now No Surgical History: b/l lumpectomy (pt reports "precancerous" cells) with removal of lymph nodes per pt (Dr Perez), appy - Social History Smoking status: Current every day smoker Substance use type: does not use Alcohol intake: current Alcohol intake frequency: other (1-2 fifths of vodka daily) Housing: apartment Household members: none Current occupation: disabled d/t chronic back and leg pain Physical Exam - General General appearance: alert, in no apparent distress - Eye Eye exam: Present: PERRL - ENT ENT exam: Present: normal oropharynx, mucous membranes moist, TM's normal bilaterally - Neck Neck exam: Present: trachea midline - Chest Chest inspection: Present: symmetric chest wall rise. Absent: tenderness - Respiratory Respiratory exam: Present: normal lung sounds bilaterally. Absent: respiratory distress, wheezes, stridor - Cardiovascular Cardiovascular exam: Present: regular rate, normal rhythm, normal heart sounds - Abdominal Exam Abdominal exam: Present: soft, distention, tenderness (epigastric and left upper quadrant), normal bowel sounds - Skin Skin exam: Present: warm, dry - Neurological Exam Neurological exam: Present: alert, oriented X3 - Psychiatric Psychiatric exam: Present: normal affect, normal mood Course Vital Signs Temperature 97.9 F 02/15/18 15:05 Pulse Rate 97 02/15/18 15:05 Respiratory Rate 20 02/15/18 15:05 Blood Pressure 205/88 H 02/15/18 15:05 Pulse Oximetry 99 02/15/18 15:05 Temperature 97.9 F 02/15/18 15:05 Pulse Rate 94 02/15/18 15:16 Respiratory Rate 20 02/15/18 15:05 Blood Pressure 200/79 H 02/15/18 15:16 Pulse Oximetry 99 02/15/18 15:16 Abdominal Pain - Differential Diagnosis Differential diagnosis: Likely: abdominal pain, acute appendicitis, calculus of kidney, constipation, diverticulitis, endometriosis, gastroenteritis, pancreatitis, small bowel obstruction - Medical Records Attestation: I reviewed the patient's medical records. - Lab Data Attestation: I reviewed the patient's lab results. Result diagrams: 02/16/18 04:38 02/16/18 04:38 - Radiology Data Attestation: I reviewed the patient's radiology results. Pancreatitis, no diverticulitis Disposition Clinical Impression: Pancreatitis Disposition: 02 To [facility] [place] Acute Care Condition: Stable - Seen By: physician
[2018-02-15] MEDS ORDERED: PROCHLORPERAZINE 10 MG/2 ML INJECTION IVP ONE (15:34)
[2018-02-15] MEDS ORDERED: MORPHINE SULFATE 4mg INJECTION IVP ONE (15:34)
[2018-02-15] MEDS ORDERED: NS 1,000 ML IV ONE (15:34)
[2018-02-15] MEDS ORDERED: SALINE FLUSH 10ml SYRINGE ONE (15:58)
[2018-02-15] MEDS ORDERED: IOHEXOL 300mg/ml 100ml INJECTION ONE (15:58)
--- NOTE | 2018-02-15 16:36 | CT Scan Report ---
Indication: diffuse abdominal pain, alcoholic pancreatitis, R/O Divertic PROCEDURE: CT abdomen pelvis w con: Encounter: Initial Comparison: September 15, 2017 Technique: Axial CT images were performed through the abdomen and pelvis after the administration of intravenous contrast. Coronal and sagittal two-dimensional reformats. Automated Exposure Control and Iterative Reconstruction dose reducing techniques were utilized. Contrast: Omnipaque 300 100 mL Findings: The lung bases are grossly clear. The liver is fatty infiltrated without enhancing mass or bile duct dilatation. The gallbladder is unremarkable. Spleen appears normal. There is inflammatory stranding adjacent to the body of the pancreas. This is less pronounced than the comparison study. No areas of hypoenhancing or nonenhancing pancreatic tissue identified to suggest a necrotizing component. The adrenal glands are normal. The kidneys are stable. No abdominal or pelvic lymphadenopathy. The bladder is normal. Uterus is unremarkable. No free fluid in the pelvis. No bowel obstruction. Prior appendectomy. Bone windows show no acute findings. Impression: 1. Mild acute pancreatitis. 2. Hepatic steatosis. .
[2018-02-15] MEDS ORDERED: LABETALOL 100mg/20ml INJECTION IVP ONE (16:43)
[2018-02-15] MEDS ORDERED: HYDRALAZINE 20 MG/ML INJECTION IVP ONE (16:43)
[2018-02-15 18:34] VITALS: BMI 38.9
[2018-02-15] MEDS ORDERED: BISACODYL 10 MG SUPPOSITORY RECTALLY PRN (18:51)
[2018-02-15] MEDS ORDERED: ONDANSETRON 4 MG/2 ML INJECTION IVP PRN (18:51)
--- NOTE | 2018-02-15 19:04 | History & Physical Report ---
History of Present Illness Date: 02/15/18 Chief complaint: abdominal pain HPI: Ms. Gilbert is a 57-year-old female patient with a history of binge drinking and prior pancreatitis. She states that her last alcoholic beverage was 4 days ago. 3 days ago she started having pain in the epigastric area described as sharp that radiated into her back and into her shoulder blades. The day before yesterday she was nauseated and had some vomiting but has not had any since. She ate last about 530 this morning. She states that eating and drinking does not make her pain any worse. However in saying, that she states the worst of her pain was today. She does have pain trying to take a deep breath. Wednesday she was lightheaded and felt like she was going to pass out but had no actual syncope. She denies fever or chills. She denies any coffer sputum production. She denies palpitations. She does state that taking a deep breath makes her chest hurt. She denies feeling short of breath. She denies feeling any dyspnea with exertion, PND or orthopnea. She has no current problems with nausea or vomiting and none since the day before yesterday. She denies any diarrhea or constipation currently but does state that she does have some diarrhea on and off routinely. She denies any black tarry stools or bloody stools. She denies any urinary symptoms. She denies any problems with lower extremity edema. She was admitted for pancreatitis last back in September. She states she does not drink on a daily basis but when she does drink she typically binges. Review of Systems All systems PM: 10-point ROS was reviewed, no additional remarkable complaints except Past Medical History Medical History Updates: Hypertension. recurrent pancreatitis due to alcohol intake Surgical History: b/l lumpectomy (pt reports "precancerous" cells) with removal of lymph nodes per pt (Dr Perez), appy, C-sections times 2 Family History: Mom is living at 85 with a history of Alzheimer's and history of breast cancer dad in his early 70s with a stroke and prostate cancer. Family History: As Above - Social History Smoking status: Current every day smoker (1 pack lasts are about 4 days, she's been smoking since she was 21.) Substance use type: does not use Alcohol intake: current Alcohol intake frequency: a few times a month Last drink: days (ago) (4) Household members: none Current occupational status: disabled Does patient use chewing tobacco?: No Current residence: Apartment/Private Home Social history: She walks unassisted. She does her ADLs. Medications Home Medications Medication Instructions Recorded Confirmed Type Amlodipine [Norvasc] 40 mg PO DAILY 02/15/18 02/15/18 History Allergies Allergy/AdvReac Type Severity Reaction Status Date / Time clarithromycin Allergy Mild Verified 01/19/18 22:53 Exam Vital Signs: Temperature 96.0 F L 02/15/18 18:32 Pulse Rate 86 02/15/18 18:32 Respiratory Rate 18 02/15/18 18:32 Blood Pressure 165/91 H 02/15/18 18:32 Pulse Oximetry 98 02/15/18 18:32 Height/Weight/BMI: Height 1.7 m Weight 112.7 kg Body Mass Index 38.9 Comments: Gen: alert and oriented. NAD Skin: warm and dry HEENT: NC/AT PERRL, EOMI, Sclera, lids and conjunctiva wnl. MMM. OP clear. edentulous Neck: No JVD, Carotids 2+ without bruits Lungs: clear. No rales, rhonchi or wheezes CV: regular. No murmur, rub or gallop Abd: soft. +BS. NT/ND MS: No edema. Good strength and ROM, good PT/DP pulses Neuro: No focal deficits Psy: Appropriate mood and affect Results - Labs CBC & Chem 7: 02/15/18 15:27 02/15/18 15:27 Assessment and Plan Assessment and Plan: (1) Pancreatitis -current and recurrent associated with alcohol use. -IV fluids and IV pain management -repeat labs in a.m. -will check lipid in a.m. (2) Urinary tract infection -will start Rocephin and overweight cultures (3) Abdominal pain-diffuse/severe -likely related to Acute pancreatitis (4) Alcohol dependence -patient denies daily use (5) Chronic pain -no chronic pain meds listed in her current medication list. (6) HTN -her current medication is Norvasc 40mg daily which is way above recommended dosing. -Due to her NPO status I'm going to do PRN hydralazine but we will have to come up with a better PO regimen prior to discharge. (7) Tobacco abuse -advised cessation (8) prophylaxis -PPI and sub Q heparin DVT Prophylaxis: SQ Heparin GI Prophylaxis: Protonix Resuscitation Status: Full Code - Time spent with patient Time with patient PN: 25 minutes - Physician Narrative Narrative: Date: 02/15/18 Time: 1900 Hospital Course Summary Disclaimer: The visit summary below is not to be considered part of the above Progress Note.
[2018-02-15] MEDS: HEPARIN SUB-Q 5,000units/0.5ml INJECTION SQ SCH (19:51)
[2018-02-15] MEDS: SALINE FLUSH 10ml SYRINGE IVF PRN ×2 (19:51→19:57)
[2018-02-15] MEDS: NS 1,000 ML IV SCH (19:51)
[2018-02-15] MEDS: CEFTRIAXONE 1 G in NS 100 ML IV SCH (19:51)
[2018-02-15] MEDS: MORPHINE SULFATE 2mg INJ IVP PRN ×2 (19:57→23:01)
[2018-02-15] MEDS: HYDRALAZINE 20 MG/ML INJECTION IVP PRN (23:25)
[2018-02-16] MEDS: HEPARIN SUB-Q 5,000units/0.5ml INJECTION SQ SCH ×3 (03:12→17:45)
[2018-02-16] MEDS: MORPHINE SULFATE 2mg INJ IVP PRN (03:12)
[2018-02-16] MEDS: NS 1,000 ML IV SCH ×3 (03:33→17:44)
[2018-02-16] MEDS: MORPHINE SULFATE 4mg INJECTION IVP PRN ×5 (06:31→22:21)
[2018-02-16] MEDS: PANTOPRAZOLE 40 MG INJECTION IVP SCH (10:00)
--- NOTE | 2018-02-16 13:16 | Progress Note ---
- Date 02/16/18 Subjective: Radha is seen today in follow-up. She is resting comfortably in bed, she does continue to have some diffuse mild abdominal discomfort. However, denies having any nausea. No shortness of breath or chest pain. Bowels are moving adequately. Blood pressure mildly up 159/89. Objective Vital signs: Temperature 97.9 F 02/16/18 07:00 Pulse Rate 97 02/16/18 07:00 Respiratory Rate 20 02/16/18 07:00 Blood Pressure 159/89 H 02/16/18 07:00 Pulse Oximetry 97 02/16/18 07:00 Height/Weight/BMI: Height 1.7 m Weight 113.7 kg Body Mass Index 38.9 - Constitutional Present: no acute distress, well nourished, well developed - Routine HEENT Exam Eye: Present: EOMI ENT: Present: mucous membranes moist, dentition normal - Routine Respiratory Exam Present: CTA bilaterally. Absent: wheezes - Routine Cardiovascular Exam Present: RRR, S1, S2. Absent: murmur - Routine Abdominal Exam Present: soft, tenderness (diffusely), non distended. Absent: normoactive bowel sounds (hypoactive) - Routine Extremities Exam Present: normal capillary refill - Routine Skin Exam Present: dry, warm - Routine Neurological Exam Present: alert, oriented X3, CN II-XII intact, moving all extremities - Routine Lymphatic Exam Lymphatic: Absent: adenopathy - Routine Psychiatric Exam Present: normal affect, normal thought process, cooperative Results - Labs CBC & Chem 7: 02/16/18 04:38 02/16/18 04:38 Assessment and Plan Assessment and Plan: (1) Pancreatitis -current and recurrent associated with alcohol use. -IV fluids and IV pain management -repeat labs in a.m. -will check lipid in a.m. (2) Urinary tract infection -will start Rocephin and overweight cultures (3) Abdominal pain-diffuse/severe -likely related to Acute pancreatitis (4) Alcohol dependence -patient denies daily use (5) Chronic pain -no chronic pain meds listed in her current medication list. (6) HTN -her current medication is Norvasc 40mg daily which is way above recommended dosing. -Due to her NPO status I'm going to do PRN hydralazine but we will have to come up with a better PO regimen prior to discharge. (7) Tobacco abuse -advised cessation (8) prophylaxis -PPI and sub Q heparin Plan- 02/16 Will advance diet to full liquids and see how patient tolerates. Continue with IV Rocephin for treatment of Escherichia coli positive UTI. Sensitivities pending. Continue to follow labs, LFTs and lipase have trended down. Continue to follow blood pressure, home Norvasc is on hold. Utilize IV hydralazine as needed Continues to utilize morphine for abdominal pain control Check CBC and CMP to follow blood counts, renal function and electrolytes - Physician Narrative Physician: Mary Nieves MD Narrative: Date: 02/16/18 Time: 1609 The patient was interviewed and examined by me today. She is resting comfortably. She states that her pain is better. She would like to try more to eat. She denies any other complaints to me particularly no fever chills. She denies shortness of breath, coffer sputum production. She denies chest pain or palpitations. She denies nausea or vomiting. She reports her bowels are working. She denies any genitourinary complaints. She reports she is ambulating without difficulty. PE: Gen: alert and oriented. NAD Skin: warm and dry HEENT: NC/AT PERRL, EOMI, Sclera, lids and conjunctiva wnl. MMM. OP clear. edentulous Neck: No JVD, Carotids 2+ without bruits Lungs: clear. No rales, rhonchi or wheezes CV: regular. No murmur, rub or gallop Abd: soft. +BS. NT/ND MS: No edema. Good strength and ROM, good PT/DP pulses Neuro: No focal deficits Psy: Appropriate mood and affect Assessment and Plan: (1) Pancreatitis -current and recurrent associated with alcohol use. -IV fluids and IV pain management -repeat labs in a.m. -advance diet to full liquid (2) Urinary tract infection -E coli in urine. -continue Rocephin and await sensitivities (3) Abdominal pain-diffuse/severe -likely related to Acute pancreatitis (4) Alcohol dependence -patient denies daily use (5) Chronic pain -no chronic pain meds listed in her current medication list. (6) HTN -her current medication is Norvasc 40mg daily which is way above recommended dosing. -Will start lisinopril along with Norvasc 10 daily -continue PRN hydralazine as needed until we get the correct doses of her chronic medications (7) Tobacco abuse -advised cessation (8) prophylaxis -PPI and sub Q heparin Patient was discussed with Yajaira Venegas APRN. I have independently examined and interviewed the patient. My documentation is noted above. Hospital Course Summary Disclaimer: The visit summary below is not to be considered part of the above Progress Note. Hospital Course: Plan- 02/16 Will advance diet to full liquids and see how patient tolerates. Continue with IV Rocephin for treatment of Escherichia coli positive UTI. Sensitivities pending. Continue to follow labs, LFTs and lipase have trended down. Continue to follow blood pressure, home Norvasc is on hold. Utilize IV hydralazine as needed Continues to utilize morphine for abdominal pain control Check CBC and CMP to follow blood counts, renal function and electrolytes
[2018-02-16] MEDS: AMLODIPINE 10 MG TABLET PO SCH (17:45)
[2018-02-16] MEDS: LISINOPRIL 10 MG TABLET PO SCH (17:45)
[2018-02-16] MEDS: HYDRALAZINE 20 MG/ML INJECTION IVP PRN (17:45)
[2018-02-16] MEDS ORDERED: PNEUMOCOCCAL 13 VACCINE 0.5ml INJECTION IM ONE (18:03)
[2018-02-16] MEDS: CEFTRIAXONE 1 G in NS 100 ML IV SCH (19:03)
[2018-02-16] MEDS ORDERED: HYDRALAZINE 20 MG/ML INJECTION IVP PRN (20:24)
[2018-02-16] MEDS ORDERED: NICOTINE 14 MG PATCH TD PRN (22:55)
[2018-02-17] MEDS: NS 1,000 ML IV SCH ×2 (00:29→07:46)
[2018-02-17] MEDS: HEPARIN SUB-Q 5,000units/0.5ml INJECTION SQ SCH ×2 (01:29→09:25)
[2018-02-17] MEDS: MORPHINE SULFATE 4mg INJECTION IVP PRN ×3 (01:29→12:06)
[2018-02-17 07:34] VITALS: BP 150/81; RESP 18; TEMP 97.1; O2SAT 98
[2018-02-17] MEDS: PANTOPRAZOLE 40 MG INJECTION IVP SCH (08:17)
[2018-02-17] MEDS: AMLODIPINE 10 MG TABLET PO SCH (08:18)
[2018-02-17] MEDS: LISINOPRIL 10 MG TABLET PO SCH (08:19)
[2018-02-17] MEDS: SALINE FLUSH 10ml SYRINGE IVF PRN (12:07)
[2018-02-17 12:52] VITALS: PULSE 75
[2018-02-17] MEDS ORDERED: LISINOPRIL 10 MG TABLET PO SCH (14:01)
--- NOTE | 2018-02-17 14:01 | Discharge Summary ---
Discharge Information Date of admission: 02/15/18 18:18 Anticipated date of discharge: 02/17/18 Attending Physician: Mary Nieves MD Primary care physician: Pt to start going to [facility]. Pancreatitis due to alcohol consumption UTI HTN Smoker - Laboratory Labs: 02/17/18 04:22 02/17/18 04:22 - Radiology Radiology: 02/15/18 CT abdomen and pelvis Impression: 1. Mild acute pancreatitis. 2. Hepatic steatosis. History of Present Illness HPI: Ms. Gilbert is a 57-year-old female patient with a history of binge drinking and prior pancreatitis. She states that her last alcoholic beverage was 4 days ago. 3 days ago she started having pain in the epigastric area described as sharp that radiated into her back and into her shoulder blades. The day before yesterday she was nauseated and had some vomiting but has not had any since. She ate last about 530 this morning. She states that eating and drinking does not make her pain any worse. However in saying, that she states the worst of her pain was today. She does have pain trying to take a deep breath. Wednesday she was lightheaded and felt like she was going to pass out but had no actual syncope. She denies fever or chills. She denies any coffer sputum production. She denies palpitations. She does state that taking a deep breath makes her chest hurt. She denies feeling short of breath. She denies feeling any dyspnea with exertion, PND or orthopnea. She has no current problems with nausea or vomiting and none since the day before yesterday. She denies any diarrhea or constipation currently but does state that she does have some diarrhea on and off routinely. She denies any black tarry stools or bloody stools. She denies any urinary symptoms. She denies any problems with lower extremity edema. She was admitted for pancreatitis last back in September. She states she does not drink on a daily basis but when she does drink she typically binges. Objective Vital signs: Temperature 97.1 F 02/17/18 07:32 Pulse Rate 75 02/17/18 08:00 Respiratory Rate 18 02/17/18 07:32 Blood Pressure 150/81 H 02/17/18 07:32 Pulse Oximetry 98 02/17/18 07:32 Height/Weight/BMI: Height 1.7 m Weight 115 kg Body Mass Index 38.9 Comments: Gen: alert and oriented. NAD Skin: warm and dry HEENT: NC/AT PERRL, EOMI, Sclera, lids and conjunctiva wnl. MMM. OP clear. edentulous Neck: No JVD, Carotids 2+ without bruits Lungs: clear. No rales, rhonchi or wheezes CV: regular. No murmur, rub or gallop Abd: soft. +BS. Mild TTP, ND MS: No edema. Good strength and ROM, good PT/DP pulses Neuro: No focal deficits Psy: Appropriate mood and affect Hospital Course This is a general summary of the patient's hospital course. For more details refer to the complete medical record. Hospital course: Patient was admitted and placed on IV fluids with ice chips only. Her lipase trended down very nicely. She tolerated advancing her diet to regular without issues. She was found to have a urinary tract infection with E. coli that was pain sensitive. This was treated with Rocephin IV. She was up and ambulating. Her blood pressure medication was adjusted. She was felt to be stable for discharge. I discussed the need for her to get a primary care physician to address the blood pressure issue. [facility] to get her set up there. I have strongly encouraged her to abstain from alcohol altogether. She has been counseled on smoking cessation as well. Time spent with patient: 25 - 35 minutes Discharge Plan - Discharge Disposition Discharge Date: 02/17/18 Disposition: 01 Discharged Home, Self-Care *Condition: Stable Reason For Visit (Visit label in EMR): Pancreatitis and UTI - Discharge Medications *Discharge Medications: New Ciprofloxacin [Cipro 250 mg] 250 mg PO BID 3 Days #6 tab Lisinopril [Prinivil] 20 mg PO DAILY #30 tab Pantoprazole Tab [Protonix Tab] 40 mg PO ACB #30 tab Amlodipine [Norvasc] 10 mg PO DAILY #30 tab Discontinued Amlodipine [Norvasc] 40 mg PO DAILY - Discharge Packet/Instructions *Diet: Low sodium, alcohol free *Activity: as tolerated *Pain Management/Treatment: Tylenol *Wound Care: N/A *Expected Signs/Symptoms: N/A *Notify Physician if: Recurrent abdominal pain, elevated BP *During Business Hours Contact: PCP *After Business Hours Contact: oxyacetylene welder for PCP *Pending Lab/Results: No Pending Lab - Referrals/Follow Up *Referrals/Follow Up: Stefan Benítez DO [Physician] - 1 Week - Patient Handouts - Dismissal Complete Discharge Instructions are:: Complete Physician Narrative - Narrative Attestation Narrative: Date: 02/17/18 Time: 3338
[2018-02-17] MEDS ORDERED: NICOTINE PATCH REMOVAL TD PRN (21:00)
[2018-02-18] MEDS ORDERED: PANTOPRAZOLE 40 MG TABLET PO SCH (06:30)
== END 2018-02-17 15:00 | disposition home or self-care (01) | DRG 439 ==
LOC: ED 15:02 → MED 18:10
PROVIDERS: ADMIT Internal Medicine Cardiovascular Disease; ATTEND Internal Medicine Cardiovascular Disease